=== PATIENT | male | born 1985 | race Caucasian/White ===

== ENCOUNTER 2016-09-25 11:25 | Emergency (ER) | payer OTHER ==
[2016-09-25 11:40] VITALS: BP 161/96
--- NOTE | 2016-09-25 12:11 | XRAY ---
Indication: Cough. Comparison: June 16, 2016. PA/lateral chest remains clear. Heart is not enlarged again with left-sided Groshong. Vascularity normal. Bony thorax intact. Impression: Stable nonacute chest.
[2016-09-25 12:39] LABS: Mean Cell Volume 87.4 fl (78-100); Mean Corpuscular Hemoglobin 30.6 pg (26-32); Mean Platelet Volume 10.7 fl (6-9.5); Platelet Count 172 K/mm3 (150-450); Red Blood Count 4.94 M/mm3 (4.1-5.6); Red Cell Distribution Width 12.8 % (11.5-14.0); White Blood Count 9.8 K/mm3 (4.0-10.5)
[2016-09-25 12:47] LABS: ALBUMIN 3.5 g/dL (3.4-5.0); ALKALINE PHOSPHATASE 60 U/L (46-116); ANION GAP 16.5 MEQ/L (5-15); BILIRUBIN,TOTAL 0.4 mg/dL (0.2-1.0); BLOOD UREA NITROGEN 13 mg/dL (9-20); CHLORIDE 103 mEq/L (98-107); Carbon Dioxide 25.9 mEq/L (21-32); Glucose 167 MG/DL (70-110); SGOT/AST 20 U/L (15-37); SGPT/ALT 31 U/L (12-78); SODIUM 141 mEq/L (136-145); Total Protein 6.9 gm/dL (6.4-8.2)
--- NOTE | 2016-09-25 13:04 | ERPHSYRPT ---
- History of Present Illness Time Seen by Provider: 09/25/16 11:35 Source: patient Exam Limitations: no limitations Patient Subjective Stated Complaint: cough, congestion Triage Nursing Assessment: cough with yellow sputum for 1 week. congestion to nasal. unsure of fever. states been to dr and quick [facility] and on atb. states gets sob and headache with excertion. lungs diminished but clear. moist cough noted. Cough Quality/Degree: moderate, dry cough Possible Cause: occasional episodes Modifying Factors: Improves With: coughing Associated Symptoms: cough, headache, nasal congestion, nasal drainage, sore throat Allergies/Adverse Reactions: No Known Drug Allergies Allergy (Verified 09/25/16 11:40) Home Medications: Losartan Potassium 50 mg PO DAILY 02/12/14 [History] Metoprolol Succinate 50 mg [Toprol Xl 50 MG] 50 mg PO BID 01/28/15 [ History] Duloxetine HCl [Cymbalta] 120 mg PO DAILY 03/28/15 [History] Clonazepam 0.5 mg [Klonopin 0.5 MG] 1 mg PO TID 06/16/16 [History] Divalproex Sodium [Divalproex Sodium ER] 1,500 mg PO DAILY 06/16/16 [History] Pregabalin [Lyrica 150Mg] 150 mg PO BID 06/16/16 [History] Triamterene/Hydrochlorothiazid [Triamterene-Hctz 75-50 mg Tab] 1 tab PO DAILY [History] Hx Tetanus, Diphtheria Vaccination/Date Given: Yes Hx Influenza Vaccination/Date Given: No Hx Pneumococcal Vaccination/Date Given: No Immunizations Up to Date: Yes - Review of Systems Constitutional: No Symptoms Eyes: No Symptoms Ears, Nose, & Throat: Nose Congestion, Nose Discharge, Painful Swallowing Respiratory: Cough Cardiac: No Symptoms Abdominal/Gastrointestinal: No Symptoms Musculoskeletal: No Symptoms Skin: No Symptoms Neurological: No Symptoms Psychological: No Symptoms Endocrine: No Symptoms Hematologic/Lymphatic: No Symptoms - Past Medical History Pertinent Past Medical History: Yes Neurological History: No Pertinent History ENT History: No Pertinent History Cardiac History: Hypertension Respiratory History: No Pertinent History Endocrine Medical History: No Pertinent History Musculoskeletal History: No Pertinent History GI Medical History: No Pertinent History History: No Pertinent History Psycho-Social History: Anxiety, Bipolar, Depression Male Reproductive Disorders: No Pertinent History Other Medical History: hemochromotosis - Past Surgical History Past Surgical History: Yes Neuro Surgical History: No Pertinent History Cardiac: No Pertinent History Respiratory: No Pertinent History Gastrointestinal: Cholecystectomy, Hernia Repair Genitourinary: No Pertinent History Musculoskeletal: No Pertinent History, Other Male Surgical History: No Pertinent History Other Surgical History: central line Groshong CV catheterx3 - Social History Smoking Status: Never smoker Exposure to second hand smoke: No Drug Use: none Patient Lives Alone: No - Nursing Vital Signs Nursing Vital Signs: Initial Vital Signs Temperature 98.0 F Temperature Source Oral Pulse Rate 116 Respiratory Rate 26 Blood Pressure [Right Arm] 161/96 Pain Intensity 7 - Physical Exam General Appearance: mild distress Eye Exam: eyes nml inspection Ears, Nose, Throat Exam: normal ENT inspection, pharynx normal, moist mucous membranes Neck Exam: normal inspection, non-tender, supple, full range of motion Respiratory Exam: normal breath sounds, lungs clear Cardiovascular Exam: regular rate/rhythm, normal heart sounds, normal peripheral pulses Gastrointestinal/Abdomen Exam: soft, normal bowel sounds Back Exam: normal inspection, decreased range of motion Extremity Exam: normal inspection, normal range of motion, pelvis stable Neurologic Exam: alert, oriented x 3, cooperative, normal mood/affect Skin Exam: normal color, warm, dry SpO2 Interpretation: normal SpO2: 96 Oxygen Delivery: Room Air - Course Nursing assessment & vital signs reviewed: Yes Ordered Tests: Active Orders 24 hr Category Date Time Status CHEST 2 VIEWS (PA AND LAT) Stat Exams 09/25/16 11:41 Completed CBC W DIFF Stat Lab 09/25/16 12:41 Completed CMP Stat Lab 09/25/16 12:41 Completed CULTURE, THROAT Stat Lab 09/25/16 12:41 Received Manual Differential NC Stat Lab 09/25/16 12:41 Completed STREP SCREEN-BETA A Stat Lab 09/25/16 12:41 Completed Lab/Rad Data: Laboratory Result Diagrams 09/25/16 12:41 09/25/16 12:41 Laboratory Results 09/25/16 09/25/16 09/25/16 Range/Units 12:41 12:41 12:41 WBC 9.8 (4.0-10.5) K/mm3 RBC 4.94 (4.1-5.6) M/mm3 Hgb 15.1 (12.5-18.0) gm/dl Hct 43.2 (42-50) % MCV 87.4 (78-100) fl MCH 30.6 (26-32) pg MCHC 35.0 (32-36) g/dl RDW 12.8 (11.5-14.0) % Plt Count 172 (150-450) K/mm3 MPV 10.7 H (6-9.5) fl Sodium 141 (136-145) mEq/L Potassium 4.0 (3.5-5.1) mEq/L Chloride 103 (98-107) mEq/L Carbon Dioxide 25.9 (21-32) mEq/L Anion Gap 16.5 H (5-15) MEQ/L BUN 13 (9-20) mg/dL Creatinine 1.03 (0.55-1.30) mg/dl Estimated GFR > 60 ML/MIN Glucose 167 H (70-110) MG/DL Calcium 8.4 L (8.5-10.1) mg/dL Total Bilirubin 0.4 (0.2-1.0) mg/dL AST 20 (15-37) U/L ALT 31 (12-78) U/L Alkaline Phosphatase 60 (46-116) U/L Serum Total Protein 6.9 (6.4-8.2) gm/dL Albumin 3.5 (3.4-5.0) g/dL Streptococcus Screen NEGATIVE (Negative) - Progress Progress: improved Air Movement: good Blood Culture(s) Obtained: No Antibiotics given: No Will see patient in: office (PCP 1 wwek) Counseled pt/family regarding: lab results, diagnosis, need for follow-up, rad results - Departure Time of Disposition: 13:00 Departure Disposition: Home Clinical Impression: URTI (infection of the upper respiratory tract) Qualifiers: URI type: unspecified viral URI Qualified Code(s): J06.9 - Acute upper respiratory infection, unspecified; B97.89 - Other viral agents as the cause of diseases classified elsewhere Condition: Stable Critical Care Time: No Prescriptions: Methylprednisolone Packet [Medrol Dosepack] 0 mg PO UD #1 packet
[2016-09-25 13:23] VITALS: PULSE 108; O2SAT 95
[2016-09-25 13:27] LABS: ATYPICAL LYMPHS 1 %; BAND 6 % (0.0-2.0); Basophil 1 % (0.0-1.0); Eosinophil 3 % (0.00-3.0); Total Cells Counted 100
[2016-09-25 13:29] LABS: Platelet Estimate NORMAL (NORMAL); Polychromasia 1+
== END 2016-09-25 13:26 | disposition home or self-care (01) ==
LOC: ED 11:25
DX: J06.9 Acute upper respiratory infection, unspecified (principal); B97.89 Other viral agents as the cause of diseases classified elsewhere; J02.9 Acute pharyngitis, unspecified; R05 Cough; I10 Essential (primary) hypertension
CPT/HCPCS: 36415; 71020; 80053; 85025; 87070; 87430; 87631; 99283

== ENCOUNTER 2016-10-17 14:04 | Observation (INO) | payer OTHER ==
[2016-10-17] MEDS ORDERED: Sodium Chloride 0.9% 1000 ML 1,000 ML IV SCH (14:30)
[2016-10-17] MEDS ORDERED: Nitrostat 0.4 MG (ED) SL ONE ×2 (14:30→14:40)
[2016-10-17] MEDS ORDERED: DUONEB 0.5-3 MG/3 ml Neb IH ONE ×2 (14:33→14:42)
--- NOTE | 2016-10-17 14:37 | ERPHSYRPT ---
- History of Present Illness Time Seen by Provider: 10/17/16 14:15 Historian: patient Exam Limitations: clinical condition Patient Subjective Stated Complaint: PT REPORTS LEFT SIDED CHEST PAIN BEGINNING JAVIER 1 HR AGO-STATES THAT HE FELT SOB-DIAPHOERICT ALL DAY Triage Nursing Assessment: PT PALE WARM ET [id number] LABORED UPON ARRIVAL- LUNGS CLEAR ET EQUAL BIALTERALLY-SPEAKING IN COMPLETE SENTECES-CAP REFILL 3 SECONDS-RIGHT RADIAL PULSE REGULAR ET STRONG Physician History: PATIENT WITH HISTORY OF HYPERTENSION, MORBID OBESITY, COMPLAINS OF DIAPHOREISIS AND DYSPNEA ALL DAY, WITH ONSET OF SHARP LEFT ANTERIOR CHEST PAINS RADIATES TO LEFT SHOULDER. RECENTLY TREATED FOR BRONCHITIS AND DYSPNEA OVER 6 WEEKS. DENIES FEVER, CHILLS OR NIGHT SWEATS. Timing/Duration: today Activities at Onset: none (DRIVING VEHICLE) Quality: sharpness Location: substernal Chest Pain Radiation: arm Severity of Pain-Max: moderate Severity of Pain-Current: moderate Modifying Factors: Improves With: movement, change in position Associated Symptoms: hurts to breathe, diaphoresis Prior Chest Pain/Cardiac Workup: no prior cardiac workup Nitro Today/Relief: 0.4 mg x 2 Aspirin Treatment Today: 81 mg x 4, provided at home Allergies/Adverse Reactions: No Known Drug Allergies Allergy (Verified 10/17/16 14:10) Home Medications: Losartan Potassium 60 mg PO BID 02/12/14 [History] Metoprolol Succinate 50 mg [Toprol Xl 50 MG] 50 mg PO BID 01/28/15 [ History] Duloxetine HCl [Cymbalta] 120 mg PO DAILY 03/28/15 [History] Clonazepam 0.5 mg [Klonopin 0.5 MG] 1 mg PO TID 06/16/16 [History] Divalproex Sodium [Divalproex Sodium ER] 1,500 mg PO HS 06/16/16 [History] Pregabalin [Lyrica 150Mg] 150 mg PO BID 06/16/16 [History] Triamterene/Hydrochlorothiazid [Triamterene-Hctz 75-50 mg Tab] 1 tab PO DAILY [History] Hx Tetanus, Diphtheria Vaccination/Date Given: Yes Hx Influenza Vaccination/Date Given: No Hx Pneumococcal Vaccination/Date Given: No Immunizations Up to Date: Yes - Review of Systems Constitutional: Weakness Eyes: No Symptoms Ears, Nose, & Throat: No Symptoms Respiratory: Cough, Dyspnea, Dyspnea on Exertion (LUGO) Cardiac: Chest Pain, Other (DIAPHORESIS), No Edema, No Syncope Abdominal/Gastrointestinal: No Abdominal Pain, No Nausea, No Vomiting, No Diarrhea Genitourinary Symptoms: No Symptoms, No Dysuria Musculoskeletal: No Symptoms, No Back Pain, No Neck Pain Skin: No Symptoms, No Rash Neurological: No Symptoms, No Dizziness, No Focal Weakness, No Sensory Changes Psychological: No Symptoms Endocrine: No Symptoms All Other Systems: Reviewed and Negative - Past Medical History Pertinent Past Medical History: Yes Neurological History: No Pertinent History ENT History: No Pertinent History Cardiac History: Hypertension Respiratory History: No Pertinent History Endocrine Medical History: No Pertinent History Musculoskeletal History: No Pertinent History GI Medical History: No Pertinent History History: No Pertinent History Psycho-Social History: Anxiety, Bipolar, Depression Male Reproductive Disorders: No Pertinent History Other Medical History: hemochromotosis - Past Surgical History Past Surgical History: Yes Neuro Surgical History: No Pertinent History Cardiac: No Pertinent History Respiratory: No Pertinent History Gastrointestinal: Cholecystectomy, Hernia Repair Genitourinary: No Pertinent History Musculoskeletal: No Pertinent History, Other Male Surgical History: No Pertinent History Other Surgical History: central line Groshong CV catheterx3 - Social History Smoking Status: Never smoker Exposure to second hand smoke: No Drug Use: none Patient Lives Alone: No - Nursing Vital Signs Temperature: 97.5 F Temperature Source: Oral Pulse Rate: 113 Respiratory Rate: 26 Pain Intensity: 2 - Physical Exam General Appearance: mild distress, alert Eye Exam: PERRL/EOMI, eyes nml inspection Ears, Nose, Throat Exam: normal ENT inspection, moist mucous membranes Neck Exam: normal inspection, non-tender, supple, full range of motion Respiratory Exam: normal breath sounds, lungs clear, No respiratory distress Cardiovascular Exam: regular rate/rhythm, normal heart sounds Gastrointestinal/Abdomen Exam: soft, normal bowel sounds, No tenderness, No mass Back Exam: normal inspection, No CVA tenderness, No vertebral tenderness Extremity Exam: normal inspection, normal range of motion, pedal edema (+1 PITTING EDEMA) Neurologic Exam: alert, oriented x 3, cooperative, normal mood/affect, sensation nml, No motor deficits Skin Exam: normal color, warm, dry SpO2 Interpretation: borderline oxygenation SpO2: 93 Oxygen Delivery: Room Air - Course EKG Interpreted by Me: RATE, Sinus Rhythm, Sinus Tach, NORMAL AXIS - CT Exams Chest CT Interpretation: Discussed w/radiologist (NO FILLING DEFECTS TO SUGGEST THROMBUS, NO ACUTE LUNG DISEASE, DIFFUSE FATTY INFILTRATION OF THE LIVER) Ordered Tests: Active Orders 24 hr Category Date Time Status Admission/Status Order ROUTINE Care 10/17/16 17:26 Active Call Admit Doctor for Orders ROUTINE Care 10/17/16 17:26 Active Client Integration Manager STAT Care 10/17/16 14:28 Active Code Status Order ROUTINE Care 10/17/16 17:26 Active Fall Protocol ROUTINE Care 10/17/16 17:28 Active IV Care Q6H Care 10/17/16 17:26 Active IV Insertion STAT Care 10/17/16 14:28 Active Implement Chest Pain Pathway ROUTINE Care 10/17/16 17:26 Active Oxygen-ED Only NASAL CANNULA 2 lpm Care 10/17/16 14:28 Active Behzad Hose, Apply ROUTINE Care 10/17/16 17:26 Active Telemetry ROUTINE Care 10/17/16 17:26 Active Vital Signs Q4H Care 10/17/16 17:26 Active Weight,Daily 0600 Care 10/17/16 17:26 Active Cardiac Diet Diet 10/17/16 Dinner Active CHEST WITH CONTRAST [CT] Stat Exams 10/17/16 14:29 Completed CBC W DIFF Stat Lab 10/17/16 14:50 Completed CMP Stat Lab 10/17/16 14:50 Completed LIPID PROFILE AM.LAB Lab 10/18/16 04:00 Ordered Manual Differential NC Stat Lab 10/17/16 14:50 Completed NT PRO BNP Stat Lab 10/17/16 14:50 Completed PROTIME WITH INR Stat Lab 10/17/16 14:50 Completed TROPONIN Q3H Lab 10/17/16 14:50 Completed TROPONIN Q3H Lab 10/17/16 17:30 Ordered TROPONIN Q3H Lab 10/17/16 20:30 Ordered TROPONIN Q3H Lab 10/17/16 23:30 Ordered TROPONIN Q3H Lab 10/18/16 02:30 Ordered EKG Q8HX2,QAMX3,PRN RT 10/17/16 17:26 Active Pulse Oximetry Q4H RT 10/17/16 17:26 Active Respiratory Nebulizer STAT RT 10/17/16 14:33 Completed Transfer Order Routine Transfer 10/17/16 17:26 Ordered Medication Summary Generic Name Dose Route Start Last Admin Trade Name Freq PRN Reason Stop Dose Admin Acetaminophen 650 mg 10/17/16 17:26 Tylenol 325 Mg PO 11/16/16 17:25 Q4H PRN PRN PAIN AND/OR FEVER Al Hydrox/Mg Hydrox/Simethicone 30 ml 10/17/16 17:26 Maalox Es 30 Ml Unit Dose PO 11/16/16 17:25 Q4H PRN PRN INDIGESTION Albuterol/Ipratropium 3 ml 10/17/16 17:30 Duoneb 0.5-3 Mg/3 Ml Neb IH 11/16/16 17:29 Q4HPRN PRN SHORTNESS OF BREATH/WHEEZING Aspirin 325 mg 10/18/16 10:00 Ecotrin 325 Mg PO 11/17/16 09:59 DAILY MONET Sodium Chloride 1,000 mls @ 50 mls/hr 10/17/16 14:30 10/17/16 14:42 Sodium Chloride 0.9% 1000 Ml IV 11/16/16 14:29 50 mls/hr .Q20H MONET Administration Losartan Potassium 50 mg 10/17/16 22:00 Cozaar 50 Mg PO 11/16/16 21:59 BID MONET Magnesium Hydroxide 30 - 60 ml 10/17/16 17:26 Milk Of Magnesia 30 Ml PO 11/16/16 17:25 QDP PRN CONSTIPATION Metoprolol Succinate 50 mg 10/17/16 22:00 Toprol-Xl 25mg Tablets PO 11/16/16 21:59 BID MONET Nitroglycerin 0.4 mg 10/17/16 17:29 Nitrostat 0.4 Mg Tablet SL 11/16/16 17:28 Q5MIN PRN MR X 3 PRN CHEST PAIN Nitroglycerin 1 gm 10/17/16 22:00 Nitro-Bid 2% Ud Packets TOP 11/16/16 21:59 Q8HT MONET Ondansetron HCl 4 mg 10/17/16 17:26 Zofran 4 Mg/2 Ml Vial IV 11/16/16 17:25 Q4H PRN PRN NAUSEA/VOMITING Senna/Docusate Sodium 2 udtab 10/17/16 17:26 Senokot-S Tablet PO 11/16/16 17:25 BID PRN PRN CONSTIPATION Discontinued Medications Generic Name Dose Route Start Last Admin Trade Name Jose Antonio PRN Reason Stop Dose Admin Albuterol/Ipratropium 3 ml 10/17/16 14:33 10/17/16 14:44 Duoneb 0.5-3 Mg/3 Ml Neb IH 10/17/16 14:34 3 ml STAT ONE Administration Albuterol/Ipratropium Confirm 10/17/16 14:42 Duoneb 0.5-3 Mg/3 Ml Neb Administered 10/17/16 14:43 Dose 3 ml IH .STK-MED ONE Nitroglycerin 0.4 mg 10/17/16 14:30 10/17/16 14:48 Nitrostat 0.4 Mg (Ed) SL 10/17/16 14:31 0.4 mg STAT ONE Administration Nitroglycerin Confirm 10/17/16 14:40 Nitrostat 0.4 Mg (Ed) Administered 10/17/16 14:41 Dose 0.4 mg SL .STK-MED ONE Nitroglycerin 1 gm 10/17/16 15:31 10/17/16 15:35 Nitro-Bid 2% Ud Packets TOP 10/17/16 15:32 1 gm STAT ONE Administration Nitroglycerin Confirm 10/17/16 15:34 Nitro-Bid 2% Ud Packets Administered 10/17/16 15:35 Dose 1 gm .ROUTE .STK-MED ONE Lab/Rad Data: Laboratory Result Diagrams 10/17/16 14:50 10/17/16 14:50 Laboratory Results 10/17/16 10/17/16 10/17/16 Range/Units 14:50 14:50 14:50 WBC (4.0-10.5) K/mm3 RBC (4.1-5.6) M/mm3 Hgb (12.5-18.0) gm/dl Hct (42-50) % MCV (78-100) fl MCH (26-32) pg MCHC (32-36) g/dl RDW (11.5-14.0) % Plt Count (150-450) K/mm3 MPV (6-9.5) fl Segmented Neutrophils (36.-66.) % Band Neutrophils (0.0-2.0) % Lymphocytes (Manual) (24-44) % Monocytes (Manual) (0.0-12.0) % Eosinophils (Manual) (0.00-3.0) % Metamyelocytes % Differential Comment Platelet Estimate (NORMAL) Polychromasia Anisocytosis INR 1.01 (0.8-3.0) Sodium 136 (136-145) mEq/L Potassium 4.0 (3.5-5.1) mEq/L Chloride 100 (98-107) mEq/L Carbon Dioxide 28.2 (21-32) mEq/L Anion Gap 11.6 (5-15) MEQ/L BUN 14 (9-20) mg/dL Creatinine 1.06 (0.55-1.30) mg/dl Estimated GFR > 60 ML/MIN Glucose 245 H (70-110) MG/DL Calcium 8.8 (8.5-10.1) mg/dL Total Bilirubin 0.3 (0.2-1.0) mg/dL AST 21 (15-37) U/L ALT 54 (12-78) U/L Alkaline Phosphatase 85 (46-116) U/L Troponin I < 0.017 (0.000-0.056) ng/ml NT-Pro-B Natriuret Pep < 5.0 (0-125) pg/ml Serum Total Protein 6.8 (6.4-8.2) gm/dL Albumin 3.6 (3.4-5.0) g/dL 10/17/16 Range/Units 14:50 WBC 8.3 (4.0-10.5) K/mm3 RBC 5.01 (4.1-5.6) M/mm3 Hgb 15.1 (12.5-18.0) gm/dl Hct 43.7 (42-50) % MCV 87.2 (78-100) fl MCH 30.1 (26-32) pg MCHC 34.6 (32-36) g/dl RDW 13.2 (11.5-14.0) % Plt Count 179 (150-450) K/mm3 MPV 10.5 H (6-9.5) fl Segmented Neutrophils 64 (36.-66.) % Band Neutrophils 4 H (0.0-2.0) % Lymphocytes (Manual) 27 (24-44) % Monocytes (Manual) 1 (0.0-12.0) % Eosinophils (Manual) 3 (0.00-3.0) % Metamyelocytes 1 % Differential Comment ABNORMAL Platelet Estimate NORMAL (NORMAL) Polychromasia RARE Anisocytosis 1+ INR (0.8-3.0) Sodium (136-145) mEq/L Potassium (3.5-5.1) mEq/L Chloride (98-107) mEq/L Carbon Dioxide (21-32) mEq/L Anion Gap (5-15) MEQ/L BUN (9-20) mg/dL Creatinine (0.55-1.30) mg/dl Estimated GFR ML/MIN Glucose (70-110) MG/DL Calcium (8.5-10.1) mg/dL Total Bilirubin (0.2-1.0) mg/dL AST (15-37) U/L ALT (12-78) U/L Alkaline Phosphatase (46-116) U/L Troponin I (0.000-0.056) ng/ml NT-Pro-B Natriuret Pep (0-125) pg/ml Serum Total Protein (6.4-8.2) gm/dL Albumin (3.4-5.0) g/dL - Progress Progress Note: 10/17/16 14:52 PATIENT NOT PLACED ON SPESIS PROTOCOL DUE TO PITTING PERIPHERAL EDEMA Discussed with : Joe (DISCUSSED WITH DR QUINTANA AT 1715 FOR ADMISSION) - Departure Time of Disposition: 17:37 Departure Disposition: Observation Clinical Impression: ACUTE CHEST PAIN Condition: Stable Critical Care Time: No Referrals: TIGRE HARDIN [Primary Care Provider] -
[2016-10-17] MEDS ORDERED: Sodium Chloride 0.9% 1000 ML 1,000 ML ONE (14:40)
[2016-10-17 15:02] LABS: Mean Cell Volume 87.2 fl (78-100); Mean Corpuscular Hemoglobin 30.1 pg (26-32); Mean Platelet Volume 10.5 fl (6-9.5); Platelet Count 179 K/mm3 (150-450); Red Blood Count 5.01 M/mm3 (4.1-5.6); Red Cell Distribution Width 13.2 % (11.5-14.0); White Blood Count 8.3 K/mm3 (4.0-10.5)
[2016-10-17 15:26] LABS: INR 1.01 (0.8-3.0); PROTIME 11.3 SECONDS (8.83-12.87)
[2016-10-17 15:27] LABS: ANISOCYTOSIS 1+; BAND 4 % (0.0-2.0); Eosinophil 3 % (0.00-3.0); Metamyelocyte 1 %; Platelet Estimate NORMAL (NORMAL); Polychromasia RARE; Total Cells Counted 100
[2016-10-17] MEDS ORDERED: NITRO-BID 2% UD PACKETS TOP ONE (15:31)
[2016-10-17 15:34] LABS: ALBUMIN 3.6 g/dL (3.4-5.0); ALKALINE PHOSPHATASE 85 U/L (46-116); ANION GAP 11.6 MEQ/L (5-15); BILIRUBIN,TOTAL 0.3 mg/dL (0.2-1.0); BLOOD UREA NITROGEN 14 mg/dL (9-20); CHLORIDE 100 mEq/L (98-107); Carbon Dioxide 28.2 mEq/L (21-32); Glucose 245 MG/DL (70-110); SGOT/AST 21 U/L (15-37); SGPT/ALT 54 U/L (12-78); SODIUM 136 mEq/L (136-145); Total Protein 6.8 gm/dL (6.4-8.2)
[2016-10-17] MEDS ORDERED: NITRO-BID 2% UD PACKETS ONE (15:34)
--- NOTE | 2016-10-17 16:36 | XRAY ---
Exam: CTA of the chest with IV contrast from 10/17/2016. CTDI: 28.13 Comparison: Two-view chest radiograph series from 09/25/[address] of the chest with IV contrast from 02/11/2014. Indication: Chest pain with dyspnea for 3 weeks, shortness of breath, upper left side chest pain. Technique: Post IV contrast axial images were obtained through the chest during automated injection of 100 cc of [id number]-370 IV contrast material per PE protocol. Reconstructed coronal and sagittal images were created and reviewed. Coronal MIP images were obtained. Findings: Opacification of the main pulmonary artery segment and proximal pulmonary arteries is adequate, although opacification of the distal segmental pulmonary arteries is less than optimal which limits the study. I do not see any definite filling defects within the main pulmonary artery segment, right or left main pulmonary arteries, or the most proximal branches of the main pulmonary arteries. However, distal to this, evaluation is quite limited due to poor opacification. The right hemipelvis thoracic aorta enhances well revealing no aneurysm or dissection. A left-sided Groshong catheter is seen with the tip in the distal SVC. The heart size is normal without pericardial effusion. A couple stable granulomatous calcifications are seen within the distal right paratracheal projection representing no change. A stable calcified granuloma is seen within the peripheral right midlung field. I believe there is a minimal amount of residual thymus tissue in this young adult within the anterior mediastinal fat. This is unchanged. No abnormal perihilar or mediastinal soft tissue lymphadenopathy is seen. The remainder the peripheral lung hong appears clear without air space infiltrates, pneumothorax, or pleural effusion. No suspicious soft tissue lung nodularity is seen. There appears to be some diffuse fatty infiltration the liver. A surgical clip is seen within the subhepatic space consistent with prior cholecystectomy. The adrenal glands appear unremarkable. Impression: 1. The study is mildly limited due to poor opacification of the segmental pulmonary artery branches. I'm told the patient weighs 355 pounds. I see no definite filling defect to suggest thrombus within the main pulmonary artery trunk, right or left main pulmonary arteries, or the most proximal branches of the main pulmonary arteries. Assessment beyond this level is significantly limited and not reliable. 2. Old healed granulomatous disease on the right. 3. No acute lung disease is seen. 4. Diffuse fatty infiltration of the liver.
[2016-10-17] MEDS ORDERED: Senokot-S Tablet PO PRN (17:26)
[2016-10-17] MEDS ORDERED: MILK OF MAGNESIA 30 ML PO PRN (17:26)
[2016-10-17] MEDS ORDERED: Zofran 4 MG/2 ML VIAL IV PRN (17:26)
[2016-10-17] MEDS ORDERED: MAALOX ES 30 ML UNIT DOSE PO PRN (17:26)
[2016-10-17] MEDS ORDERED: Nitrostat 0.4 MG Tablet SL PRN (17:29)
[2016-10-17] MEDS ORDERED: DUONEB 0.5-3 MG/3 ml Neb IH PRN (17:30)
[2016-10-17] MEDS: TYLENOL 325 MG PO PRN (19:30)
[2016-10-17] MEDS: NITRO-BID 2% UD PACKETS TOP SCH (21:25)
[2016-10-17] MEDS ORDERED: Toprol-Xl 25MG Tablets PO SCH (22:00)
[2016-10-17] MEDS ORDERED: Cozaar 50 MG PO SCH (22:00)
[2016-10-18] MEDS ORDERED: Klonopin 0.5 MG PO ONE (00:20)
[2016-10-18] MEDS ORDERED: Depakote EXTENDED RELEASE 250 MG PO SCH (00:30)
[2016-10-18] MEDS: LYRICA 150MG PO SCH ×2 (00:52→09:06)
[2016-10-18] MEDS: TYLENOL 325 MG PO PRN ×2 (01:00→05:24)
[2016-10-18] MEDS: NITRO-BID 2% UD PACKETS TOP SCH (05:24)
--- NOTE | 2016-10-18 08:23 | PCM.DCORD ---
- Discharge Discharge Date: 10/18/16 Prescriptions: New Nitroglycerin 0.4 mg Tablet [Nitrostat 0.4 MG Tablet] 0.4 mg SL Q5MIN PRN MR X 3 PRN #30 bottle PRN Reason: Chest Pain Continue Duloxetine HCl [Cymbalta] 60 mg PO DAILY Divalproex Sodium [Depakote] 1,500 mg PO HS Clonazepam [Klonopin] 1 mg PO TID Pregabalin [Lyrica 150Mg] 150 mg PO BID Losartan Potassium [Cozaar] 50 mg PO DAILY Loratadine 10 mg [Claritin 10 mg] 10 mg PO DAILY Triamterene/Hydrochlorothiazid [Triamterene-Hctz 37.5-25 mg Tb] 1 each PO DAILY Aspirin 81 mg PO DAILY Albuterol Sulfate [Proair Hfa] 2 puff IH Q4HPRN PRN PRN Reason: breathing Follow up with: VELMA BAZZI [ACTIVE STAFF] - 1 Week
[2016-10-18] MEDS ORDERED: Klonopin 0.5 MG PO SCH (10:00)
[2016-10-18] MEDS ORDERED: Toprol Xl 50 MG PO SCH (10:00)
[2016-10-18] MEDS ORDERED: NON-FORMULARY ITEM (Clonazepam [Klonopin] 1 MG) PO SCH (10:00)
[2016-10-18] MEDS ORDERED: NON-FORMULARY ITEM (Aspirin [Aspirin] 81 MG) PO SCH (10:00)
[2016-10-18] MEDS ORDERED: Ecotrin 325 MG PO SCH (10:00)
[2016-10-18] MEDS ORDERED: Cymbalta 30 MG Capsule PO SCH (10:00)
[2016-10-18] MEDS ORDERED: Maxzide-25MG Tablet PO SCH (10:00)
[2016-10-18] MEDS ORDERED: NON-FORMULARY ITEM (Duloxetine Hcl [Cymbalta] 60 MG) PO SCH (10:00)
[2016-10-18] MEDS ORDERED: ECOTRIN 81 MG PO SCH (10:00)
[2016-10-18] MEDS ORDERED: ENOXAPARIN SODIUM SQ SCH (10:00)
[2016-10-18] MEDS ORDERED: Cozaar 50 MG PO SCH (10:00)
[2016-10-18 11:48] VITALS: BP 143/59; PULSE 98; O2SAT 96
--- NOTE | 2016-10-22 08:57 | SSS ---
DISCHARGE DIAGNOSIS: UNSTABLE ANGINA PECTORIS. 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 He reportedly reached for a barf bag. He had his chew in and thought he might throw up. The patient called his mom to ask her about the symptoms of heart attack as he was unfamiliar with the symptoms. He stopped by the home. His mother gave him three aspirin and then he presented to the emergency room. The patient was given sublingual nitroglycerin in the emergency room and he has been chest pain free since that time. The patient reports the episode lasted approximately 15 minutes. FAMILY HISTORY: Positive for his father who of coronary artery disease. PHYSICAL EXAMINATION: Revealed a morbidly obese white male patient. His vital signs recently showed a temperature 98.7F, pulse 94, respiratory rate 24, blood pressure 108/59. O2 saturation 94% on room air. HEENT: Normocephalic, atraumatic. Pupils equal round reactive to light. Extraocular movements intact. Oropharynx is pink and moist. NECK: Supple without lymphadenopathy, thyromegaly or JVD. CHEST: Clear to auscultation with good air movement bilaterally. HEART: Regular rate and rhythm without murmurs, rubs or gallops. ABDOMEN: Soft. No palpable masses were felt. EXTREMITIES: Without clubbing, cyanosis or edema. NEUROLOGIC: The patient is alert and oriented x3. LAB DATA AND TESTS: Lipid panel cholesterol total of 177 with HDL 32, LDL 86. His troponins have all been less than 0.017. He had a normal CBC. He had metabolic panel show a nonfasting glucose 245. Metabolic panel was otherwise entirely normal. International normalized ratio was 1.01. The patient did have CT scan of the chest which was essentially negative for pulmonary embolism. There is noted to be incidental diffuse fatty infiltration of the liver. The patient's EKG shows sinus rhythm, mildly tachycardic at times on rhythm tracing. ASSESSMENT: A patient with stable angina pectoris. He has been instructed to take five baby aspirin at the time he has recurrent episodes. He was given a prescription for sublingual nitroglycerin to take at home and to return to the emergency room if he has any further episodes or not taken care of by these medications. The patient will be set up for an outpatient evaluation by cardiology and follow up in my office in one week.
== END 2016-10-18 12:45 | disposition home or self-care (01) ==
LOC: ED 14:04 → MED SURG 17:50
PROVIDERS: ADMIT Family Medicine; ATTEND Family Medicine
DX: I20.0 Unstable angina (principal); Z82.49 Family history of ischemic heart disease and other diseases of the circulatory system; Z79.899 Other long term (current) drug therapy; I10 Essential (primary) hypertension
CPT/HCPCS: 36415; 71260; 80053; 80061; 83721; 83880; 84484; 85025; 85610; 93005; 93041; 93268; 94640; 94760; 96360; 96361; 99285; G0378; J1642; J1650; A9270-GY

== ENCOUNTER 2016-12-28 15:50 | Inpatient (IN) | payer OTHER ==
[2016-12-28] MEDS ORDERED: FEVERALL 650 MG PR ONE (15:58)
[2016-12-28] MEDS ORDERED: Sodium Chloride 0.9% 1000 ML 1,000 ML IV STA (15:58)
[2016-12-28 16:07] LABS: VBG BASE EXCESS 3.4 (-2.0-2.0); VBG CARBOXYHEMOGLOBIN 2.3 % T HGB (0.0-6.9); VBG HCO3- 26.8 meq/L (22-28); VBG HEMOGLOBIN 14.4; VBG O2 SATURATION 90.3 (95-100); VBG pH 7.48 (7.32-7.42)
[2016-12-28] MEDS ORDERED: Sodium Chloride 0.9% 1000 ML 1,000 ML ONE ×2 (16:07→16:52)
[2016-12-28 16:09] LABS: Lactic Acid 2.8 (0.4-2.0)
[2016-12-28] MEDS ORDERED: FEVERALL 650 MG ONE (16:12)
--- NOTE | 2016-12-28 16:21 | ERPHSYRPT ---
- History of Present Illness Time Seen by Provider: 12/28/16 15:57 Source: patient, family (mother), other (Dr Davis) Patient Subjective Stated Complaint: high fever, shoulder hurt, and hips hurt, dizzy Triage Nursing Assessment: patient diaphoretic, lethargic, but was able to ambulate to the bed, pupils perrl3, lung sounds clear, skin hot to touch, face is flushed, reports pain in shoulder and hips. diarhea, generalized weakness, Physician History: CC: feels bad Hx: 31 y/o patient of Dr Hardin/Nia. He has hx of hemochromatosis, HTN, depression, anxiety, and fibromyaglia. He was not feeling well since this AM. Recently started amlodipine for HTN 2 weeks ago and has been on increased dose of beta anna. He went to office. Was diaphoretic, weak in the chair, Temp 101 , BP 148/84, HR 130, saturation 95% so was sent to ER. Pt has some headache, mylagias, shoulder ache, diarrhea. No chest pain, abd pain, N/T/W. No rash. No sore throat. Took ibuprofen at home sometime today. Timing/Duration: today Severity: severe Allergies/Adverse Reactions: No Known Drug Allergies Allergy (Verified 10/17/16 18:01) Home Medications: Albuterol Sulfate [Proair Hfa] 2 puff IH Q4HPRN PRN 10/17/16 [History] Aspirin 81 mg PO DAILY 10/17/16 [History] Clonazepam [Klonopin] 1 mg PO TID 10/17/16 [History] Divalproex Sodium [Depakote] 1,500 mg PO HS 10/17/16 [History] Duloxetine HCl [Cymbalta] 60 mg PO DAILY 10/17/16 [History] Loratadine 10 mg [Claritin 10 mg] 10 mg PO DAILY 10/17/16 [History] Losartan Potassium [Cozaar] 100 mg PO DAILY 10/17/16 [History] Pregabalin [Lyrica 150Mg] 150 mg PO BID 10/17/16 [History] Amlodipine Besylate 2.5 mg PO AC 12/28/16 [History] Furosemide 40 mg [Lasix 40 MG] 40 mg PO AC 12/28/16 [History] Metoprolol Succinate 100 mg [Toprol Xl 100 MG] 100 mg PO BID 12/28/16 [ History] Potassium Chloride 8 meq PO AC 12/28/16 [History] Trazodone HCl 50 mg PO HS 12/28/16 [History] Hx Tetanus, Diphtheria Vaccination/Date Given: Yes Hx Influenza Vaccination/Date Given: No Hx Pneumococcal Vaccination/Date Given: No Immunizations Up to Date: Yes - Review of Systems Constitutional: Chills, Malaise, Weakness (all over) Eyes: No Symptoms Ears, Nose, & Throat: No Nose Congestion, No Throat Pain Respiratory: No Cough Cardiac: No Chest Pain, No Syncope Abdominal/Gastrointestinal: Diarrhea, No Abdominal Pain, No Nausea, No Vomiting Genitourinary Symptoms: No Dysuria, No Testicle Pain Musculoskeletal: Myalgias, No Back Pain, No Neck Pain Skin: No Rash Neurological: Headache, No Dizziness, No Focal Weakness, No Parasthesia All Other Systems: Reviewed and Negative - Past Medical History Pertinent Past Medical History: Yes Neurological History: No Pertinent History ENT History: No Pertinent History Cardiac History: Hypertension Respiratory History: No Pertinent History Endocrine Medical History: No Pertinent History Musculoskeletal History: No Pertinent History GI Medical History: No Pertinent History History: No Pertinent History Psycho-Social History: Anxiety, Bipolar, Depression Male Reproductive Disorders: No Pertinent History Other Medical History: hemochromotosis - Past Surgical History Past Surgical History: Yes Neuro Surgical History: No Pertinent History Cardiac: No Pertinent History Respiratory: No Pertinent History Gastrointestinal: Cholecystectomy, Hernia Repair Genitourinary: No Pertinent History Musculoskeletal: Other Male Surgical History: No Pertinent History Other Surgical History: central line Groshong CV catheterx8 - Social History Smoking Status: Never smoker Exposure to second hand smoke: No Drug Use: none Patient Lives Alone: No - Nursing Vital Signs Nursing Vital Signs: Initial Vital Signs Temperature 103.2 F Temperature Source Rectal Pulse Rate 110 Respiratory Rate 26 Blood Pressure [] 128/60 Pain Intensity 0 - Physical Exam General Appearance: alert, obese, other (answers all questions appropriately. Oriented.) Eye Exam: PERRL/EOMI Ears, Nose, Throat Exam: dry mucous membranes, pharyngeal erythema, No tonsillar exudate Neck Exam: normal inspection, non-tender, supple, No meningismus Respiratory Exam: normal breath sounds, lungs clear, No respiratory distress Cardiovascular Exam: regular rate/rhythm, tachycardia Gastrointestinal/Abdomen Exam: soft, No tenderness, No distention Male Genitalia Exam: normal genitalia Back Exam: normal inspection, No vertebral tenderness Extremity Exam: normal inspection, normal range of motion Neurologic Exam: alert, oriented x 3, cooperative, property worker II-XII nml as tested, normal mood/affect, agitation, No motor deficits Skin Exam: diaphoresis, other (hot skin without rash) SpO2 Interpretation: normal SpO2: 95 Oxygen Delivery: Room Air - Course Nursing assessment & vital signs reviewed: Yes EKG Interpreted by Me: RATE (120), Sinus Tach, NORMAL AXIS, NORMAL INTERVALS ( QTc 427), Non-specific ST Changes - Radiology Exams cxr X-ray Interpretation: Teleradiologist Report (new right lower to mid lung infiltrate) Ordered Tests: Active Orders 24 hr Category Date Time Status Accucheck STAT Care 12/28/16 15:58 Active CO2 Monitoring STAT Care 12/28/16 17:20 Active Plow Mechanic STAT Care 12/28/16 15:58 Active Clean Catch Urine Specimen STAT Care 12/28/16 15:57 Active EKG-ER Only STAT Care 12/28/16 15:57 Active Schroeder [Catheter-Anderson Schroeder] STAT Care 12/28/16 17:21 Active IV Insertion STAT Care 12/28/16 15:58 Active IV Insertion-2nd Peripheral STAT Care 12/28/16 16:09 Active Oxygen-ED Only NASAL CANNULA 2 lpm Care 12/28/16 15:58 Active Pulse Oximetry (ED) STAT Care 12/28/16 15:58 Active Rectal Temperature STAT Care 12/28/16 15:58 Active Saline Lock STAT Care 12/28/16 15:58 Active CHEST 1 VIEW (PORTABLE) Stat Exams 12/28/16 15:58 Completed BLOOD CULTURE Stat Lab 12/28/16 16:00 Received CBC W DIFF Stat Lab 12/28/16 16:00 Completed CMP Stat Lab 12/28/16 16:00 Completed CULTURE, THROAT Stat Lab 12/28/16 16:10 Received CULTURE,URINE Stat Lab 12/28/16 16:40 Received Lactic Acid Stat Lab 12/28/16 15:58 Results Manual Differential NC Stat Lab 12/28/16 16:00 Completed PROTIME WITH INR Stat Lab 12/28/16 16:00 Completed PTT Stat Lab 12/28/16 16:00 Completed STREP SCREEN-BETA A Stat Lab 12/28/16 16:10 Completed TROPONIN Stat Lab 12/28/16 16:00 Completed UA W/ MICROSCOPIC Stat Lab 12/28/16 16:40 Completed VALPROIC ACID ([place]) Stat Lab 12/28/16 16:00 Completed VENOUS BLOOD GAS Stat Lab 12/28/16 15:58 Completed Medication Summary Generic Name Dose Route Start Last Admin Trade Name Freq PRN Reason Stop Dose Admin Sodium Chloride 1,000 mls @ 500 mls/hr 12/28/16 17:00 12/28/16 17:01 Sodium Chloride 0.9% 1000 Ml IV 01/27/17 16:59 500 mls/hr .Q2H MONET Administration Azithromycin 500 mg in 250 mls @ 250 mls/hr 12/28/16 17:01 Zithromax 500 Mg/ 250 Ml Nacl Premix IV 12/28/16 18:00 STAT STA Vancomycin HCl 2.5 gm/ Sodium 500 mls @ 250 mls/hr 12/28/16 18:00 Chloride IV 01/27/17 17:59 Q12H MONET Discontinued Medications Generic Name Dose Route Start Last Admin Trade Name Jose Antonio PRN Reason Stop Dose Admin Acetaminophen 975 mg 12/28/16 15:58 12/28/16 16:13 Feverall 650 Mg MD 12/28/16 15:59 975 mg STAT ONE Administration Acetaminophen Confirm 12/28/16 16:12 Feverall 650 Mg Administered 12/28/16 16:13 Dose 1,300 mg .ROUTE .STK-MED ONE Sodium Chloride 1,000 mls @ 999 mls/hr 12/28/16 15:58 12/28/16 16:29 Sodium Chloride 0.9% 1000 Ml IV 12/28/16 16:58 999 mls/hr .Q1H1M STA Administration Sodium Chloride Confirm 12/28/16 16:07 Sodium Chloride 0.9% 1000 Ml Administered 12/28/16 16:08 Dose 1,000 mls @ ud .ROUTE .STK-MED ONE Ceftriaxone Sodium/Dextrose 2 g in 50 mls @ 100 mls/hr 12/28/16 16:31 16:41 Rocephin 2 Gm-D5w 50ml Bag IV 12/28/16 17:00 100 mls/hr STAT STA Administration Ceftriaxone Sodium/Dextrose Confirm 12/28/16 16:39 Rocephin 2 Gm-D5w 50ml Bag Administered 12/28/16 16:40 Dose 2 g in 50 mls @ ud IV .STK-MED ONE Non-Formulary Medication 1 each 12/28/16 17:01 Pharmacy Dosing Required: Vancomycin IV 12/28/16 17:02 STAT ONE Lab/Rad Data: Laboratory Result Diagrams 12/28/16 16:00 12/28/16 16:00 Laboratory Results 12/28/16 12/28/16 12/28/16 Range/Units 16:40 16:10 16:10 WBC (4.0-10.5) K/mm3 RBC (4.1-5.6) M/mm3 Hgb (12.5-18.0) gm/dl Hct (42-50) % MCV (78-100) fl MCH (26-32) pg MCHC (32-36) g/dl RDW (11.5-14.0) % Plt Count (150-450) K/mm3 MPV (6-9.5) fl INR (0.8-3.0) APTT (24.1-36.1) SECONDS VBG pH (7.32-7.42) VBG pCO2 at Pat Temp (42-55) mm/Hg VBG pO2 at Pat Temp (25-40) mm/Hg VBG HCO3 (22-28) meq/L VBG O2 Sat (Mitzy) (95-100) VBG Base Excess (-2.0-2.0) VBG Hemoglobin VBG Carboxyhemoglobin (0.0-6.9) % T HGB POC Potassium (3.5-5.1) Sodium (136-145) mEq/L Potassium (3.5-5.1) mEq/L Chloride (98-107) mEq/L Carbon Dioxide (21-32) mEq/L Anion Gap (5-15) MEQ/L BUN (9-20) mg/dL Creatinine (0.55-1.30) mg/dl Estimated GFR ML/MIN Glucose (70-110) MG/DL Lactic Acid (0.4-2.0) Calcium (8.5-10.1) mg/dL Total Bilirubin (0.2-1.0) mg/dL AST (15-37) U/L ALT (12-78) U/L Alkaline Phosphatase (46-116) U/L Troponin I (0.000-0.056) ng/ml Serum Total Protein (6.4-8.2) gm/dL Albumin (3.4-5.0) g/dL Ur Collection Type CATH Urine Color CRISTY (YELLOW) Urine Appearance CLEAR (CLEAR) Urine pH 6.0 (5-6) Ur Specific Harmony 1.015 (1.005-1.025) Urine Protein NEGATIVE (Negative) Urine Ketones SMALL (NEGATIVE) Urine Blood 50 (0-5) Godfrey/ul Urine Nitrite NEGATIVE (NEGATIVE) Urine Bilirubin NEGATIVE (NEGATIVE) Urine Urobilinogen NORMAL (0-1) mg/dL Ur Leukocyte Esterase NEGATIVE (NEGATIVE) Urine Microscopic RBC 5-10 (0-2) /HPF Urine Microscopic WBC 2-5 (0-5) /HPF Urine Bacteria FEW (NEGATIVE) /HPF Urine Mucus MODERATE (NEGATIVE) /HPF Urine Glucose 1000 (NEGATIVE) mg/dL Valproic Acid (50-100) UG/ML Influenza Type A Ag NEGATIVE (NEGATIVE) Influenza Type B Ag NEGATIVE (NEGATIVE) RSV (PCR) NEGATIVE (Negative) Streptococcus Screen NEGATIVE (Negative) Specimen Received 12/28/16 1640 12/28/16 12/28/16 12/28/16 Range/Units 16:00 16:00 16:00 WBC (4.0-10.5) K/mm3 RBC (4.1-5.6) M/mm3 Hgb (12.5-18.0) gm/dl Hct (42-50) % MCV (78-100) fl MCH (26-32) pg MCHC (32-36) g/dl RDW (11.5-14.0) % Plt Count (150-450) K/mm3 MPV (6-9.5) fl INR 1.06 (0.8-3.0) APTT 27.7 (24.1-36.1) SECONDS VBG pH (7.32-7.42) VBG pCO2 at Pat Temp (42-55) mm/Hg VBG pO2 at Pat Temp (25-40) mm/Hg VBG HCO3 (22-28) meq/L VBG O2 Sat (Mitzy) (95-100) VBG Base Excess (-2.0-2.0) VBG Hemoglobin VBG Carboxyhemoglobin (0.0-6.9) % T HGB POC Potassium (3.5-5.1) Sodium (136-145) mEq/L Potassium (3.5-5.1) mEq/L Chloride (98-107) mEq/L Carbon Dioxide (21-32) mEq/L Anion Gap (5-15) MEQ/L BUN (9-20) mg/dL Creatinine (0.55-1.30) mg/dl Estimated GFR ML/MIN Glucose (70-110) MG/DL Lactic Acid (0.4-2.0) Calcium (8.5-10.1) mg/dL Total Bilirubin (0.2-1.0) mg/dL AST (15-37) U/L ALT (12-78) U/L Alkaline Phosphatase (46-116) U/L Troponin I < 0.017 (0.000-0.056) ng/ml Serum Total Protein (6.4-8.2) gm/dL Albumin (3.4-5.0) g/dL Ur Collection Type Urine Color (YELLOW) Urine Appearance (CLEAR) Urine pH (5-6) Ur Specific Harmony (1.005-1.025) Urine Protein (Negative) Urine Ketones (NEGATIVE) Urine Blood (0-5) Godfrey/ul Urine Nitrite (NEGATIVE) Urine Bilirubin (NEGATIVE) Urine Urobilinogen (0-1) mg/dL Ur Leukocyte Esterase (NEGATIVE) Urine Microscopic RBC (0-2) /HPF Urine Microscopic WBC (0-5) /HPF Urine Bacteria (NEGATIVE) /HPF Urine Mucus (NEGATIVE) /HPF Urine Glucose (NEGATIVE) mg/dL Valproic Acid 52.3 (50-100) UG/ML Influenza Type A Ag (NEGATIVE) Influenza Type B Ag (NEGATIVE) RSV (PCR) (Negative) Streptococcus Screen (Negative) Specimen Received 12/28/16 12/28/16 12/28/16 Range/Units 16:00 16:00 15:58 WBC 11.5 H (4.0-10.5) K/mm3 RBC 4.62 (4.1-5.6) M/mm3 Hgb 14.0 (12.5-18.0) gm/dl Hct 40.0 L (42-50) % MCV 86.6 (78-100) fl MCH 30.3 (26-32) pg MCHC 35.0 (32-36) g/dl RDW 14.0 (11.5-14.0) % Plt Count 192 (150-450) K/mm3 MPV 10.0 H (6-9.5) fl INR (0.8-3.0) APTT (24.1-36.1) SECONDS VBG pH 7.48 H (7.32-7.42) VBG pCO2 at Pat Temp 36 L (42-55) mm/Hg VBG pO2 at Pat Temp 50 H (25-40) mm/Hg VBG HCO3 26.8 (22-28) meq/L VBG O2 Sat (Mitzy) 90.3 L (95-100) VBG Base Excess 3.4 H (-2.0-2.0) VBG Hemoglobin 14.4 VBG Carboxyhemoglobin 2.3 (0.0-6.9) % T HGB POC Potassium 4.0 (3.5-5.1) Sodium 136 (136-145) mEq/L Potassium 3.9 (3.5-5.1) mEq/L Chloride 99 (98-107) mEq/L Carbon Dioxide 24.4 (21-32) mEq/L Anion Gap 16.9 H (5-15) MEQ/L BUN 10 (9-20) mg/dL Creatinine 1.06 (0.55-1.30) mg/dl Estimated GFR > 60 ML/MIN Glucose 216 H (70-110) MG/DL Lactic Acid (0.4-2.0) Calcium 9.3 (8.5-10.1) mg/dL Total Bilirubin 0.80 (0.2-1.0) mg/dL AST 28 (15-37) U/L ALT 62 (12-78) U/L Alkaline Phosphatase 83 (46-116) U/L Troponin I (0.000-0.056) ng/ml Serum Total Protein 7.2 (6.4-8.2) gm/dL Albumin 3.9 (3.4-5.0) g/dL Ur Collection Type Urine Color (YELLOW) Urine Appearance (CLEAR) Urine pH (5-6) Ur Specific Harmony (1.005-1.025) Urine Protein (Negative) Urine Ketones (NEGATIVE) Urine Blood (0-5) Godfrey/ul Urine Nitrite (NEGATIVE) Urine Bilirubin (NEGATIVE) Urine Urobilinogen (0-1) mg/dL Ur Leukocyte Esterase (NEGATIVE) Urine Microscopic RBC (0-2) /HPF Urine Microscopic WBC (0-5) /HPF Urine Bacteria (NEGATIVE) /HPF Urine Mucus (NEGATIVE) /HPF Urine Glucose (NEGATIVE) mg/dL Valproic Acid (50-100) UG/ML Influenza Type A Ag (NEGATIVE) Influenza Type B Ag (NEGATIVE) RSV (PCR) (Negative) Streptococcus Screen (Negative) Specimen Received 12/28/16 Range/Units 15:58 WBC (4.0-10.5) K/mm3 RBC (4.1-5.6) M/mm3 Hgb (12.5-18.0) gm/dl Hct (42-50) % MCV (78-100) fl MCH (26-32) pg MCHC (32-36) g/dl RDW (11.5-14.0) % Plt Count (150-450) K/mm3 MPV (6-9.5) fl INR (0.8-3.0) APTT (24.1-36.1) SECONDS VBG pH (7.32-7.42) VBG pCO2 at Pat Temp (42-55) mm/Hg VBG pO2 at Pat Temp (25-40) mm/Hg VBG HCO3 (22-28) meq/L VBG O2 Sat (Mitzy) (95-100) VBG Base Excess (-2.0-2.0) VBG Hemoglobin VBG Carboxyhemoglobin (0.0-6.9) % T HGB POC Potassium (3.5-5.1) Sodium (136-145) mEq/L Potassium (3.5-5.1) mEq/L Chloride (98-107) mEq/L Carbon Dioxide (21-32) mEq/L Anion Gap (5-15) MEQ/L BUN (9-20) mg/dL Creatinine (0.55-1.30) mg/dl Estimated GFR ML/MIN Glucose (70-110) MG/DL Lactic Acid 2.8 H (0.4-2.0) Calcium (8.5-10.1) mg/dL Total Bilirubin (0.2-1.0) mg/dL AST (15-37) U/L ALT (12-78) U/L Alkaline Phosphatase (46-116) U/L Troponin I (0.000-0.056) ng/ml Serum Total Protein (6.4-8.2) gm/dL Albumin (3.4-5.0) g/dL Ur Collection Type Urine Color (YELLOW) Urine Appearance (CLEAR) Urine pH (5-6) Ur Specific Harmony (1.005-1.025) Urine Protein (Negative) Urine Ketones (NEGATIVE) Urine Blood (0-5) Godfrey/ul Urine Nitrite (NEGATIVE) Urine Bilirubin (NEGATIVE) Urine Urobilinogen (0-1) mg/dL Ur Leukocyte Esterase (NEGATIVE) Urine Microscopic RBC (0-2) /HPF Urine Microscopic WBC (0-5) /HPF Urine Bacteria (NEGATIVE) /HPF Urine Mucus (NEGATIVE) /HPF Urine Glucose (NEGATIVE) mg/dL Valproic Acid (50-100) UG/ML Influenza Type A Ag (NEGATIVE) Influenza Type B Ag (NEGATIVE) RSV (PCR) (Negative) Streptococcus Screen (Negative) Specimen Received - Progress Progress Note: 12/28/16 16:20 He is febrile and tachycardic. LAbs ordered. IVF bolus in progress. APAP given. Etiology uncertain. 12/28/16 17:00 Pt alert, not hypotensive, saturations good. Neck supple. Will initiate Rx for Community acquired pneumonia. 12/28/16 17:24 Stable. HR improving. BP ok. Called Dr Loaiza. IV rocephin/zithromax/vanco given for abtx coverage as he has indwelling CVL. Discussed with : Fadia Counseled pt/family regarding: lab results, diagnosis, need for follow-up, rad results - Departure Time of Disposition: 17:24 Departure Disposition: In-patient Admission (ICU Dr Hardin) Clinical Impression: Fever, Morbid obesity Sepsis Qualifiers: Sepsis type: sepsis due to unspecified organism Qualified Code(s): A41.9 - Sepsis, unspecified organism RLL pneumonia Qualifiers: Aspiration pneumonia type: unspecified Condition: Fair Critical Care Time: Yes Critical Care Time(excluding separately billable procedures): 30-74 minutes Referrals: TIGRE HARDIN [Primary Care Provider] -
[2016-12-28] MEDS ORDERED: ROCEPHIN 2 Gm-D5w 50ML BAG** 2 G/50 ML IVPB IV STA (16:31)
[2016-12-28 16:32] LABS: INR 1.06 (0.8-3.0); Mean Cell Volume 86.6 fl (78-100); Mean Corpuscular Hemoglobin 30.3 pg (26-32); Platelet Count 192 K/mm3 (150-450); Red Blood Count 4.62 M/mm3 (4.1-5.6); White Blood Count 11.5 K/mm3 (4.0-10.5)
[2016-12-28 16:35] LABS: PTT 27.7 SECONDS (24.1-36.1)
[2016-12-28] MEDS ORDERED: ROCEPHIN 2 Gm-D5w 50ML BAG** 2 G/50 ML IVPB IV ONE (16:39)
[2016-12-28 16:42] LABS: ALBUMIN 3.9 g/dL (3.4-5.0); ALKALINE PHOSPHATASE 83 U/L (46-116); ANION GAP 16.9 MEQ/L (5-15); BLOOD UREA NITROGEN 10 mg/dL (9-20); CHLORIDE 99 mEq/L (98-107); Carbon Dioxide 24.4 mEq/L (21-32); Glucose 216 MG/DL (70-110); Potassium 3.9 mEq/L (3.5-5.1); SGOT/AST 28 U/L (15-37); SGPT/ALT 62 U/L (12-78); SODIUM 136 mEq/L (136-145); Total Protein 7.2 gm/dL (6.4-8.2)
[2016-12-28] MEDS: Sodium Chloride 0.9% 1000 ML 1,000 ML IV SCH ×2 (17:01→19:06)
[2016-12-28] MEDS ORDERED: PHARMACY DOSING REQUIRED: VANCOMYCIN IV ONE ×2 (17:01→19:03)
[2016-12-28] MEDS ORDERED: Zithromax 500 MG/ 250 ML NaCl Premix 500 MG/250 ML IVPB IV STA (17:01)
--- NOTE | 2016-12-28 17:05 | XRAY ---
Indication: Possible sepsis. Comparison: September 25, 2016. Portable chest demonstrates new small patchy right mid to lower lung infiltrate/atelectasis. Remaining heart, lungs, and bony thorax normal again with incidental right midlung calcified granuloma.
[2016-12-28 17:10] LABS: Bilirubin NEGATIVE (NEGATIVE); Blood 50 Ery/ul (0-5); COMPLETE URINE MICROSCOPIC? YES; Collection Type CATH; Glucose 1000 mg/dL (NEGATIVE); Leukocyte Esterase NEGATIVE (NEGATIVE); Mucus MODERATE /HPF (NEGATIVE)
[2016-12-28 17:11] LABS: Bacteria FEW /HPF (NEGATIVE)
[2016-12-28] MEDS: VANCOCIN 1 GM VIAL*** 2.5 GM in Sodium Chloride 0.9% 500 ML 500 ML IV SCH (17:31)
[2016-12-28 17:33] LABS: BAND 13 % (0.0-2.0); Eosinophil 1 % (0.00-3.0); Platelet Estimate NORMAL (NORMAL); Total Cells Counted 100
[2016-12-28] MEDS ORDERED: TYLENOL 325 MG PO PRN (19:03)
[2016-12-28] MEDS: NovoLOG Insulin SQ PRN (20:23)
[2016-12-28] MEDS: Zithromax 500 MG/ 250 ML NaCl Premix 500 MG/250 ML IVPB IV SCH (21:53)
[2016-12-29] MEDS: NovoLOG Insulin SQ PRN ×3 (00:25→21:12)
[2016-12-29] MEDS: Sodium Chloride 0.9% 10 ML FLUSH Syringe IV SCH ×3 (05:32→21:18)
[2016-12-29 06:04] LABS: Mean Cell Volume 89.8 fl (78-100); Mean Corpuscular Hemoglobin 30.5 pg (26-32); Mean Platelet Volume 10.1 fl (6-9.5); Platelet Count 155 K/mm3 (150-450); Red Cell Distribution Width 14.7 % (11.5-14.0); White Blood Count 8.2 K/mm3 (4.0-10.5)
[2016-12-29 06:17] LABS: ALKALINE PHOSPHATASE 63 U/L (46-116); ANION GAP 11.4 MEQ/L (5-15); BLOOD UREA NITROGEN 8 mg/dL (9-20); CHLORIDE 106 mEq/L (98-107); Carbon Dioxide 28.7 mEq/L (21-32); Glucose 161 MG/DL (70-110); Potassium 3.7 mEq/L (3.5-5.1); SGOT/AST 28 U/L (15-37); SGPT/ALT 50 U/L (12-78); SODIUM 142 mEq/L (136-145); Total Protein 6.1 gm/dL (6.4-8.2)
[2016-12-29] MEDS: Sodium Chloride 0.9% 1000 ML 1,000 ML IV SCH ×3 (07:23→21:10)
[2016-12-29 07:33] LABS: Eosinophil 2 % (0.00-3.0); Platelet Estimate NORMAL (NORMAL); Total Cells Counted 100; Toxic Granulation 1+
[2016-12-29] MEDS: VANCOCIN 1 GM VIAL*** 2.5 GM in Sodium Chloride 0.9% 500 ML 500 ML IV SCH ×2 (08:31→17:07)
[2016-12-29] MEDS ORDERED: PNEUMOVAX 23 IM ONE (10:00)
--- NOTE | 2016-12-29 10:44 | PCM.HP ---
History of Present Illness - Chief Complaint Chief Complaint: RLL pneumonia, severe sepsis, fever History of Present Illness: is a 31 year old male pt of Dr. Rocha with hemachromatosis who came to ER yesterday c/o 1 d of feeling very ill. For about a week he c/o diarrhea, then yesterday his shoulders and hips started hurting. He had cold chills and just didn't feel well; his mother made him an appointment at [facility]. Dr. Davis found his temp to be 102 and he was sent to the ER, where his temperature was 104. He was admitted for sepsis, possible RLL PNA on zithromax, rocephin, and vancomycin, IV. His pH was 7.45, depakote level in therapeutic range, WBC 11.5, BP to 107/69 for a low. This morning his WBC count is 8.2. He is afebrile and feeling much better. No diarrhea since admission. He c/o feeling intermittent chest pain for the past 1 month. Pain is to L parasternal, sometimes radiating to the R chest and the back, "grabbing" pain, worse with exertion, resolves with rest. Pt sees Dr. Kramer; had an echo this year but has never had a stress test. Last chest pain was 2-3 days ago. - Review of Systems Constitutional: Fever, Chills Respiratory: Short Of Breath, No Cough Cardiac: Chest Pain Abdominal/Gastrointestinal: Diarrhea Psychological: Anxiety, No Depression, No Suicidal Ideations All Other Systems: Reviewed and Negative Medications & Allergies Home Medications: Home Medication List Albuterol Sulfate [Proair Hfa] 2 puff IH Q4HPRN PRN 10/17/16 [History Confirmed 12/28/16] Aspirin 81 mg PO DAILY 10/17/16 [History Confirmed 12/28/16] Clonazepam [Klonopin] 1 mg PO TID 10/17/16 [History Confirmed 12/28/16] Divalproex Sodium [Depakote] 1,500 mg PO HS 10/17/16 [History Confirmed 12/28/16 ] Duloxetine HCl [Cymbalta] 60 mg PO DAILY 10/17/16 [History Confirmed 12/28/16] Loratadine 10 mg [Claritin 10 mg] 10 mg PO DAILY 10/17/16 [History Confirmed 12/28/16] Losartan Potassium [Cozaar] 100 mg PO DAILY 10/17/16 [History Confirmed 12/28/16 ] Pregabalin [Lyrica 150Mg] 150 mg PO QAM 10/17/16 [History Confirmed 12/28/16] Nitroglycerin 0.4 mg Tablet [Nitrostat 0.4 MG Tablet] 0.4 mg SL Q5MIN PRN MR X 3 PRN #30 bottle 10/18/16 [Rx Confirmed 12/28/16] Amlodipine Besylate 2.5 mg PO AC 12/28/16 [History Confirmed 12/28/16] Furosemide 40 mg [Lasix 40 MG] 40 mg PO AC 12/28/16 [History Confirmed ] Metoprolol Succinate 100 mg [Toprol Xl 100 MG] 100 mg PO BID 12/28/16 [ History Confirmed 12/28/16] Naproxen 375 mg [Naprosyn 375 mg] 375 mg PO QHS 12/28/16 [History Confirmed 12/28/16] Potassium Chloride 8 meq PO AC 12/28/16 [History Confirmed 12/28/16] Allergies/Adverse Reactions: Allergies Allergy/AdvReac Type Severity Reaction Status Date / Time No Known Drug Allergies Allergy Verified 10/17/16 18:01 - Past Medical History Past Medical History: Yes Neurological History: No Pertinent History ENT History: No Pertinent History Cardiac History: Hypertension Respiratory History: No Pertinent History Endocrine Medical History: No Pertinent History Musculoskelatal History: No Pertinent History GI Medical History: No Pertinent History History: No Pertinent History Pyscho-Social History: Anxiety, Bipolar, Depression Male Reproductive Disorders: No Pertinent History Comment: hemochromotosis - Past Surgical History Past Surgical History: Yes Neuro Surgical History: No Pertinent History Cardiac History: No Pertinent History Respiratory Surgery: No Pertinent History GI Surgical History: Cholecystectomy, Hernia Repair Genitourinary Surgical Hx: No Pertinent History Musculskeletal Surgical Hx: Other Male Surgical History: No Pertinent History Other Surgical History: central line Groshong CV catheterx8 - Social History Smoking Status: Never smoker Exposure to second hand smoke: No Alcohol: None Drug Use: none - Physical Exam Vital Signs: Vital Signs - 24 hr Temp Pulse Resp BP Pulse Ox 12/29/16 10:00 97.5 F 82 25 H 136/86 97 12/29/16 08:00 97.3 F 83 23 131/78 98 12/29/16 06:00 97.3 F 81 24 126/75 99 12/29/16 04:00 97.3 F 75 25 H 121/82 12/29/16 02:00 97.5 F 83 25 H 116/87 99 12/29/16 00:01 83 12/29/16 00:00 97.9 F 83 28 H 133/79 98 12/28/16 22:00 98.1 F 80 24 142/70 100 12/28/16 20:59 96 H 31 H 97 12/28/16 20:00 99.5 F 90 22 123/60 98 12/28/16 19:29 100.3 F 100 H 22 103/59 98 12/28/16 19:17 97 12/28/16 18:12 100.5 F 105 H 18 107/69 12/28/16 17:25 95 12/28/16 16:50 110 H 26 H 128/60 12/28/16 16:42 103.2 F 118 H 20 128/60 98 12/28/16 16:28 103.2 F 12/28/16 15:58 95 12/28/16 15:52 102.9 F 126 H 16 121/59 95 Oxygen-Last 24 hours O2 Percentage 2 Liters = 28% O2 Percentage 2 Liters = 28% O2 Percentage 2 Liters = 28% O2 Percentage 2 Liters = 28% O2 Percentage 2 Liters = 28% O2 Percentage 2 Liters = 28% O2 Percentage 2 Liters = 28% O2 Percentage 2 Liters = 28% O2 Percentage 2 Liters = 28% O2 Percentage 2 Liters = 28% O2 Percentage 2 Liters = 28% O2 Percentage 2 Liters = 28% General Appearance: no apparent distress, obese Neurologic Exam: alert, oriented x 3, cooperative Eye Exam: eyes nml inspection Neck Exam: normal inspection, non-tender, supple, No lymphadenopathy Respiratory Exam: normal breath sounds, lungs clear, other (Groshong catheter present L upper chest), No crackles/rales, No rhonchi, No wheezing Cardiovascular Exam: regular rate/rhythm, normal heart sounds, No murmur Gastrointestinal/Abdomen Exam: soft, normal bowel sounds, No tenderness, No distention Back Exam: normal inspection Extremity Exam: swelling (trace pretibial edema bilat) Skin Exam: normal color, warm, dry Results - Labs Lab/Micro Results: Accuchecks Date 12/29/16 Date 12/29/16 Date 12/28/16 Time 04:11 Time 00:20 Time 20:18 Accucheck Value: 157 Accucheck Value: 166 Accucheck Value: 239 Accucheck Value: 228 Lab Results-Last 24 Hours 12/29/16 12/29/16 12/29/16 Range/Units 05:45 05:54 05:54 WBC 8.2 (4.0-10.5) K/mm3 RBC 4.10 (4.1-5.6) M/mm3 Hgb 12.5 (12.5-18.0) gm/dl Hct 36.8 L (42-50) % MCV 89.8 (78-100) fl MCH 30.5 (26-32) pg MCHC 34.0 (32-36) g/dl RDW 14.7 H (11.5-14.0) % Plt Count 155 (150-450) K/mm3 MPV 10.1 H (6-9.5) fl Segmented Neutrophils 58 (36.-66.) % Lymphocytes (Manual) 31 (24-44) % Monocytes (Manual) 9 (0.0-12.0) % Eosinophils (Manual) 2 (0.00-3.0) % Differential Comment NORMAL Toxic Granulation 1+ Platelet Estimate NORMAL (NORMAL) Sodium 142 (136-145) mEq/L Potassium 3.7 (3.5-5.1) mEq/L Chloride 106 (98-107) mEq/L Carbon Dioxide 28.7 (21-32) mEq/L Anion Gap 11.4 (5-15) MEQ/L BUN 8 L (9-20) mg/dL Creatinine 0.81 (0.55-1.30) mg/dl Estimated GFR > 60 ML/MIN Glucose 161 H (70-110) MG/DL Hemoglobin A1c (4.5-6.2) Lactic Acid 1.2 (0.4-2.0) Calcium 8.2 L (8.5-10.1) mg/dL Total Bilirubin 0.50 (0.2-1.0) mg/dL AST 28 (15-37) U/L ALT 50 (12-78) U/L Alkaline Phosphatase 63 (46-116) U/L Serum Total Protein 6.1 L (6.4-8.2) gm/dL Albumin 3.0 L (3.4-5.0) g/dL 12/29/16 Range/Units 05:54 WBC (4.0-10.5) K/mm3 RBC (4.1-5.6) M/mm3 Hgb (12.5-18.0) gm/dl Hct (42-50) % MCV (78-100) fl MCH (26-32) pg MCHC (32-36) g/dl RDW (11.5-14.0) % Plt Count (150-450) K/mm3 MPV (6-9.5) fl Segmented Neutrophils (36.-66.) % Lymphocytes (Manual) (24-44) % Monocytes (Manual) (0.0-12.0) % Eosinophils (Manual) (0.00-3.0) % Differential Comment Toxic Granulation Platelet Estimate (NORMAL) Sodium (136-145) mEq/L Potassium (3.5-5.1) mEq/L Chloride (98-107) mEq/L Carbon Dioxide (21-32) mEq/L Anion Gap (5-15) MEQ/L BUN (9-20) mg/dL Creatinine (0.55-1.30) mg/dl Estimated GFR ML/MIN Glucose (70-110) MG/DL Hemoglobin A1c 6.4 H (4.5-6.2) Lactic Acid (0.4-2.0) Calcium (8.5-10.1) mg/dL Total Bilirubin (0.2-1.0) mg/dL AST (15-37) U/L ALT (12-78) U/L Alkaline Phosphatase (46-116) U/L Serum Total Protein (6.4-8.2) gm/dL Albumin (3.4-5.0) g/dL Accuchecks Date 12/29/16 Date 12/29/16 Date 12/28/16 Time 04:11 Time 00:20 Time 20:18 Accucheck Value: 157 Accucheck Value: 166 Accucheck Value: 239 Accucheck Value: 228 Assessment/Plan (1) Sepsis Current Visit: Yes Status: Acute Qualifiers: Sepsis type: sepsis due to unspecified organism Qualified Code(s): A41.9 - Sepsis, unspecified organism Assessment & Plan: The pneumonia is the only possible nidus of infection found in ER; however since he has no cough, I am going to continue treating broadly with IV rocephin , zithromax, and vancomycin. Great improvement since yesterday. Cultures are pending. (2) RLL pneumonia Current Visit: Yes Status: Acute Qualifiers: Aspiration pneumonia type: unspecified Assessment & Plan: On IV antibiotics. Code(s): J18.1 - LOBAR PNEUMONIA, UNSPECIFIED ORGANISM (3) Diabetes mellitus Current Visit: Yes Status: Acute Qualifiers: Diabetes mellitus type: type 2 Diabetes mellitus complication status: without complication Diabetes mellitus residential insulin use: without termite helper use Qualified Code(s): E11.9 - Type 2 diabetes mellitus without complications Assessment & Plan: Pt has been borderline with blood sugars, but with sugars on admission into the 200s, would go ahead with diagnosis of diabetes. Code(s): E11.9 - TYPE 2 DIABETES MELLITUS WITHOUT COMPLICATIONS (4) Chest pain Current Visit: No Status: Acute Assessment & Plan: Will check a troponin. He sees Dr. Kramer regularly, and already has an appointmen on . If no acute changes, will just have him f/u then regarding outpatient stress test, etc. Code(s): R07.9 - CHEST PAIN, UNSPECIFIED (5) Mood disorder Current Visit: Yes Status: Acute Assessment & Plan: On depakote; level therapeutic. (6) Autosomal dominant hereditary hemochromatosis Current Visit: Yes Status: Acute Assessment & Plan: Sees Dr. Colin. Pt has a Groshong catheter. Code(s): E83.110 - HEREDITARY HEMOCHROMATOSIS (7) HTN (hypertension) Current Visit: Yes Status: Acute Qualifiers: Hypertension type: essential hypertension Qualified Code(s): I10 - Essential (primary) hypertension Assessment & Plan: Resume home meds. Code(s): I10 - ESSENTIAL (PRIMARY) HYPERTENSION
[2016-12-29] MEDS: ROCEPHIN 1 Gm-D5w 50 ml Bag** 1 G/50 ML IVPB IV SCH (10:59)
[2016-12-29] MEDS ORDERED: Ventolin Hfa MDI IH PRN (12:02)
[2016-12-29] MEDS ORDERED: Nitrostat 0.4 MG Tablet SL PRN (12:02)
[2016-12-29] MEDS ORDERED: PROVENTIL COMMON CANISTER IH PRN (12:35)
[2016-12-29] MEDS: Cymbalta 30 MG Capsule PO SCH (13:24)
[2016-12-29] MEDS: Klonopin 0.5 MG PO SCH ×3 (13:24→21:12)
[2016-12-29] MEDS: Cozaar 50 MG PO SCH (13:24)
[2016-12-29] MEDS: ECOTRIN 81 MG PO SCH (13:24)
[2016-12-29] MEDS: NORVASC 5 MG PO SCH (13:25)
[2016-12-29] MEDS: Toprol Xl 100 MG PO SCH ×2 (13:25→21:13)
[2016-12-29] MEDS: LYRICA 150MG PO SCH (13:25)
[2016-12-29] MEDS: Lasix 40 MG PO SCH (13:25)
[2016-12-29] MEDS: CLARITIN 10 MG PO SCH (13:25)
[2016-12-29] MEDS: Klor Con 10 MEQ PO SCH (13:25)
[2016-12-29] MEDS: ENOXAPARIN SODIUM SQ SCH (13:35)
[2016-12-29] MEDS ORDERED: NON-FORMULARY ITEM (Clonazepam [Klonopin] 1 MG) PO SCH (15:00)
[2016-12-29] MEDS: Zithromax 500 MG/ 250 ML NaCl Premix 500 MG/250 ML IVPB IV SCH (21:11)
[2016-12-29] MEDS: NAPROSYN 375 MG PO SCH (21:13)
[2016-12-29] MEDS: NORCO 5/325 MG PO PRN (23:30)
[2016-12-30] MEDS: Sodium Chloride 0.9% 10 ML FLUSH Syringe IV SCH ×3 (05:43→21:23)
[2016-12-30] MEDS: VANCOCIN 1 GM VIAL*** 2.5 GM in Sodium Chloride 0.9% 500 ML 500 ML IV SCH ×2 (05:43→17:28)
[2016-12-30] MEDS ORDERED: NON-FORMULARY ITEM (Aspirin [Aspirin] 81 MG) PO SCH (10:00)
[2016-12-30] MEDS ORDERED: NON-FORMULARY ITEM (Potassium Chloride [Potassium Chloride] 8 MEQ) PO SCH (10:00)
[2016-12-30] MEDS ORDERED: NON-FORMULARY ITEM (Duloxetine Hcl [Cymbalta] 60 MG) PO SCH (10:00)
[2016-12-30] MEDS ORDERED: NON-FORMULARY ITEM (Amlodipine Besylate [Amlodipine Besylate] 2.5 MG) PO SCH (10:00)
[2016-12-30] MEDS: Cozaar 50 MG PO SCH (10:23)
[2016-12-30] MEDS: Klor Con 10 MEQ PO SCH (10:23)
[2016-12-30] MEDS: Cymbalta 30 MG Capsule PO SCH (10:23)
[2016-12-30] MEDS: NORVASC 5 MG PO SCH (10:23)
[2016-12-30] MEDS: Lasix 40 MG PO SCH (10:24)
[2016-12-30] MEDS: Klonopin 0.5 MG PO SCH ×3 (10:24→21:21)
[2016-12-30] MEDS: ECOTRIN 81 MG PO SCH (10:24)
[2016-12-30] MEDS: LYRICA 150MG PO SCH (10:24)
[2016-12-30] MEDS: Toprol Xl 100 MG PO SCH ×2 (10:24→21:21)
[2016-12-30] MEDS: CLARITIN 10 MG PO SCH (10:24)
[2016-12-30] MEDS: ROCEPHIN 1 Gm-D5w 50 ml Bag** 1 G/50 ML IVPB IV SCH (10:27)
[2016-12-30] MEDS: ENOXAPARIN SODIUM SQ SCH (10:27)
[2016-12-30] MEDS: Sodium Chloride 0.9% 1000 ML 1,000 ML IV SCH (11:31)
[2016-12-30] MEDS: NovoLOG Insulin SQ PRN ×3 (12:03→21:23)
[2016-12-30 12:18] LABS: Mean Cell Volume 89.8 fl (78-100); Mean Platelet Volume 9.7 fl (6-9.5); Platelet Count 166 K/mm3 (150-450); Red Cell Distribution Width 14.6 % (11.5-14.0); White Blood Count 6.1 K/mm3 (4.0-10.5)
[2016-12-30 12:28] LABS: ANION GAP 12.6 MEQ/L (5-15); BLOOD UREA NITROGEN 9 mg/dL (9-20); CHLORIDE 102 mEq/L (98-107); Carbon Dioxide 29.7 mEq/L (21-32); Glucose 236 MG/DL (70-110); Potassium 3.9 mEq/L (3.5-5.1); SODIUM 140 mEq/L (136-145)
[2016-12-30 13:08] LABS: BAND 1 % (0.0-2.0); Eosinophil 2 % (0.00-3.0); Platelet Estimate NORMAL (NORMAL); Total Cells Counted 100; Toxic Granulation 1+
--- NOTE | 2016-12-30 13:13 | PCM.NOTE ---
Date and Time: 12/30/16 1305 Subjective Assessment: Feeling much better. Deacon po well. On 2L O2 per NC. Denies CP. Objective Exam General Appearance: no apparent distress, obese Neurologic Exam: alert, oriented x 3, cooperative Skin Exam: normal color, warm, dry Respiratory Exam: normal breath sounds, lungs clear, No crackles/rales, No rhonchi, No wheezing Cardiovascular Exam: regular rate/rhythm, normal heart sounds, No murmur Extremity Exam: No pedal edema, No swelling OBJECTIVE DATA Vital Signs: Vital Signs - 24 hr Temp Pulse Resp BP Pulse Ox 12/30/16 11:38 98.2 F 80 18 132/66 93 L 12/30/16 08:00 18 12/30/16 07:27 98.4 F 63 18 124/68 98 12/30/16 07:05 96 12/30/16 04:00 98.0 F 72 20 134/82 96 12/30/16 00:00 98.3 F 99 H 22 138/79 97 12/29/16 20:00 98.2 F 100 H 24 131/76 95 12/29/16 18:30 97 12/29/16 16:00 98.6 F 81 18 146/91 95 Oxygen-Last 24 hours O2 Percentage 2 Liters = 28% O2 Percentage 2 Liters = 28% O2 Percentage 2 Liters = 28% O2 Percentage 2 Liters = 28% Pain Assessment - Last Documented Pain Intensity 2 Pain Scale Used 0-10 Pain Scale Intake and Output: Intake & Output 12/28/16 12/29/16 12/30/16 12/31/16 11:59 11:59 11:59 11:59 Intake Total 3357 3144 Output Total 4700 4600 Balance -1343 -1456 Weight 171.14 kg Lab Results: Accuchecks Date 12/29/16 Date 12/29/16 Time 22:00 Time 16:30 Accucheck Value: 237 Accucheck Value: 144 Accucheck Value: 240 Accucheck Value: 213 Lab Results-Last 24 Hours 12/30/16 12/30/16 Range/Units 12:12 12:12 WBC 6.1 (4.0-10.5) K/mm3 RBC 4.30 (4.1-5.6) M/mm3 Hgb 12.9 (12.5-18.0) gm/dl Hct 38.6 L (42-50) % MCV 89.8 (78-100) fl MCH 30.0 (26-32) pg MCHC 33.4 (32-36) g/dl RDW 14.6 H (11.5-14.0) % Plt Count 166 (150-450) K/mm3 MPV 9.7 H (6-9.5) fl Sodium 140 (136-145) mEq/L Potassium 3.9 (3.5-5.1) mEq/L Chloride 102 (98-107) mEq/L Carbon Dioxide 29.7 (21-32) mEq/L Anion Gap 12.6 (5-15) MEQ/L BUN 9 (9-20) mg/dL Creatinine 0.84 (0.55-1.30) mg/dl Estimated GFR > 60 ML/MIN Glucose 236 H (70-110) MG/DL Calcium 8.5 (8.5-10.1) mg/dL Multi-Disciplinary Progress Notes: Multi-Disciplinary Progress Notes 12/29/16 17:06 Case Management Note by Vonda Madera DISCHARGE PLAN REVIEWED. PT NORMALLY LIVES AT HOME WITH MOTHER, SISTER, AND SEVERAL CHILDREN. NORMALLY INDEPENDENT OF ALL ADL'S. 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 PLAN TO RETURN HOME TO PRE EPISODIC LEVEL OF FUNCTION. WILL CONTINUE TO MONITOR FOR ALL D/C PLANS. Initialized on 12/29/16 17:06 - END OF NOTE Assessment/Plan (1) Sepsis Current Visit: Yes Status: Resolved Qualifiers: Sepsis type: sepsis due to unspecified organism Qualified Code(s): A41.9 - Sepsis, unspecified organism Assessment & Plan: He is doing great. Afebrile x 24 hours. However, in light of the severity of his illness at admission, will keep him at least until tomorrow. On IV zithromax and rocephin. (2) RLL pneumonia Current Visit: Yes Status: Acute Qualifiers: Aspiration pneumonia type: unspecified Assessment & Plan: On Zithromax and rocephin day #3. Still has O2 requirement, on 2L NC. Code(s): J18.1 - LOBAR PNEUMONIA, UNSPECIFIED ORGANISM (3) Diabetes mellitus Current Visit: Yes Status: Acute Qualifiers: Diabetes mellitus type: type 2 Diabetes mellitus complication status: without complication Diabetes mellitus director long term care insulin use: without director long term care use Qualified Code(s): E11.9 - Type 2 diabetes mellitus without complications Assessment & Plan: This is a new dx. A1c is 6.4 but had a blood sugar on admission of >200. Discuss meds vs diet with PCP at discharge. Code(s): E11.9 - TYPE 2 DIABETES MELLITUS WITHOUT COMPLICATIONS (4) Chest pain Current Visit: No Status: Chronic Assessment & Plan: None currently. He is seeing Dr. Kramer on January 03. Code(s): R07.9 - CHEST PAIN, UNSPECIFIED (5) Mood disorder Current Visit: Yes Status: Chronic Assessment & Plan: stable. on depakote (6) Autosomal dominant hereditary hemochromatosis Current Visit: Yes Status: Chronic Code(s): E83.110 - HEREDITARY HEMOCHROMATOSIS (7) HTN (hypertension) Current Visit: Yes Status: Chronic Qualifiers: Hypertension type: essential hypertension Qualified Code(s): I10 - Essential (primary) hypertension Assessment & Plan: doing well. home meds have been resumed. Code(s): I10 - ESSENTIAL (PRIMARY) HYPERTENSION
[2016-12-30] MEDS: NORCO 5/325 MG PO PRN ×2 (15:32→21:34)
[2016-12-30] MEDS: Zithromax 500 MG/ 250 ML NaCl Premix 500 MG/250 ML IVPB IV SCH (21:20)
[2016-12-30] MEDS: NAPROSYN 375 MG PO SCH (21:23)
[2016-12-31] MEDS: Sodium Chloride 0.9% 1000 ML 1,000 ML IV SCH (01:51)
[2016-12-31] MEDS: VANCOCIN 1 GM VIAL*** 2.5 GM in Sodium Chloride 0.9% 500 ML 500 ML IV SCH (05:09)
[2016-12-31] MEDS: Sodium Chloride 0.9% 10 ML FLUSH Syringe IV SCH (05:22)
--- NOTE | 2016-12-31 08:59 | PCM.DS ---
Discharge Summary Date of Admission: 12/28/16 18:57 Admitting Physician: TIGRE ROCHA Primary Care Provider: TIGRE ROCHA Allergies Allergies No Known Drug Allergies Allergy (Verified 10/17/16 18:01) Hospital Summary - Hospital Course Hospital Course: Pt admitted through the ER feeling very ill x 1 day, found to be septic with pneumonia. Treated with rocephin and zithromax IV (zithromax x 3d, rocephin x 4d). He felt much better after the first day, but remained on oxygen per NC for 3 days. Currently off oxygen and afebrile. Will check labs this morning, d/ c fluids, if continues to do well off O2 will d/c home this afternoon. He has a new dx of DM II, had blood sugar over 200 on admission and a1c of 6.4. Will start on metformin at home. - Vitals & Intake/Output Vital Signs: Vital Signs Temperature 97.5 F 12/31/16 07:41 Pulse Rate 84 12/31/16 07:41 Respiratory Rate 20 12/31/16 08:00 Blood Pressure 114/61 12/31/16 07:41 O2 Sat by Pulse Oximetry 91 L 12/31/16 07:41 Oxygen-Last Documented O2 Percentage 2 Liters = 28% Intake & Output: Intake & Output 12/28/16 12/29/16 12/30/16 12/31/16 11:59 11:59 11:59 11:59 Intake Total 3357 3144 5437 Output Total 4700 5590 7686 Balance -2865 -7349 -3641 Weight 171.14 kg - Lab Result Diagrams: 12/30/16 12:12 12/30/16 12:12 Lab Results-Last 24 Hrs: Accuchecks Date 12/31/16 Date 12/30/16 Time 07:30 Time 21:00 Accucheck Value: 126 Accucheck Value: 286 Accucheck Value: 216 Accucheck Value: 237 Lab Results-Last 24 Hours 12/30/16 12/30/16 12/30/16 Range/Units 12:12 12:12 17:03 WBC 6.1 (4.0-10.5) K/mm3 RBC 4.30 (4.1-5.6) M/mm3 Hgb 12.9 (12.5-18.0) gm/dl Hct 38.6 L (42-50) % MCV 89.8 (78-100) fl MCH 30.0 (26-32) pg MCHC 33.4 (32-36) g/dl RDW 14.6 H (11.5-14.0) % Plt Count 166 (150-450) K/mm3 MPV 9.7 H (6-9.5) fl Segmented Neutrophils 59 (36.-66.) % Band Neutrophils 1 (0.0-2.0) % Lymphocytes (Manual) 36 (24-44) % Monocytes (Manual) 2 (0.0-12.0) % Eosinophils (Manual) 2 (0.00-3.0) % Differential Comment NORMAL Toxic Granulation 1+ Platelet Estimate NORMAL (NORMAL) Sodium 140 (136-145) mEq/L Potassium 3.9 (3.5-5.1) mEq/L Chloride 102 (98-107) mEq/L Carbon Dioxide 29.7 (21-32) mEq/L Anion Gap 12.6 (5-15) MEQ/L BUN 9 (9-20) mg/dL Creatinine 0.84 (0.55-1.30) mg/dl Estimated GFR > 60 ML/MIN Glucose 236 H (70-110) MG/DL Calcium 8.5 (8.5-10.1) mg/dL Vancomycin Trough 7.4 L (10-20) UG/ML Micro Results-Entire Visit: Accuchecks Date 12/31/16 Date 12/30/16 Time 07:30 Time 21:00 Accucheck Value: 126 Accucheck Value: 286 Accucheck Value: 216 Accucheck Value: 237 - Procedures and Test Procedures and Tests throughout Hospitalization: Therapy Orders & Screens 12/28/16 19:03 Oxygen NASAL CANNULA 2 lpm Comment: Discharge Exam General Appearance: no apparent distress, obese Neurologic Exam: alert, oriented x 3, cooperative Skin Exam: normal color, warm, dry Respiratory Exam: normal breath sounds, lungs clear, No crackles/rales, No rhonchi, No wheezing Cardiovascular Exam: regular rate/rhythm, normal heart sounds, No murmur Gastrointestinal/Abdomen Exam: soft, normal bowel sounds, No tenderness Extremity Exam: No pedal edema, No swelling Final Diagnosis/Problem List - Final Discharge Diagnosis/Problem (1) RLL pneumonia Current Visit: Yes Status: Acute Assessment & Plan: Home on po augmentin. F/u wtih Dr. Rocha in 1 wk. (2) Diabetes mellitus Current Visit: Yes Status: Acute Assessment & Plan: New diagnosis. Home on metformin. Discussed dietary changes (he also has info from dietary). (3) Chest pain Current Visit: No Status: Chronic Assessment & Plan: Seeing DR. Kramer in 3d. (4) Mood disorder Current Visit: Yes Status: Chronic Assessment & Plan: stable. (5) Autosomal dominant hereditary hemochromatosis Current Visit: Yes Status: Chronic (6) HTN (hypertension) Current Visit: Yes Status: Chronic Assessment & Plan: Stable on home meds. - Discharge Disposition: Home, Self-Care Condition: Stable Prescriptions: New Amoxicillin/Potassium Clav [Augmentin 875-125 Tablet] 875 mg PO BID #20 tablet Metformin HCl 500 mg [Glucophage 500 MG] 500 mg PO BID #30 tablet Continue Duloxetine HCl [Cymbalta] 60 mg PO DAILY Divalproex Sodium [Depakote] 1,500 mg PO HS Clonazepam [Klonopin] 1 mg PO TID Pregabalin [Lyrica 150Mg] 150 mg PO QAM Losartan Potassium [Cozaar] 100 mg PO DAILY Loratadine 10 mg [Claritin 10 mg] 10 mg PO DAILY Aspirin 81 mg PO DAILY Albuterol Sulfate [Proair Hfa] 2 puff IH Q4HPRN PRN PRN Reason: breathing Nitroglycerin 0.4 mg Tablet [Nitrostat 0.4 MG Tablet] 0.4 mg SL Q5MIN PRN MR X 3 PRN #30 bottle PRN Reason: Chest Pain Amlodipine Besylate 2.5 mg PO DAILY Furosemide 40 mg [Lasix 40 MG] 40 mg PO DAILY Metoprolol Succinate 100 mg [Toprol Xl 100 MG] 100 mg PO BID Potassium Chloride 8 meq PO DAILY Naproxen 375 mg [Naprosyn 375 mg] 375 mg PO QHS Follow up with: TIGRE ROCHA [Primary Care Provider] - Forms: Patient Portal Information
[2016-12-31] MEDS: LYRICA 150MG PO SCH (09:44)
[2016-12-31] MEDS: Klonopin 0.5 MG PO SCH (09:44)
[2016-12-31] MEDS: ECOTRIN 81 MG PO SCH (09:45)
[2016-12-31] MEDS: CLARITIN 10 MG PO SCH (09:45)
[2016-12-31] MEDS: Cozaar 50 MG PO SCH (09:45)
[2016-12-31] MEDS: Klor Con 10 MEQ PO SCH (09:45)
[2016-12-31] MEDS: Cymbalta 30 MG Capsule PO SCH (09:45)
[2016-12-31] MEDS: ENOXAPARIN SODIUM SQ SCH (09:45)
[2016-12-31] MEDS: ROCEPHIN 1 Gm-D5w 50 ml Bag** 1 G/50 ML IVPB IV SCH (09:45)
[2016-12-31] MEDS: Toprol Xl 100 MG PO SCH (09:45)
[2016-12-31] MEDS: NORVASC 5 MG PO SCH (09:45)
[2016-12-31] MEDS: Lasix 40 MG PO SCH (09:45)
[2016-12-31 09:51] LABS: Mean Cell Volume 89.3 fl (78-100); Mean Platelet Volume 10.5 fl (6-9.5); Platelet Count 166 K/mm3 (150-450); Red Blood Count 4.03 M/mm3 (4.1-5.6); Red Cell Distribution Width 14.3 % (11.5-14.0)
[2016-12-31 09:55] LABS: ANION GAP 14.7 MEQ/L (5-15); BLOOD UREA NITROGEN 9 mg/dL (9-20); CHLORIDE 102 mEq/L (98-107); Glucose 236 MG/DL (70-110); Potassium 4.3 mEq/L (3.5-5.1); SODIUM 140 mEq/L (136-145)
[2016-12-31] MEDS: NORCO 5/325 MG PO PRN (11:17)
[2016-12-31] MEDS: NovoLOG Insulin SQ PRN (12:04)
[2016-12-31 13:35] VITALS: BP 128/68; PULSE 82; O2SAT 90
== END 2016-12-31 12:00 | disposition home or self-care (01) | DRG 193 ==
LOC: ED 15:50 → ICU 18:57 → MED SURG 12-29 12:45
PROVIDERS: ADMIT Family Medicine; ATTEND Family Medicine
DX: J18.1 Lobar pneumonia, unspecified organism (principal); A41.9 Sepsis, unspecified organism; E11.9 Type 2 diabetes mellitus without complications; Z79.4 Long term (current) use of insulin; R07.9 Chest pain, unspecified; F39 Unspecified mood [affective] disorder; E83.110 Hereditary hemochromatosis; I10 Essential (primary) hypertension; F41.9 Anxiety disorder, unspecified; F31.9 Bipolar disorder, unspecified
CPT/HCPCS: 36000; 36415; 51702; 71010; 80048; 80053; 80164; 80202; 81000; 82805; 82962; 83036; 83605; 84484; 85025; 85027; 85610; 85730; 87040; 87070; 87086; 87430; 87631; 90732; 93005; 93041; 94760; 94770; 96360; 96361; 96365; 96367; 99291; 99292; J0456; J0696; J1650; J3370; A9270-GY

== ENCOUNTER 2017-02-08 20:56 | Emergency (ER) | payer OTHER ==
[2017-02-08] MEDS ORDERED: Sodium Chloride 0.9% 1000 ML 2,000 ML IV STA (21:09)
[2017-02-08] MEDS ORDERED: Zofran 4 MG/2 ML VIAL IV ONE (21:09)
[2017-02-08] MEDS ORDERED: Sodium Chloride 0.9% 1000 ML 1,000 ML ONE ×2 (21:15→21:43)
[2017-02-08] MEDS ORDERED: Zofran 4 MG/2 ML VIAL ONE (21:15)
[2017-02-08 21:23] LABS: Lactic Acid 2.7 (0.4-2.0)
--- NOTE | 2017-02-08 21:24 | ERPHSYRPT ---
- History of Present Illness Time Seen by Provider: 02/08/17 21:22 Historian: patient, family Exam Limitations: no limitations Patient Subjective Stated Complaint: pt states he has been vomiting and having diarrhea since last night and hasnt been able to eat much today or yesterday. and c/o abd pain radiating into chest. states vomiting or burping decreases discomfort and has a very bad odor. Triage Nursing Assessment: pt awake and alert, answers questions approp. pt diaphoretic, skinn warm. pt from wheelchair to stretcher with minimal assist of 2, unsteady. respiations rapid, nonlabored. abd nontender, bowel sounds presrnt. no emesis or diarrhea at this time. Physician History: pt states he has been vomiting and having diarrhea since last night and hasnt been able to eat much today or yesterday. and c/o abd pain radiating into chest. states vomiting or burping decreases discomfort and has a very bad odor. Timing/Duration: yesterday Activities at Onset: none Abdominal Pain Onset Location: generalized abdomen Associated Symptoms: diaphoresis, loss of appetite, nausea, vomiting, weakness Previous symptoms: same symptoms as today Allergies/Adverse Reactions: No Known Drug Allergies Allergy (Verified 02/08/17 21:19) Home Medications: Albuterol Sulfate [Proair Hfa] 2 puff IH Q4HPRN PRN 10/17/16 [History] Aspirin 81 mg PO DAILY 10/17/16 [History] Clonazepam [Klonopin] 1 mg PO TID 10/17/16 [History] Divalproex Sodium [Depakote] 1,500 mg PO HS 10/17/16 [History] Duloxetine HCl [Cymbalta] 120 mg PO DAILY 10/17/16 [History] Loratadine 10 mg [Claritin 10 mg] 10 mg PO DAILY 10/17/16 [History] Losartan Potassium [Cozaar] 100 mg PO BID 10/17/16 [History] Amlodipine Besylate 5 mg PO DAILY 12/28/16 [History] Furosemide 40 mg [Lasix 40 MG] 40 mg PO DAILY 12/28/16 [History] Metoprolol Succinate 100 mg [Toprol Xl 100 MG] 100 mg PO BID 12/28/16 [ History] Naproxen 375 mg [Naprosyn 375 mg] 375 mg PO BID 12/28/16 [History] Potassium Chloride 8 meq PO DAILY 12/28/16 [History] Sitagliptin Phosphate [Januvia] 25 mg PO DAILY 02/08/17 [History] Hx Tetanus, Diphtheria Vaccination/Date Given: Yes Hx Influenza Vaccination/Date Given: No Hx Pneumococcal Vaccination/Date Given: No Immunizations Up to Date: Yes - Review of Systems Constitutional: Lethargy, Malaise, Weakness, No Fever, No Chills Eyes: No Symptoms Ears, Nose, & Throat: No Symptoms Respiratory: No Cough, No Dyspnea Cardiac: No Chest Pain, No Edema, No Syncope Abdominal/Gastrointestinal: Abdominal Pain, Nausea, Vomiting, Diarrhea Genitourinary Symptoms: No Dysuria Musculoskeletal: No Back Pain, No Neck Pain Skin: No Rash Neurological: No Dizziness, No Focal Weakness, No Sensory Changes Psychological: No Symptoms Endocrine: No Symptoms All Other Systems: Reviewed and Negative - Past Medical History Pertinent Past Medical History: Yes Neurological History: No Pertinent History ENT History: No Pertinent History Cardiac History: Hypertension Respiratory History: No Pertinent History Endocrine Medical History: Diabetes Type II Musculoskeletal History: No Pertinent History GI Medical History: Other History: No Pertinent History Psycho-Social History: Anxiety, Bipolar, Depression Male Reproductive Disorders: No Pertinent History Other Medical History: hemochromotosis, - Past Surgical History Past Surgical History: Yes Neuro Surgical History: No Pertinent History Cardiac: No Pertinent History Respiratory: No Pertinent History Gastrointestinal: Cholecystectomy, Hernia Repair Genitourinary: No Pertinent History Musculoskeletal: Other Male Surgical History: No Pertinent History Other Surgical History: central line Groshong CV catheterx8 - Social History Smoking Status: Never smoker Exposure to second hand smoke: No Drug Use: none Patient Lives Alone: No - Nursing Vital Signs Nursing Vital Signs: Initial Vital Signs Temperature 97.2 F 02/08/17 21:02 Pulse Rate 80 02/08/17 21:02 Respiratory Rate 22 02/08/17 21:02 Blood Pressure 84/48 02/08/17 21:02 O2 Sat by Pulse Oximetry 99 02/08/17 21:02 Pain Scale Pain Intensity 10 - Physical Exam General Appearance: no apparent distress, alert Eye Exam: PERRL/EOMI, eyes nml inspection Ears, Nose, Throat Exam: normal ENT inspection, pharynx normal, moist mucous membranes Neck Exam: normal inspection, non-tender, supple, full range of motion Respiratory Exam: normal breath sounds, lungs clear, No respiratory distress Cardiovascular Exam: regular rate/rhythm, normal heart sounds Gastrointestinal/Abdomen Exam: soft, No tenderness, No mass Back Exam: normal inspection, normal range of motion, No CVA tenderness, No vertebral tenderness Extremity Exam: normal inspection, normal range of motion, pelvis stable Neurologic Exam: alert, oriented x 3, cooperative, normal mood/affect, nml cerebellar function, sensation nml, No motor deficits Skin Exam: normal color, warm, dry SpO2: 99 Oxygen Delivery: Room Air - Course Nursing assessment & vital signs reviewed: Yes Ordered Tests: Active Orders 24 hr Category Date Time Status Clean Catch Urine Specimen STAT Care 02/08/17 22:49 Active IV Insertion STAT Care 02/08/17 21:21 Active ABDOMEN AND PELVIS W/0 CONTRAS [CT] Stat Exams 02/08/17 22:13 Taken OBSTR/ACUTE ABDOMEN SERIES Stat Exams 02/08/17 21:10 Taken AMYLASE Stat Lab 02/08/17 21:00 Completed BLOOD CULTURE Stat Lab 02/08/17 21:50 Received CBC W DIFF Stat Lab 02/08/17 21:09 Completed CMP Stat Lab 02/08/17 21:00 Completed CULTURE,URINE Stat Lab 02/08/17 23:00 Received LIPASE Stat Lab 02/08/17 21:00 Completed Lactic Acid Stat Lab 02/08/17 21:15 Results Manual Differential NC Stat Lab 02/08/17 21:09 Completed TROPONIN Stat Lab 02/08/17 21:00 Completed UA Stat Lab 02/08/17 23:00 Completed Urine Triage Profile Stat Lab 02/08/17 23:00 Received Medication Summary Generic Name Dose Route Start Last Admin Trade Name Freq PRN Reason Stop Dose Admin Sodium Chloride 2,000 mls @ 999 mls/hr 02/08/17 21:09 02/08/17 21:18 Sodium Chloride 0.9% 1000 Ml IV 02/08/17 23:09 999 mls/hr .Q2H1M STA Administration Discontinued Medications Generic Name Dose Route Start Last Admin Trade Name Freq PRN Reason Stop Dose Admin Fentanyl Citrate 50 mcg 02/08/17 22:17 02/08/17 22:21 Sublimaze 100 Mcg/2 Ml IV 02/08/17 22:18 50 mcg STAT ONE Administration Fentanyl Citrate Confirm 02/08/17 22:20 Sublimaze 100 Mcg/2 Ml Administered 02/08/17 22:21 Dose 100 mcg .ROUTE .STK-MED ONE Sodium Chloride Confirm 02/08/17 21:15 Sodium Chloride 0.9% 1000 Ml Administered 02/08/17 21:16 Dose 1,000 mls @ ud .ROUTE .STK-MED ONE Sodium Chloride Confirm 02/08/17 21:43 Sodium Chloride 0.9% 1000 Ml Administered 02/08/17 21:44 Dose 1,000 mls @ ud .ROUTE .STK-MED ONE Ondansetron HCl 4 mg 02/08/17 21:09 02/08/17 21:18 Zofran 4 Mg/2 Ml Vial IV 02/08/17 21:10 4 mg STAT ONE Administration Ondansetron HCl Confirm 02/08/17 21:15 Zofran 4 Mg/2 Ml Vial Administered 02/08/17 21:16 Dose 4 mg .ROUTE .STK-MED ONE Pantoprazole Sodium 40 mg 02/08/17 22:12 02/08/17 22:17 Protonix 40 Mg Iv IV 02/08/17 22:13 40 mg STAT ONE Administration Pantoprazole Sodium Confirm 02/08/17 22:15 Protonix 40 Mg Iv Administered 02/08/17 22:16 Dose 40 mg IV .STK-MED ONE Lab/Rad Data: Laboratory Result Diagrams 02/08/17 21:09 02/08/17 21:00 Laboratory Results 02/08/17 02/08/17 02/08/17 Range/Units 23:00 21:15 21:09 WBC 9.5 (4.0-10.5) K/mm3 RBC 5.45 (4.1-5.6) M/mm3 Hgb 16.1 (12.5-18.0) gm/dl Hct 47.0 (42-50) % MCV 86.2 (78-100) fl MCH 29.5 (26-32) pg MCHC 34.3 (32-36) g/dl RDW 14.1 H (11.5-14.0) % Plt Count 293 (150-450) K/mm3 MPV 10.8 H (6-9.5) fl Segmented Neutrophils 69 H (36.-66.) % Band Neutrophils 4 H (0.0-2.0) % Lymphocytes (Manual) 17 L (24-44) % Monocytes (Manual) 9 (0.0-12.0) % Eosinophils (Manual) 1 (0.00-3.0) % Differential Comment NORMAL Platelet Estimate NORMAL (NORMAL) Sodium (136-145) mEq/L Potassium (3.5-5.1) mEq/L Chloride (98-107) mEq/L Carbon Dioxide (21-32) mEq/L Anion Gap (5-15) MEQ/L BUN (9-20) mg/dL Creatinine (0.55-1.30) mg/dl Estimated GFR ML/MIN Glucose (70-110) MG/DL Lactic Acid 2.7 H (0.4-2.0) Calcium (8.5-10.1) mg/dL Total Bilirubin (0.2-1.0) mg/dL AST (15-37) U/L ALT (12-78) U/L Alkaline Phosphatase (46-116) U/L Troponin I (0.000-0.056) ng/ml Serum Total Protein (6.4-8.2) gm/dL Albumin (3.4-5.0) g/dL Amylase (25-115) U/L Lipase (73-393) U/L Ur Collection Type VOID Urine Color YELLOW (YELLOW) Urine Appearance CLEAR (CLEAR) Urine pH 5.0 (5-6) Ur Specific [place] 1.020 (1.005-1.025) Urine Protein NEGATIVE (Negative) Urine Ketones MODERATE (NEGATIVE) Urine Blood NEGATIVE (0-5) Godfrey/ul Urine Nitrite NEGATIVE (NEGATIVE) Urine Bilirubin NEGATIVE (NEGATIVE) Urine Urobilinogen NORMAL (0-1) mg/dL Ur Leukocyte Esterase NEGATIVE (NEGATIVE) Urine Glucose NEGATIVE (NEGATIVE) mg/dL Specimen Received 02/08/17 2300 02/08/17 02/08/17 Range/Units 21:00 21:00 WBC (4.0-10.5) K/mm3 RBC (4.1-5.6) M/mm3 Hgb (12.5-18.0) gm/dl Hct (42-50) % MCV (78-100) fl MCH (26-32) pg MCHC (32-36) g/dl RDW (11.5-14.0) % Plt Count (150-450) K/mm3 MPV (6-9.5) fl Segmented Neutrophils (36.-66.) % Band Neutrophils (0.0-2.0) % Lymphocytes (Manual) (24-44) % Monocytes (Manual) (0.0-12.0) % Eosinophils (Manual) (0.00-3.0) % Differential Comment Platelet Estimate (NORMAL) Sodium 137 (136-145) mEq/L Potassium 3.7 (3.5-5.1) mEq/L Chloride 102 (98-107) mEq/L Carbon Dioxide 23.3 (21-32) mEq/L Anion Gap 15.8 H (5-15) MEQ/L BUN 19 (9-20) mg/dL Creatinine 1.02 (0.55-1.30) mg/dl Estimated GFR > 60 ML/MIN Glucose 174 H (70-110) MG/DL Lactic Acid (0.4-2.0) Calcium 8.4 L (8.5-10.1) mg/dL Total Bilirubin 0.40 (0.2-1.0) mg/dL AST 45 H (15-37) U/L ALT 63 (12-78) U/L Alkaline Phosphatase 90 (46-116) U/L Troponin I < 0.017 (0.000-0.056) ng/ml Serum Total Protein 6.4 (6.4-8.2) gm/dL Albumin 3.5 (3.4-5.0) g/dL Amylase 20 L (25-115) U/L Lipase 153 (73-393) U/L Ur Collection Type Urine Color (YELLOW) Urine Appearance (CLEAR) Urine pH (5-6) Ur Specific [place] (1.005-1.025) Urine Protein (Negative) Urine Ketones (NEGATIVE) Urine Blood (0-5) Godfrey/ul Urine Nitrite (NEGATIVE) Urine Bilirubin (NEGATIVE) Urine Urobilinogen (0-1) mg/dL Ur Leukocyte Esterase (NEGATIVE) Urine Glucose (NEGATIVE) mg/dL Specimen Received - Progress Progress: improved Progress Note: 02/08/17 23:07 Patient all labs were unremarkable except for lactic acid, which was 2.7. Patient was given [address] abdomen and pelvis was done without contrast which was negative. Patient was given IV Protonix and IV fentanyl, which did relieve patient's abdominal pain and patient was much more comfortable and totally abdominal pain. Counseled pt/family regarding: lab results, diagnosis, need for follow-up, rad results - Departure Time of Disposition: 23:09 Departure Disposition: Home Clinical Impression: Abdominal pain Qualifiers: Abdominal location: generalized Qualified Code(s): R10.84 - Generalized abdominal pain Condition: Stable Critical Care Time: Yes Critical Care Time(excluding separately billable procedures): 30-74 minutes Referrals: TIGRE HARDIN [Primary Care Provider] - Instructions: Abdominal Pain-Adult Additional Instructions: ABDOMINAL PAIN 1. There are several different causes for abdominal pain, some of which may not be able to be identified on initial examination. 2. The important thing to remember is that bodily functions can change in a short period of time. If you notice any of the following symptoms, return to the emergency department or consult your doctor immediately: A. Worsening pain or no improvement in the next 12 hours. B. Increasing, severe abdominal pain C. Blood in stool D. Black stools E. Persistent vomiting F. Fever or chills or other symptoms
[2017-02-08 21:26] LABS: Mean Cell Volume 86.2 fl (78-100); Mean Corpuscular Hemoglobin 29.5 pg (26-32); Mean Platelet Volume 10.8 fl (6-9.5); Platelet Count 293 K/mm3 (150-450); Red Blood Count 5.45 M/mm3 (4.1-5.6); Red Cell Distribution Width 14.1 % (11.5-14.0); White Blood Count 9.5 K/mm3 (4.0-10.5)
[2017-02-08 21:53] LABS: ALBUMIN 3.5 g/dL (3.4-5.0); ALKALINE PHOSPHATASE 90 U/L (46-116); ANION GAP 15.8 MEQ/L (5-15); BLOOD UREA NITROGEN 19 mg/dL (9-20); CHLORIDE 102 mEq/L (98-107); Carbon Dioxide 23.3 mEq/L (21-32); Glucose 174 MG/DL (70-110); LIPASE 153 U/L (73-393); Potassium 3.7 mEq/L (3.5-5.1); SGOT/AST 45 U/L (15-37); SGPT/ALT 63 U/L (12-78); SODIUM 137 mEq/L (136-145); Total Protein 6.4 gm/dL (6.4-8.2)
[2017-02-08 22:03] LABS: BAND 4 % (0.0-2.0); Eosinophil 1 % (0.00-3.0); Platelet Estimate NORMAL (NORMAL); Total Cells Counted 100
[2017-02-08] MEDS ORDERED: PROTONIX 40 MG IV IV ONE ×2 (22:12→22:15)
[2017-02-08] MEDS ORDERED: SUBLIMAZE 100 MCG/2 ML IV ONE (22:17)
[2017-02-08] MEDS ORDERED: SUBLIMAZE 100 MCG/2 ML ONE (22:20)
[2017-02-08 23:05] LABS: Bilirubin NEGATIVE (NEGATIVE); Blood NEGATIVE Ery/ul (0-5); COMPLETE URINE MICROSCOPIC? NO; Collection Type VOID; Glucose NEGATIVE (NEGATIVE); Leukocyte Esterase NEGATIVE (NEGATIVE)
[2017-02-08 23:39] VITALS: BP 133/77; PULSE 88; O2SAT 96
--- NOTE | 2017-02-09 08:09 | XRAY ---
Indication: Abdomen pain, nausea, vomiting, diarrhea for one week. Multiple contiguous axial images obtained through the abdomen and pelvis without contrast as ordered. Comparison: January 28, 2015. Lung bases are clear. Heart is not enlarged. Stomach is distended with food. Noncontrasted stomach and bowel loops appear nonobstructed. Normal appendix. No free fluid/air. There are now scattered subcentimeter mesenteric nodes, possible adenitis. Again incidental fatty liver, 14 cm splenomegaly, ventral hernia repair, and cholecystectomy. No free fluid/air. Remaining liver, pancreas, spleen, adrenal glands, kidneys, ureters, bladder, and aorta appear unremarkable for noncontrasted exam. Osseous structures intact. There is now small fatty umbilical hernia not previously included in the [id number]. Impression: 1. Scattered small mesenteric nodes, possible adenitis. 2. Incidental fatty liver, splenomegaly, and fatty umbilical hernia. 3. No acute intra-abdominal/pelvic abnormalities on this noncontrast exam. Comment: Preliminary interpretation was made by [facility] [place]. Mesenteric nodes not reported and not felt to be critical finding. CTDI 28.13
--- NOTE | 2017-02-09 08:14 | XRAY ---
Indication: Abdominal pain, nausea, vomiting, diarrhea. Comparison: Chest exam December 28, 2016. 2 views of the abdomen demonstrates nonspecific nonobstructed bowel gas pattern with mild food distended stomach and mid hernia mesh graft. Solid organs and osseous structures unremarkable. [place] PA chest demonstrates normal heart, lungs, bony thorax with incidental left-sided Groshong catheter. Impression: Negative abdomen. Nonacute one view chest.
== END 2017-02-08 23:42 | disposition home or self-care (01) ==
LOC: ED 20:56
DX: R10.84 Generalized abdominal pain (principal); R11.2 Nausea with vomiting, unspecified; R19.7 Diarrhea, unspecified; R61 Generalized hyperhidrosis; R53.1 Weakness; R63.0 Anorexia; I10 Essential (primary) hypertension; E11.9 Type 2 diabetes mellitus without complications
CPT/HCPCS: 36415; 74022; 74176; 80053; 80307; 81002; 82150; 83605; 83690; 84484; 85025; 87040; 87086; 96360; 96361; 96374; 96375; 99284; J1642; J2405; J3010

== ENCOUNTER 2017-02-09 14:08 | Emergency (ER) | payer OTHER ==
[2017-02-09] MEDS ORDERED: Sodium Chloride 0.9% 1000 ML 1,000 ML IV STA (14:22)
[2017-02-09] MEDS ORDERED: Sodium Chloride 0.9% 1000 ML 1,000 ML ONE (14:27)
--- NOTE | 2017-02-09 14:27 | ERPHSYRPT ---
- History of Present Illness Time Seen by Provider: 02/09/17 14:22 Source: patient, family Exam Limitations: no limitations Patient Subjective Stated Complaint: pt in ER last pm and blood culture from port revealed gram positive cocci. Pt called to come back to ERfor furthur workup. pt states he is feeling better. denies any fever today. Triage Nursing Assessment: pt pink, warm, dry. pt afebrile. Physician History: The patient is a 31-year-old male with family who comes in because of an abnormal lab result at his visit yesterday to the emergency room. He came in yesterday because of abdominal pain and not feeling well. He has a port and the port was accessed twice for doing blood cultures. The preliminary report of the Gram stain is a 2 port draws showed gram-positive cocci in clusters. He states today that he is feeling much better. He has no pain. And is able to get up and move around. The 2 new blood cultures will be drawn from 2 different venous sites today and not the port. His past medical history is significant for morbid obesity, hypertension, diabetes, and hemachromatosis. Timing/Duration: today Modifying Factors: Improves With: nothing Associated Symptoms: denies symptoms Allergies/Adverse Reactions: No Known Drug Allergies Allergy (Verified 02/09/17 14:19) Home Medications: Albuterol Sulfate [Proair Hfa] 2 puff IH Q4HPRN PRN 10/17/16 [History] Aspirin 81 mg PO DAILY 10/17/16 [History] Clonazepam [Klonopin] 1 mg PO TID 10/17/16 [History] Divalproex Sodium [Depakote] 1,500 mg PO HS 10/17/16 [History] Duloxetine HCl [Cymbalta] 120 mg PO DAILY 10/17/16 [History] Loratadine 10 mg [Claritin 10 mg] 10 mg PO DAILY 10/17/16 [History] Losartan Potassium [Cozaar] 100 mg PO BID 10/17/16 [History] Amlodipine Besylate 5 mg PO DAILY 12/28/16 [History] Furosemide 40 mg [Lasix 40 MG] 40 mg PO DAILY 12/28/16 [History] Metoprolol Succinate 100 mg [Toprol Xl 100 MG] 100 mg PO BID 12/28/16 [ History] Naproxen 375 mg [Naprosyn 375 mg] 375 mg PO BID 12/28/16 [History] Potassium Chloride 8 meq PO DAILY 12/28/16 [History] Sitagliptin Phosphate [Januvia] 25 mg PO DAILY 02/08/17 [History] Hx Tetanus, Diphtheria Vaccination/Date Given: Yes (unknown) Hx Influenza Vaccination/Date Given: Yes Hx Pneumococcal Vaccination/Date Given: Yes Immunizations Up to Date: Yes - Review of Systems Constitutional: No Fever, No Chills Eyes: No Symptoms Ears, Nose, & Throat: No Symptoms Respiratory: No Cough, No Dyspnea Cardiac: No Chest Pain, No Edema, No Syncope Abdominal/Gastrointestinal: No Abdominal Pain, No Nausea, No Vomiting, No Diarrhea Genitourinary Symptoms: No Dysuria Musculoskeletal: No Back Pain, No Neck Pain Skin: No Rash Neurological: No Dizziness, No Focal Weakness, No Sensory Changes Psychological: No Symptoms Endocrine: No Symptoms Hematologic/Lymphatic: No Symptoms Immunological/Allergic: No Symptoms All Other Systems: Reviewed and Negative - Past Medical History Pertinent Past Medical History: Yes Neurological History: No Pertinent History ENT History: No Pertinent History Cardiac History: Hypertension Respiratory History: No Pertinent History Endocrine Medical History: Diabetes Type II Musculoskeletal History: No Pertinent History GI Medical History: Other History: No Pertinent History Psycho-Social History: Anxiety, Bipolar, Depression Male Reproductive Disorders: No Pertinent History Other Medical History: hemochromotosis, - Past Surgical History Past Surgical History: Yes Neuro Surgical History: No Pertinent History Cardiac: No Pertinent History Respiratory: No Pertinent History Gastrointestinal: Cholecystectomy, Hernia Repair Genitourinary: No Pertinent History Musculoskeletal: Other Male Surgical History: No Pertinent History Other Surgical History: central line Groshong CV catheterx8 - Social History Smoking Status: Never smoker Exposure to second hand smoke: No Drug Use: none Patient Lives Alone: No - Nursing Vital Signs Nursing Vital Signs: Initial Vital Signs Temperature 97.5 F 02/09/17 14:14 Pulse Rate 97 H 02/09/17 14:14 Respiratory Rate 22 02/09/17 14:14 Blood Pressure 158/92 02/09/17 14:14 O2 Sat by Pulse Oximetry 95 02/09/17 14:14 Pain Scale Pain Intensity 0 - Physical Exam General Appearance: no apparent distress, alert Eye Exam: PERRL/EOMI, eyes nml inspection Ears, Nose, Throat Exam: normal ENT inspection, TMs normal, pharynx normal, moist mucous membranes Neck Exam: normal inspection, non-tender, supple, full range of motion Respiratory Exam: normal breath sounds, lungs clear, No respiratory distress Cardiovascular Exam: regular rate/rhythm, normal heart sounds, normal peripheral pulses Gastrointestinal/Abdomen Exam: soft, normal bowel sounds, No tenderness, No mass Rectal Exam: not done Back Exam: normal inspection, normal range of motion, No CVA tenderness, No vertebral tenderness Extremity Exam: normal inspection, normal range of motion, pelvis stable Neurologic Exam: alert, oriented x 3, cooperative, normal mood/affect, nml cerebellar function, nml station & gait, sensation nml, No motor deficits Skin Exam: normal color, warm, dry, No rash Lymphatic Exam: No adenopathy SpO2 Interpretation: normal SpO2: 95 Oxygen Delivery: Room Air Ordered Tests: Active Orders 24 hr Category Date Time Status IV Insertion STAT Care 02/09/17 14:22 Active BLOOD CULTURE Stat Lab 02/09/17 14:25 Received BMP Stat Lab 02/09/17 14:22 Completed CBC W DIFF Stat Lab 02/09/17 14:22 Completed Lactic Acid Stat Lab 02/09/17 14:22 Completed Manual Differential NC Stat Lab 02/09/17 14:22 Completed Medication Summary Generic Name Dose Route Start Last Admin Trade Name Freq PRN Reason Stop Dose Admin Sodium Chloride 1,000 mls @ 999 mls/hr 02/09/17 14:22 02/09/17 14:28 Sodium Chloride 0.9% 1000 Ml IV 02/09/17 15:22 999 mls/hr .Q1H1M STA Administration Discontinued Medications Generic Name Dose Route Start Last Admin Trade Name Freq PRN Reason Stop Dose Admin Sodium Chloride Confirm 02/09/17 14:27 Sodium Chloride 0.9% 1000 Ml Administered 02/09/17 14:28 Dose 1,000 mls @ ud .ROUTE .K-MED ONE Lab/Rad Data: Laboratory Result Diagrams 02/09/17 14:22 02/09/17 14:22 Laboratory Results 02/09/17 02/09/17 02/09/17 Range/Units 14:22 14:22 14:22 WBC 7.7 (4.0-10.5) K/mm3 RBC 5.41 (4.1-5.6) M/mm3 Hgb 15.9 (12.5-18.0) gm/dl Hct 47.2 (42-50) % MCV 87.2 (78-100) fl MCH 29.4 (26-32) pg MCHC 33.7 (32-36) g/dl RDW 14.3 H (11.5-14.0) % Plt Count 262 (150-450) K/mm3 MPV 10.6 H (6-9.5) fl Sodium 141 (136-145) mEq/L Potassium 3.6 (3.5-5.1) mEq/L Chloride 104 (98-107) mEq/L Carbon Dioxide 25.2 (21-32) mEq/L Anion Gap 14.9 (5-15) MEQ/L BUN 15 (9-20) mg/dL Creatinine 1.01 (0.55-1.30) mg/dl Estimated GFR > 60 ML/MIN Glucose 151 H (70-110) MG/DL Lactic Acid 1.7 (0.4-2.0) Calcium 8.4 L (8.5-10.1) mg/dL - Progress Progress: improved Counseled pt/family regarding: lab results, diagnosis - Departure Time of Disposition: 15:10 Departure Disposition: Home Clinical Impression: Normal exam Condition: Stable Critical Care Time: No Referrals: TIGRE HARDIN [Primary Care Provider] - Additional Instructions: Yesterday you had a lab draw from your central port that was abnormal on microscopy exam. Today we did a another set of blood cultures from 2 different sites. The results of those blood cultures will be done in a couple of days. Today all of your lab results are normal. You are feeling better than yesterday. You were given IV fluids today. Because you are feeling better and your laboratory results are good, you're being released to home. If you begin feeling ill, please return to the ER or contact your local physician.
[2017-02-09 14:44] LABS: Mean Cell Volume 87.2 fl (78-100); Mean Corpuscular Hemoglobin 29.4 pg (26-32); Mean Platelet Volume 10.6 fl (6-9.5); Platelet Count 262 K/mm3 (150-450); Red Blood Count 5.41 M/mm3 (4.1-5.6); Red Cell Distribution Width 14.3 % (11.5-14.0); White Blood Count 7.7 K/mm3 (4.0-10.5)
[2017-02-09 15:05] LABS: ANION GAP 14.9 MEQ/L (5-15); BLOOD UREA NITROGEN 15 mg/dL (9-20); CHLORIDE 104 mEq/L (98-107); Carbon Dioxide 25.2 mEq/L (21-32); Glucose 151 MG/DL (70-110); Potassium 3.6 mEq/L (3.5-5.1); SODIUM 141 mEq/L (136-145)
[2017-02-09 15:15] LABS: BAND 1 % (0.0-2.0); Basophil 1 % (0.0-1.0); Eosinophil 5 % (0.00-3.0); Platelet Estimate NORMAL (NORMAL); Total Cells Counted 100
[2017-02-09 15:47] VITALS: BP 148/73; PULSE 84; O2SAT 100
== END 2017-02-09 15:47 | disposition home or self-care (01) ==
LOC: ED 14:08
DX: R79.89 Other specified abnormal findings of blood chemistry (principal); I10 Essential (primary) hypertension; E11.9 Type 2 diabetes mellitus without complications; E83.119 Hemochromatosis, unspecified
CPT/HCPCS: 36000; 36415; 80048; 83605; 85025; 87040; 96360; 99284

== ENCOUNTER 2017-03-29 05:51 | Day surgery (SDC) | payer OTHER ==
[2017-03-29] MEDS ORDERED: Ketamine HCl 50 MG/ML IV ONE (05:52)
[2017-03-29] MEDS ORDERED: DIPRIVAN 200 MG/20 ML IV ONE (05:52)
[2017-03-29] MEDS ORDERED: Lactated Ringers 1,000 ML IV SCH (06:30)
[2017-03-29 08:00] VITALS: O2SAT 94
[2017-03-29 09:09] VITALS: BP 136/7; PULSE 71
--- NOTE | 2017-03-29 09:34 | OP ---
SURGERY DATE/TIME: 03/28/2017 0755 PREOPERATIVE DIAGNOSIS: Rectal bleeding. POSTOPERATIVE DIAGNOSIS: Normal colon. PROCEDURE: Colonoscopy. SURGEON: Dr. Rocha. ANESTHESIA: MAC. Medications given by anesthesia department. HISTORY: The patient is a 31 year-old white male patient who reports that he has been having problems with rectal bleeding over the past several months. He reports it is painless. He has not had any change in bowel habits but the patient was felt the need to have endoscopic evaluation. He was appraised of the risks of the procedure including the risk of perforation, phlebitis, untoward reaction to medication, bleeding and missed lesions. The patient verbalized his understanding and desired to have the procedure performed. DESCRIPTION OF PROCEDURE: The patient was given the medications by the anesthesia department. He had continuous pulse oximetry, ECG monitoring, intermittent blood pressure monitoring and tidal CO2 monitoring during the examination. He was placed in the left lateral decubitus position. A digital rectal examination was performed and revealed normal anal sphincter tone and no masses. The flexible Olympus pediatric colonoscope was used to intubate the rectum. A view of the colon was developed sequentially to the cecum including a short distance into the terminal ileum. Upon insertion and withdrawal, including a retroflex view in the rectum, no mucosal lesions were encountered. The scope was removed from the patient who tolerated the procedure well and was sent back to OP recovery in good condition. The prep was noted to be fair to good.
== END 2017-03-29 09:25 | disposition home or self-care (01) ==
LOC: SDC 05:51
PROVIDERS: ATTEND Family Medicine
PROC: 0DJD8ZZ Inspection of Lower Intestinal Tract, Via Natural or Artificial Opening Endoscopic (ICD-10-PCS; principal; 2017-03-29)
DX: K62.5 Hemorrhage of anus and rectum (principal); E11.9 Type 2 diabetes mellitus without complications; F41.8 Other specified anxiety disorders
CPT/HCPCS: 00810; J1642; J2704

== ENCOUNTER 2017-12-23 10:56 | Day surgery (SDC) | payer OTHER ==
--- NOTE | 2017-12-23 08:25 | HP ---
DATE OF SURGERY: 12/23/2017 HISTORY OF PRESENT ILLNESS: The patient is a 32 year-old who picked up some weight over the past few years. He is eating okay, bowels moving okay. No obstruction. He has a bulge over a prior upper midline hernia repair. PAST MEDICAL HISTORY: Hypertension, diabetes, hemochromatosis, chronic obstructive pulmonary disease. PAST SURGICAL HISTORY: Cholecystectomy. Hernia repair in the past. Groshong catheter port in the past. MEDICATIONS: Advair Diskus, Albuterol, amlodipine, Kardium capsule, Claritin, clonazepam, aspirin, divalproex sodium, duloxetine, Flonase, furosemide, Januvia, cetirizine, losartan, Lyrica, meloxicam, metformin, Toprol, potassium chloride, trazodone, Ventolin HFA. ALLERGIES: NKDA. FAMILY HISTORY: Heart disease, hypertension and hypercholesterolemia. SOCIAL HISTORY: One can of chew a day. Denies smoking, denies alcohol abuse. REVIEW OF SYSTEMS: Twelve systems reviewed per admission assessment. No chest pain or palpitations other systems negative or noncontributory as above and per preadmission questionnaire. PHYSICAL EXAMINATION: GENERAL: No acute distress. HEENT: Sclerae nonicteric. NECK: No JVD. CHEST: Equal excursion, nonlabored breathing. CVS: Regular rate and rhythm. ABDOMEN: Soft, a little bit overweight. Lower epigastrium midline incision had a bulge a little bit. He had prior cholecystectomy and prior ventral hernia repair. EXTREMITIES: No significant edema. NEURO: Alert, oriented, moving extremities symmetrically. No gross motor deficits noted. IMPRESSION: Recurrent incarcerated ventral hernia with past history of hernia repair and cholecystectomy in the past. I feel he will benefit from repair as he has been having increasing symptoms, picked up weight. Otherwise, risks and benefits explained in detail including but not limited to bleeding or infection, risk of trocar injury or hernia, small risk of bowel, bladder or blood vessel injury possibility that he may have too many adhesions given his prior hernia repair to stay laparoscopic. We may need to convert to open repair. General risk of aches, pains, burning or numbness possible skilled nursing or chronic in nature, general risk of hernia recurrence, risk of scar formation, adhesions or obstruction, remote risk of mesh fracture or failure possibly creating issues with the viscera or other structures possibly requiring other procedures, ongoing morbidity, general risk of anesthesia, deep venous thrombosis, pulmonary embolism, pneumonia. He also understands the risk of hematoma or seroma formation, ingrown hair or suture reaction, risk if the mesh became infected likely would need removed. He understands all of the above but not limited to. Will proceed with laparoscopic possible open repair of ventral hernia with mesh as a 24 hour observation after procedure depending on the size of the mesh and postoperative aches and pains. He understands and agrees to the planned procedure as noted above but not limited to, will proceed with 24 hour observation procedure.
[~2017-12-23 10:56] MED LIST: KEFZOL 1 GM ONE; KEFZOL 1 GM** 3 G in Sodium Chloride 0.9% 50 ML 50 ML IV SCH; Lactated Ringers 1,000 ML IV ONE; Sensorcaine 0.25% 10 ML ONE
[2017-12-23] MEDS ORDERED: SUBLIMAZE 100 MCG/2 ML IV ONE (10:57)
[2017-12-23] MEDS ORDERED: BRIDION 200MG/2ML IV ONE (10:57)
[2017-12-23] MEDS ORDERED: Versed 2 MG/2 ML Injection IV ONE (10:57)
[2017-12-23] MEDS ORDERED: Zemuron 100 MG/10 ML IV ONE (10:57)
[2017-12-23] MEDS ORDERED: Quelicin Fliptop 200 MG/10 ML IV ONE (10:57)
[2017-12-23] MEDS ORDERED: SUBLIMAZE 250 MCG/5 ML IV ONE (10:57)
[2017-12-23] MEDS ORDERED: DIPRIVAN 200 MG/20 ML IV ONE (10:57)
[2017-12-23] MEDS ORDERED: Lactated Ringers 0 ML IV ONE (11:07)
[2017-12-23] MEDS: Lactated Ringers 1,000 ML IV SCH ×2 (11:09→18:11)
[2017-12-23 11:22] LABS: Hematocrit 45.6 % (42-50); Hemoglobin 16.2 gm/dl (12.5-18.0); Mean Cell Volume 81.6 fl (78-100); Mean Corpuscular Hgb Concent. 35.5 g/dl (32-36); Mean Platelet Volume 10.8 fl (6-9.5); Platelet Count 222 K/mm3 (150-450); Red Blood Count 5.59 M/mm3 (4.1-5.6); White Blood Count 6.8 K/mm3 (4.0-10.5)
[2017-12-23 11:49] LABS: ALBUMIN 4.5 g/dL (3.5-5.0); ALKALINE PHOSPHATASE 107 U/L (38-126); ANION GAP 16.2 MEQ/L (5-15); BLOOD UREA NITROGEN 16 mg/dL (9-20); CHLORIDE 100 mmol/L (98-107); Calcium 9.4 mg/dL (8.4-10.2); Carbon Dioxide 27 mmol/L (22-30); Creatinine 1 0.71 mg/dL (0.66-1.25); Glucose 250 mg/dL (74-106); Potassium 4.4 mmol/L (3.5-5.1); SGOT/AST 57 U/L (17-59); SGPT/ALT 63 U/L (0-50); SODIUM 138 mmol/L (137-145); Total Protein 7.6 g/dL (6.3-8.2)
[2017-12-23] MEDS ORDERED: Sodium Chloride 0.9% 1000 ML 1,000 ML ONE ×2 (14:56→16:51)
[2017-12-23] MEDS ORDERED: DILAUDID 2 MG INJECTION ONE (17:36)
[2017-12-23] MEDS ORDERED: SUBLIMAZE 100 MCG/2 ML ONE (17:36)
[2017-12-23] MEDS ORDERED: TORAdol 30 mg Injection IV PRN (18:08)
[2017-12-23] MEDS ORDERED: Zofran 4 MG/2 ML VIAL IV PRN (18:08)
[2017-12-23] MEDS ORDERED: MORPHINE SULFATE 4 MG INJ IV PRN (18:08)
[2017-12-23 18:32] LABS: Appearance CLEAR (CLEAR); Bilirubin NEGATIVE (NEGATIVE); Blood TRACE NON-HEM Ery/ul (0-5); Epithelial Cells FEW /HPF (FEW); Glucose 250 mg/dL (NEGATIVE); Ketones SMALL (NEGATIVE); Leukocyte Esterase TRACE (NEGATIVE); Mucus SLIGHT /HPF (NEGATIVE); Nitrite NEGATIVE (NEGATIVE); Protein,Urine Dip 30 (Negative); RBC 0-2 /HPF (0-2); Urobilinogen NORMAL mg/dL (0-1)
[2017-12-23] MEDS ORDERED: Toprol Xl 50 MG PO SCH (22:00)
[2017-12-23] MEDS ORDERED: Depakote EXTENDED RELEASE 250 MG PO SCH (22:00)
[2017-12-23] MEDS ORDERED: Glucophage 500 MG PO ONE (22:00)
[2017-12-23] MEDS: NORCO 5/325 MG PO PRN (23:08)
[2017-12-24] MEDS: NORCO 5/325 MG PO PRN ×2 (02:41→07:28)
[2017-12-24 06:05] VITALS: O2SAT 95
[2017-12-24] MEDS ORDERED: Nitrostat 0.4 MG Tablet SL PRN (07:23)
[2017-12-24] MEDS ORDERED: Ventolin Hfa MDI IH PRN (07:23)
[2017-12-24] MEDS ORDERED: LYRICA 150MG PO SCH (07:30)
[2017-12-24 07:44] VITALS: PULSE 75
[2017-12-24] MEDS ORDERED: ADVAIR HFA 45/21 COMMON CANISTER IH SCH (08:00)
[2017-12-24] MEDS ORDERED: PROVENTIL COMMON CANISTER IH SCH (08:00)
[2017-12-24] MEDS ORDERED: Glucophage 500 MG PO SCH (08:00)
[2017-12-24] MEDS ORDERED: MEDICATION INTERVENTION MC SCH (08:00)
--- NOTE | 2017-12-24 08:12 | OP ---
SURGERY DATE/TIME: 12/23/2017 1454 PREOPERATIVE DIAGNOSIS: Symptomatic recurrent incarcerated ventral hernia. POSTOPERATIVE DIAGNOSIS: Symptomatic recurrent incarcerated ventral hernia. PROCEDURE: Laparoscopic assisted repair of recurrent incarcerated ventral hernia x2 repaired en bloc with single piece of mesh. SURGEON: Dr. John Belle. SURVEYOR INSTRUMENT ASSISTANT: Marky Ashton, Medical Student III. ANESTHESIA: General. ESTIMATED BLOOD LOSS: Minimal. INDICATIONS: As noted above. Risks and benefits explained in detail and not limited to and consent obtained. The site was confirmed in the preoperative holding area. DESCRIPTION OF PROCEDURE AND FINDINGS: He is taken to the operating room. General anesthesia induced. Abdomen prepped and draped in usual sterile fashion. After official time out and no disagreement with planned procedure, a stab wound was made in the infraumbilical area. Fascia grasped and pulled upward. Veress needle inserted and tested with saline. Pneumoperitoneum accomplished. Opening pressure 0 to 15. A 5 mm bladeless port and camera were inserted without difficulty in the left mid abdomen. There is no evidence of any intra-abdominal injury secondary to trocar insertion or Veress needle placement. Additional 5 mm left upper quadrant and left lower quadrant ports were placed under visualization of the camera as well as the right abdomen port was placed under visualization of the camera. Following this the patient had extensive omental adhesions up to the old mesh this was carefully taken down at the inferior edge. There is incarcerated ventral hernia. The bottom edge of the mesh sutured and pulled free. There is an additional much smaller hernia little further caudally after taking some time to reduce all of the incarcerated fat in these two hernias particularly the one closest to the mesh. It took quite some time but slowly and carefully reduced incarcerated fat and omentum with aide of LigaSure device and some gentle dissection. It was finally able to be freed visualizing the main hernia defect. Again there is a small hernia defect more caudally. It was felt these should both be repaired en bloc with single piece of mesh as the old mesh had the one suture pulled free was well incorporated and it was felt it should not be removed. It was felt that this new hernia should be repaired with a little bit of mesh overlapping on the old mesh site. By turning the pressure down to 8 to 10 the size of the defect is marked with spinal needle and felt the most appropriate size 11 cm Echo light mesh. The areas are carefully marked. Once this is done stay sutures placed on the mesh at four quadrants with 0 Ethibond. At this point small incision is made over the larger hernia defect using a suture passer. The true facial defects closed with interrupted 0 PDS with the sutures left loose with 12 port placed through the defect rolling the mesh that had the Ethibond on it carefully inserted without difficulty. The port was removed. The transfascial 0 PDS sutures around the hernia defect is closed closing the fascial part with the mesh then pulled up and the centering of this defect with the balloon carefully inflated. The 0 Ethibond four quadrant sutures were then pulled up through four separate stab wounds securing the transfascial sutures in the mesh. Once this was accomplished the mesh is nice and flat in fashion using a capture tacker carefully tacking around the edge at about 1 cm apart around the mesh circumferentially. Once this was done the balloon was deflated and removed. The 5 port was removed intact. The staff confirmed that it was all there and passed off. The port is replaced. At this point SorbaFix tacker was then used to transfixate closer to the area where the hernia fascial defect was reducing the risk of seroma formation. Pictures taken. Mesh is nice and flat fashion. The incarcerated omentum and preperitoneal fat that had been reduced off the abdominal wall to allow for mesh placement. The hernia itself is inspected. It had good hemostasis. There is no evidence of any bowel or visceral issues. At this point the mesh is nice and flat in tension-free manner. It should be noted that the mesh is transfixed sutured intact with pressure around 8 to reduce distortion of the abdominal wall. Again, the mesh is lying nice and flat fashion in tension-free manner. It was felt that no further tacks were necessary at this point. Pneumoperitoneum decompressed. Skin incision closed with 4-0 Vicryl. Steri-Strips and sterile dressing applied. Anesthesia applied tap blocks at the end for additional pain control. Findings discussed with the family out in the waiting area. He was taken to the recovery room. Pain control-chiang if he was comfortable he will be discharged home. If he needs to stay for IV pain medication overnight it would be 23 hours. He is to avoid any heavy lifting or straining for six to eight weeks. He is to wear abdominal binder and ice pack as needed.
[2017-12-24 08:37] VITALS: BP 138/85
[2017-12-24] MEDS ORDERED: Singulair 10 MG PO SCH (10:00)
[2017-12-24] MEDS ORDERED: NORVASC 5 MG PO SCH (10:00)
[2017-12-24] MEDS ORDERED: B LONGUM PO SCH (10:00)
[2017-12-24] MEDS ORDERED: NON-FORMULARY ITEM (Aspirin [Aspirin] 81 MG) PO SCH (10:00)
[2017-12-24] MEDS ORDERED: Lasix 40 MG PO SCH (10:00)
[2017-12-24] MEDS ORDERED: NON-FORMULARY ITEM (Sitagliptin Phosphate [Januvia] 25 MG) PO SCH (10:00)
[2017-12-24] MEDS ORDERED: ECOTRIN 81 MG PO SCH (10:00)
[2017-12-24] MEDS ORDERED: Toprol Xl 50 MG PO SCH (10:00)
[2017-12-24] MEDS ORDERED: GASSERI PO SCH (10:00)
[2017-12-24] MEDS ORDERED: NON-FORMULARY ITEM (Cetirizine Hcl [Zyrtec] 10 MG) PO SCH (10:00)
[2017-12-24] MEDS ORDERED: Cymbalta 30 MG Capsule PO SCH (10:00)
[2017-12-24] MEDS ORDERED: NON-FORMULARY ITEM (Fluticasone/Salmeterol [Advair 100-50 Diskus] 1 EACH) IH SCH (10:00)
[2017-12-24] MEDS ORDERED: B BIFIDUM PO SCH (10:00)
[2017-12-24] MEDS ORDERED: Acidophilus TABLET PO SCH (10:00)
[2017-12-24] MEDS ORDERED: NON-FORMULARY ITEM (Clonazepam [Klonopin] 1 MG) PO SCH (10:00)
[2017-12-24] MEDS ORDERED: Januvia 50 MG PO SCH (10:00)
[2017-12-24] MEDS ORDERED: Cozaar 50 MG PO SCH (10:00)
[2017-12-24] MEDS ORDERED: CLARITIN 10 MG PO SCH (10:00)
[2017-12-24] MEDS ORDERED: NON-FORMULARY ITEM (Potassium Chloride [Potassium Chloride] 8 MEQ) PO SCH (10:00)
[2017-12-24] MEDS ORDERED: NON-FORMULARY ITEM (Duloxetine Hcl [Cymbalta] 120 MG) PO SCH (10:00)
[2017-12-24] MEDS ORDERED: Klor Con 10 MEQ PO SCH (10:00)
[2017-12-24] MEDS ORDERED: Klonopin 0.5 MG PO SCH (10:00)
[2017-12-24] MEDS ORDERED: NAPROSYN 375 MG PO SCH (10:00)
[2017-12-24] MEDS ORDERED: [UNRECOGNIZED DRUG - OTHER] PO SCH (10:00)
== END 2017-12-24 11:14 | disposition home or self-care (01) ==
LOC: SDC 10:56 → MED SURG 18:01 → SDC 12-24 11:14
PROVIDERS: ATTEND Surgery
DX: K43.0 Incisional hernia with obstruction, without gangrene (principal); I10 Essential (primary) hypertension; E11.9 Type 2 diabetes mellitus without complications; E83.119 Hemochromatosis, unspecified; J44.9 Chronic obstructive pulmonary disease, unspecified; Z79.4 Long term (current) use of insulin; Z79.899 Other long term (current) drug therapy
CPT/HCPCS: 36415; 64488; 76937; 76942; 80053; 81000; 85027; 87086; 94250; 94760; J0330; J0690; J1170; J1642; J2250; J2270; J2704; J3010; L0625; A9270-GY

== ENCOUNTER 2018-02-15 13:57 | Observation (INO) | payer OTHER ==
[2018-02-15] MEDS ORDERED: BABY ASPIRIN 81 MG CHEW PO ONE (14:16)
[2018-02-15] MEDS ORDERED: Sodium Chloride 0.9% 1000 ML 1,000 ML IV STA ×3 (14:16→15:13)
[2018-02-15 14:24] LABS: VBG BASE EXCESS -6.3 (-2.0-2.0); VBG HCO3- 16.7 meq/L (22-28); VBG HEMOGLOBIN 16.1; VBG O2 SATURATION 97.7 (95-100); VBG POTASSIUM 3.7 (3.5-5.1); VBG pH 7.4 (7.32-7.42)
--- NOTE | 2018-02-15 14:25 | ERPHSYRPT ---
- History of Present Illness Time Seen by Provider: 02/15/18 14:13 Historian: patient Exam Limitations: no limitations Patient Subjective Stated Complaint: here for sudden onset of chest pain and pain to legs, arms and neck about 30 mins ago. with nausea Triage Nursing Assessment: pt alert, but wont open eyes, he is hyperventilating , and encouraged to slow breathing down,, chest clear, no edema, moves all ext, skin w/d/p Physician History: 32-year-old white male with history of angina, arrhythmia, high blood pressure, bronchitis, pneumonia, diabetes type 2, arthritis, anxiety, depression, hemachromatosis, tachycardia Patient arrives with complaint of anterior chest pain pain to his arms and legs and neck symptoms for 30 minutes no shortness of breath positive nausea. Past medical history includes angina, arrhythmia, asthma, bronchitis, high blood pressure, hernia, fractures, anxiety, depression, liver disease, hemachromatosis, asthmatic bronchitis Past surgical history includes colon is sick cystectomy, hernia repair, central line Timing/Duration: today (30 minutes prior to arriv) Activities at Onset: none Quality: aching Chest Pain Radiation: arm (arms and legs) Severity of Pain-Max: moderate Severity of Pain-Current: moderate Modifying Factors: Improves With: nothing Associated Symptoms: nausea Aspirin Treatment Today: 81 mg x 1 (at home), 81 mg x 3 (in er) Allergies/Adverse Reactions: turmeric Allergy (Verified 02/15/18 18:38) Anaphylactic Reaction Home Medications: Divalproex Sodium [Depakote] 1,500 mg PO HS 10/17/16 [History] Duloxetine HCl [Cymbalta] 120 mg PO DAILY 10/17/16 [History] Losartan Potassium [Cozaar] 100 mg PO DAILY 10/17/16 [History] clonazePAM [Klonopin] 1 mg PO TID 10/17/16 [History] Furosemide 40 mg [Lasix 40 MG] 40 mg PO DAILY 12/28/16 [History] Potassium Chloride 8 meq PO DAILY 12/28/16 [History] Metoprolol Succinate 50 mg [Toprol Xl 50 MG] 100 mg PO BID 03/28/17 [ History] l Gasseri/B Bifidum/B Longum [[employer] Capsule] 1 each PO TID [History] Albuterol Sulfate [Ventolin Hfa] 3 puffs IH Q6HPRN PRN 12/12/17 [History] Amlodipine Besylate 5 mg PO DAILY 12/12/17 [History] Aspirin 81 mg PO DAILY 12/12/17 [History] Cetirizine HCl [Zyrtec] 10 mg PO DAILY 12/12/17 [History] Montelukast Sodium 10 mg [Singulair 10 MG] 10 mg PO DAILY 12/12/17 [History] Naproxen 375 mg [Naprosyn 375 mg] 375 mg PO BID 12/12/17 [History] Sitagliptin Phosphate [Januvia] 25 mg PO DAILY 12/12/17 [History] Fluticasone Propionate [Flonase Allergy Relief] 1 spray NS BID 02/15/18 [History ] Fluticasone/Salmeterol 500/50* [Advair 500-50 Diskus] 2 each IH BID 02/15/18 [History] Hx Tetanus, Diphtheria Vaccination/Date Given: Yes Hx Influenza Vaccination/Date Given: No Hx Pneumococcal Vaccination/Date Given: Yes - Review of Systems Constitutional: No Fever, No Chills Eyes: No Symptoms Ears, Nose, & Throat: No Symptoms Respiratory: No Cough, No Dyspnea Cardiac: Chest Pain Abdominal/Gastrointestinal: Nausea, No Abdominal Pain, No Vomiting, No Diarrhea Musculoskeletal: Other (arm and leg pain) Skin: No Rash Neurological: No Dizziness, No Focal Weakness, No Sensory Changes Psychological: No Symptoms Endocrine: No Symptoms All Other Systems: Reviewed and Negative - Past Medical History Pertinent Past Medical History: Yes Neurological History: No Pertinent History ENT History: No Pertinent History Cardiac History: Hypertension Respiratory History: Asthma, Bronchitis Endocrine Medical History: Diabetes Type II, Other Musculoskeletal History: Fractures, Osteoarthritis GI Medical History: Hernia, Other History: No Pertinent History Psycho-Social History: Anxiety, Depression, Other Male Reproductive Disorders: No Pertinent History Other Medical History: liver disease, Hemachromatosis. Pt denies COPD but does have hx of asthmatic bronchitis - Past Surgical History Past Surgical History: Yes Neuro Surgical History: No Pertinent History Cardiac: No Pertinent History Respiratory: No Pertinent History Gastrointestinal: Cholecystectomy, Hernia Repair Genitourinary: No Pertinent History Musculoskeletal: Other Male Surgical History: No Pertinent History Other Surgical History: central line Groshong CV catheterx8 - Social History Smoking Status: Never smoker Exposure to second hand smoke: No Drug Use: none Patient Lives Alone: No - Nursing Vital Signs Nursing Vital Signs: Initial Vital Signs Temperature 97.2 F 02/15/18 13:58 Pulse Rate 116 H 02/15/18 13:58 Respiratory Rate 24 02/15/18 13:58 Blood Pressure 140/89 02/15/18 13:58 O2 Sat by Pulse Oximetry 98 02/15/18 13:58 Pain Scale Pain Intensity 0 - Physical Exam General Appearance: moderate distress Eye Exam: PERRL/EOMI, eyes nml inspection Ears, Nose, Throat Exam: normal ENT inspection, moist mucous membranes Neck Exam: normal inspection, non-tender, supple, full range of motion Respiratory Exam: normal breath sounds, lungs clear, No respiratory distress Cardiovascular Exam: regular rate/rhythm, normal heart sounds Gastrointestinal/Abdomen Exam: soft, No tenderness, No mass Back Exam: normal inspection, No CVA tenderness, No vertebral tenderness Extremity Exam: normal inspection, normal range of motion Neurologic Exam: alert, oriented x 3, cooperative, 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 Small nodules are noted within the right upper and right lower lobes told month follow-up with CT is recommended. Extensive diffuse hepatic steatosis.) Ordered Tests: Medication Summary Discontinued Medications Generic Name Dose Route Start Last Admin Trade Name Freq PRN Reason Stop Dose Admin Hydrocodone Bitart/Acetaminophen 1 tab 02/15/18 23:07 02/15/18 23:10 Roscoe 5/325 Mg PO 02/20/18 23:06 1 tab Q6H PRN PRN Administration PAIN Albuterol Sulfate 2.5 mg 02/15/18 22:34 Proventil 2.5 Mg/3 Ml Neb IH 03/17/18 22:33 Q4H PRN PRN SHORTNESS OF BREATH/WHEEZING Aspirin 243 mg 02/15/18 14:16 02/15/18 14:30 Baby Aspirin 81 Mg Chew PO 02/15/18 14:17 243 mg STAT ONE Administration Aspirin Confirm 02/15/18 14:28 Baby Aspirin 81 Mg Chew Administered 02/15/18 14:29 Dose 324 mg .ROUTE .STK-MED ONE Clonazepam 1 mg 02/15/18 22:00 02/15/18 22:04 Klonopin 0.5 Mg PO 03/17/18 21:59 1 mg TID MONET Administration Divalproex Sodium 1,500 mg 02/15/18 22:00 02/15/18 22:[address] 250 Mg Tab PO 03/17/18 21:59 1,500 mg HS MONET Administration Fluticasone Propionate Confirm 02/15/18 21:52 Flonase Nasal Administered 02/15/18 21:53 Dose 16 gm NS .STK-MED ONE Fluticasone Propionate 1 gm 02/15/18 22:00 02/15/18 22:16 Flonase Nasal NS 03/17/18 21:59 1 gm BID MONET Administration Fluticasone Propionate 0 gm 02/16/18 10:00 Flonase Nasal NS 03/17/18 21:59 BID MONET Heparin Sodium (Beef Lung) 500 units 02/16/18 08:14 Heparin Lock Flush 100 Units/Ml 5ml Syringe PORT FLUSH 03/18/18 08:13 PRN PRN IV PORT FLUSH Sodium Chloride 1,000 mls @ 999 mls/hr 02/15/18 14:16 02/15/18 15:16 Sodium Chloride 0.9% 1000 Ml IV 02/15/18 15:16 Infused .Q1H1M STA Infusion Sodium Chloride 1,000 mls @ 999 mls/hr 02/15/18 14:19 02/15/18 16:00 Sodium Chloride 0.9% 1000 Ml IV 02/15/18 15:19 Infused .Q1H1M STA Infusion Sodium Chloride Confirm 02/15/18 14:28 Sodium Chloride 0.9% 1000 Ml Administered 02/15/18 14:29 Dose 1,000 mls @ ud .ROUTE .STK-MED ONE Sodium Chloride Confirm 02/15/18 14:53 Sodium Chloride 0.9% 1000 Ml Administered 02/15/18 14:54 Dose 1,000 mls @ ud .ROUTE .STK-MED ONE Sodium Chloride 1,000 mls @ 999 mls/hr 02/15/18 15:13 02/15/18 15:55 Sodium Chloride 0.9% 1000 Ml IV 02/15/18 16:13 999 mls/hr .Q1H1M STA Administration Ceftriaxone Sodium/Dextrose 1 g in 50 mls @ 100 mls/hr 02/15/18 15:16 15:56 Rocephin 1 Gm-D5w 50 Ml Bag IV 02/15/18 15:45 100 mls/hr STAT STA Administration Sodium Chloride Confirm 02/15/18 15:50 Sodium Chloride 0.9% 1000 Ml Administered 02/15/18 15:51 Dose 1,000 mls @ ud .ROUTE .STK-MED ONE Ceftriaxone Sodium/Dextrose Confirm 02/15/18 15:51 Rocephin 1 Gm-D5w 50 Ml Bag Administered 02/15/18 15:52 Dose 1 g in 50 mls @ ud IV .STK-MED ONE Insulin Human Regular 100 101 mls @ 10.1 mls/hr 02/15/18 16:00 02/15/18 19:17 units/ Sodium Chloride IV 03/17/18 15:59 8 units/hr .Q10H MONET 8.08 mls/hr Infusion 10 UNITS/HR Sodium Chloride Confirm 02/15/18 16:43 Sodium Chloride 0.9% 100 Ml Ivpb Administered 02/15/18 16:44 Dose 100 mls @ ud IV .STK-MED ONE Sodium Chloride 1,000 mls @ 200 mls/hr 02/15/18 19:15 02/15/18 18:20 Sodium Chloride 0.9% 1000 Ml IV 03/17/18 19:14 200 mls/hr .Q5H MONET Administration Potassium Chloride/Sodium Chloride 1,000 mls @ 125 mls/hr 02/15/18 21:30 06:01 Sodium Chloride 0.9% W/ 20 Meq Kcl/Liter IV 03/17/18 21:29 125 mls/hr .Q8H MONET Administration Insulin Aspart 0 unit 02/15/18 21:29 02/16/18 08:08 Novolog Insulin SQ 03/17/18 21:28 5 unit UD PRN Administration HYPERGLYCEMIA Insulin Glargine 10 unit 02/15/18 21:30 02/15/18 21:42 Lantus Insulin SQ 02/15/18 21:31 10 unit ONCE ONE Administration Insulin Human Regular Confirm 02/15/18 16:43 Novolin R Administered 02/15/18 16:44 Dose 100 unit .ROUTE .STK-MED ONE Metoprolol Succinate 100 mg 02/15/18 22:00 02/15/18 22:05 Toprol Xl 100 Mg PO 03/17/18 21:59 100 mg BID MONET Administration Morphine Sulfate 4 mg 02/15/18 16:07 02/15/18 16:14 Morphine Sulfate 4 Mg Inj IV 02/15/18 16:08 4 mg STAT ONE Administration Morphine Sulfate Confirm 02/15/18 16:11 Morphine Sulfate 4 Mg Inj Administered 02/15/18 16:12 Dose 4 mg .ROUTE .STK-MED ONE Naproxen 375 mg 02/15/18 22:00 02/15/18 22:08 Naprosyn 375 Mg PO 03/17/18 21:59 375 mg BID MONET Administration Nitroglycerin 0.4 mg 02/15/18 21:40 Nitrostat 0.4 Mg Tablet SL 03/17/18 21:39 Q5MIN PRN MR X 3 PRN CHEST PAIN Ondansetron HCl 4 mg 02/15/18 16:07 02/15/18 16:14 Zofran 4 Mg/2 Ml Vial IV 02/15/18 16:08 4 mg STAT ONE Administration Ondansetron HCl Confirm 02/15/18 16:11 Zofran 4 Mg/2 Ml Vial Administered 02/15/18 16:12 Dose 4 mg .ROUTE .STK-MED ONE Potassium Bicarbonate 50 meq 02/15/18 15:58 02/15/18 16:14 K-Lyte 25 Meq PO 02/15/18 15:59 50 meq STAT ONE Administration Potassium Bicarbonate Confirm 02/15/18 16:11 K-Lyte 25 Meq Administered 02/15/18 16:12 Dose 50 meq .ROUTE .STK-MED ONE Fluticasone/Salmeterol 2 puff 02/15/18 22:00 02/16/18 06:29 Advair Hfa 230/21 Mcg Common Canister* IH 03/17/18 21:59 2 puff BIDRT MONET Administration Lab/Rad Data: Laboratory Result Diagrams 02/15/18 14:10 02/15/18 14:10 Laboratory Results 02/15/18 02/15/18 02/15/18 Range/Units 17:45 15:10 14:20 WBC (4.0-10.5) K/mm3 RBC (4.1-5.6) M/mm3 Hgb (12.5-18.0) gm/dl Hct (42-50) % MCV (78-100) fl MCH (26-32) pg MCHC (32-36) g/dl RDW (11.5-14.0) % Plt Count (150-450) K/mm3 MPV (6-9.5) fl Absolute Granulocytes (1.4-6.9) Segmented Neutrophils (36.-66.) % Band Neutrophils (0.0-2.0) % Lymphocytes (Manual) (24-44) % Monocytes (Manual) (0.0-12.0) % Platelet Estimate (NORMAL) RBC Morphology PT (8.83-12.87) SECONDS INR (0.8-3.0) APTT (24.1-36.1) SECONDS D-Dimer (215-500) ng/mL pO2/FiO2 Ratio 21.0 % VBG pH 7.40 (7.32-7.42) VBG pCO2 at Pat Temp 27 L (42-55) mm/Hg VBG pO2 at Pat Temp 73 H (25-40) mm/Hg VBG HCO3 16.7 L* (22-28) meq/L VBG O2 Sat (Mitzy) 97.7 (95-100) VBG Base Excess -6.3 L (-2.0-2.0) VBG Hemoglobin 16.1 VBG Carboxyhemoglobin 3.0 (0.0-6.9) % T HGB POC Potassium 3.7 (3.5-5.1) Sodium (137-145) mmol/L Potassium (3.5-5.1) mmol/L Chloride (98-107) mmol/L Carbon Dioxide (22-30) mmol/L Anion Gap (5-15) MEQ/L BUN (9-20) mg/dL Creatinine (0.66-1.25) mg/dL Estimated GFR ML/MIN Glucose (74-106) mg/dL Calcium (8.4-10.2) mg/dL Total Bilirubin (0.2-1.3) mg/dL AST (17-59) U/L ALT (0-50) U/L Alkaline Phosphatase (38-126) U/L Troponin I < 0.012 (0.000-0.034) ng/mL Serum Total Protein (6.3-8.2) g/dL Albumin (3.5-5.0) g/dL Ur Collection Type CLEAN CATCH Urine Color YELLOW (YELLOW) Urine Appearance CLEAR (CLEAR) Urine pH 5.0 (5-6) Ur Specific [place] 1.020 (1.005-1.025) Urine Protein NEGATIVE (Negative) Urine Ketones NEGATIVE (NEGATIVE) Urine Blood NEGATIVE (0-5) Godfrey/ul Urine Nitrite NEGATIVE (NEGATIVE) Urine Bilirubin NEGATIVE (NEGATIVE) Urine Urobilinogen NORMAL (0-1) mg/dL Ur Leukocyte Esterase NEGATIVE (NEGATIVE) Urine Culture Reflexed NO (NO) Urine Glucose 1000 (NEGATIVE) mg/dL Specimen Received 02-15-18 1500 02/15/18 02/15/18 02/15/18 Range/Units 14:10 14:10 14:10 WBC (4.0-10.5) K/mm3 RBC (4.1-5.6) M/mm3 Hgb (12.5-18.0) gm/dl Hct (42-50) % MCV (78-100) fl MCH (26-32) pg MCHC (32-36) g/dl RDW (11.5-14.0) % Plt Count (150-450) K/mm3 MPV (6-9.5) fl Absolute Granulocytes (1.4-6.9) Segmented Neutrophils (36.-66.) % Band Neutrophils (0.0-2.0) % Lymphocytes (Manual) (24-44) % Monocytes (Manual) (0.0-12.0) % Platelet Estimate (NORMAL) RBC Morphology PT 11.0 (8.83-12.87) SECONDS INR 0.95 (0.8-3.0) APTT 30.7 (24.1-36.1) SECONDS D-Dimer 841 H* (215-500) ng/mL pO2/FiO2 Ratio % VBG pH (7.32-7.42) VBG pCO2 at Pat Temp (42-55) mm/Hg VBG pO2 at Pat Temp (25-40) mm/Hg VBG HCO3 (22-28) meq/L VBG O2 Sat (Mitzy) (95-100) VBG Base Excess (-2.0-2.0) VBG Hemoglobin VBG Carboxyhemoglobin (0.0-6.9) % T HGB POC Potassium (3.5-5.1) Sodium 134 L (137-145) mmol/L Potassium 3.8 (3.5-5.1) mmol/L Chloride 96 L (98-107) mmol/L Carbon Dioxide 15 L* (22-30) mmol/L Anion Gap 26.1 H (5-15) MEQ/L BUN 11 (9-20) mg/dL Creatinine 0.64 L (0.66-1.25) mg/dL Estimated GFR > 60.0 ML/MIN Glucose 507 H* (74-106) mg/dL Calcium 9.7 (8.4-10.2) mg/dL Total Bilirubin 0.70 (0.2-1.3) mg/dL AST 82 H (17-59) U/L ALT 75 H (0-50) U/L Alkaline Phosphatase 103 (38-126) U/L Troponin I < 0.012 (0.000-0.034) ng/mL Serum Total Protein 7.7 (6.3-8.2) g/dL Albumin 4.7 (3.5-5.0) g/dL Ur Collection Type Urine Color (YELLOW) Urine Appearance (CLEAR) Urine pH (5-6) Ur Specific [place] (1.005-1.025) Urine Protein (Negative) Urine Ketones (NEGATIVE) Urine Blood (0-5) Godfrey/ul Urine Nitrite (NEGATIVE) Urine Bilirubin (NEGATIVE) Urine Urobilinogen (0-1) mg/dL Ur Leukocyte Esterase (NEGATIVE) Urine Culture Reflexed (NO) Urine Glucose (NEGATIVE) mg/dL Specimen Received 02/15/18 Range/Units 14:10 WBC 10.1 (4.0-10.5) K/mm3 RBC 5.55 (4.1-5.6) M/mm3 Hgb 15.7 (12.5-18.0) gm/dl Hct 44.2 (42-50) % MCV 79.6 (78-100) fl MCH 28.3 (26-32) pg MCHC 35.5 (32-36) g/dl RDW 14.2 H (11.5-14.0) % Plt Count 288 (150-450) K/mm3 MPV 10.3 H (6-9.5) fl Absolute Granulocytes 8.87 H (1.4-6.9) Segmented Neutrophils 70 H (36.-66.) % Band Neutrophils 6 H (0.0-2.0) % Lymphocytes (Manual) 20 L (24-44) % Monocytes (Manual) 4 (0.0-12.0) % Platelet Estimate NORMAL (NORMAL) RBC Morphology NORMAL PT (8.83-12.87) SECONDS INR (0.8-3.0) APTT (24.1-36.1) SECONDS D-Dimer (215-500) ng/mL pO2/FiO2 Ratio % VBG pH (7.32-7.42) VBG pCO2 at Pat Temp (42-55) mm/Hg VBG pO2 at Pat Temp (25-40) mm/Hg VBG HCO3 (22-28) meq/L VBG O2 Sat (Mitzy) (95-100) VBG Base Excess (-2.0-2.0) VBG Hemoglobin VBG Carboxyhemoglobin (0.0-6.9) % T HGB POC Potassium (3.5-5.1) Sodium (137-145) mmol/L Potassium (3.5-5.1) mmol/L Chloride (98-107) mmol/L Carbon Dioxide (22-30) mmol/L Anion Gap (5-15) MEQ/L BUN (9-20) mg/dL Creatinine (0.66-1.25) mg/dL Estimated GFR ML/MIN Glucose (74-106) mg/dL Calcium (8.4-10.2) mg/dL Total Bilirubin (0.2-1.3) mg/dL AST (17-59) U/L ALT (0-50) U/L Alkaline Phosphatase (38-126) U/L Troponin I (0.000-0.034) ng/mL Serum Total Protein (6.3-8.2) g/dL Albumin (3.5-5.0) g/dL Ur Collection Type Urine Color (YELLOW) Urine Appearance (CLEAR) Urine pH (5-6) Ur Specific [place] (1.005-1.025) Urine Protein (Negative) Urine Ketones (NEGATIVE) Urine Blood (0-5) Godfrey/ul Urine Nitrite (NEGATIVE) Urine Bilirubin (NEGATIVE) Urine Urobilinogen (0-1) mg/dL Ur Leukocyte Esterase (NEGATIVE) Urine Culture Reflexed (NO) Urine Glucose (NEGATIVE) mg/dL Specimen Received - Progress Progress: improved Air Movement: fair Progress Note: 02/15/18 16:02 32-year-old white male with history of angina, diabetes type 2, asthma, bronchitis, high blood pressure, hernia, fractures, osteoarthritis, anxiety, depression He arrives with complaint of 30 minutes of pain in his chest bilateral arms bilateral legs he was hyperventilating on arrival. Patient is noted to have a blood sugar of 507 on his chemistry ABGs do not show acidosis however the patient is hyperventilating and he has a PCO2 of 27 a bicarbonate of 16 pH is 7.4. Patient did have an elevated d-dimer chest x-ray was unremarkable EKG sinus tachycardia 1 13 bpm axis S1/Q3 pattern, no acute ST or T wave changes troponin within normal limits Patient is improving with IV fluids patient's the glucose is still over 400 after 2 L. He is receiving another liter at 200 mL/h. I've discussed the patient's case with Dr. Diaz who is superintendent stations for Dr. Rocha. Will go ahead and place patient on an insulin drip at 10 units per hour will go ahead and obtain CT a chest. Patient is also going to be given 50 mEq orally and potassium bicarbonate. And Dr. Diaz would like the patient to receive potassium 20 mEq in his IV fluids per liter. 02/15/18 17:42 Insulin drip has been started. CT chest negative for PE. Patient appears to have compensated diabetic ketoacidosis case is discussed with Dr. Diaz will admit on ketoacidosis protocol. - Departure Time of Disposition: 17:46 Departure Disposition: Observation Clinical Impression: Hyperglycemia Chest pain Qualifiers: Chest pain type: unspecified Qualified Code(s): R07.9 - Chest pain, unspecified Diabetic ketoacidosis Qualifiers: Diabetes mellitus type: type 2 Diabetes mellitus complication detail: without coma Qualified Code(s): E11.10 - Type 2 diabetes mellitus with ketoacidosis without coma Condition: Fair Critical Care Time: No
[2018-02-15] MEDS ORDERED: Sodium Chloride 0.9% 1000 ML 1,000 ML ONE ×3 (14:28→15:50)
[2018-02-15] MEDS ORDERED: BABY ASPIRIN 81 MG CHEW ONE (14:28)
[2018-02-15 14:37] LABS: Granulocyte Absolute (ANC) 8.87 (1.4-6.9); Hematocrit 44.2 % (42-50); Hemoglobin 15.7 gm/dl (12.5-18.0); Mean Cell Volume 79.6 fl (78-100); Mean Corpuscular Hemoglobin 28.3 pg (26-32); Mean Corpuscular Hgb Concent. 35.5 g/dl (32-36); Mean Platelet Volume 10.3 fl (6-9.5); Platelet Count 288 K/mm3 (150-450); Red Blood Count 5.55 M/mm3 (4.1-5.6); Red Cell Distribution Width 14.2 % (11.5-14.0); White Blood Count 10.1 K/mm3 (4.0-10.5)
[2018-02-15 14:39] LABS: INR 0.95 (0.8-3.0)
[2018-02-15 14:42] LABS: PTT 30.7 SECONDS (24.1-36.1)
[2018-02-15 14:44] LABS: ALBUMIN 4.7 g/dL (3.5-5.0); ALKALINE PHOSPHATASE 103 U/L (38-126); ANION GAP 26.1 MEQ/L (5-15); BLOOD UREA NITROGEN 11 mg/dL (9-20); CHLORIDE 96 mmol/L (98-107); Calcium 9.7 mg/dL (8.4-10.2); Creatinine 1 0.64 mg/dL (0.66-1.25); Potassium 3.8 mmol/L (3.5-5.1); SGOT/AST 82 U/L (17-59); SODIUM 134 mmol/L (137-145); Total Protein 7.7 g/dL (6.3-8.2)
[2018-02-15 14:51] LABS: Carbon Dioxide 15 mmol/L (22-30); Glucose 507 mg/dL (74-106)
[2018-02-15] MEDS ORDERED: ROCEPHIN 1 Gm-D5w 50 ml Bag** 1 G/50 ML IVPB IV STA (15:16)
[2018-02-15 15:30] LABS: Appearance CLEAR (CLEAR); Bilirubin NEGATIVE (NEGATIVE); Blood NEGATIVE Ery/ul (0-5); Glucose 1000 mg/dL (NEGATIVE); Ketones NEGATIVE (NEGATIVE); Leukocyte Esterase NEGATIVE (NEGATIVE); Nitrite NEGATIVE (NEGATIVE); Protein,Urine Dip NEGATIVE (Negative); Urobilinogen NORMAL mg/dL (0-1)
[2018-02-15 15:43] LABS: BAND 6 % (0.0-2.0); Lymphocytes 20 % (24-44); Monocyte 4 % (0.0-12.0); Neutrophils 70 % (36.-66.); Platelet Estimate NORMAL (NORMAL); Total Cells Counted 100
[2018-02-15 15:44] LABS: SGPT/ALT 75 U/L (0-50)
[2018-02-15] MEDS ORDERED: ROCEPHIN 1 Gm-D5w 50 ml Bag** 1 G/50 ML IVPB IV ONE (15:51)
[2018-02-15] MEDS ORDERED: K-LYTE 25 MEQ PO ONE (15:58)
[2018-02-15] MEDS ORDERED: NOVOLIN R INSULIN (FOR DRIPS)** 100 UNITS in Sodium Chloride 0.9% 100 ML IVPB 100 ML IV SCH (16:00)
[2018-02-15] MEDS ORDERED: Zofran 4 MG/2 ML VIAL IV ONE (16:07)
[2018-02-15] MEDS ORDERED: MORPHINE SULFATE 4 MG INJ IV ONE (16:07)
[2018-02-15] MEDS ORDERED: Zofran 4 MG/2 ML VIAL ONE (16:11)
[2018-02-15] MEDS ORDERED: MORPHINE SULFATE 4 MG INJ ONE (16:11)
[2018-02-15] MEDS ORDERED: K-LYTE 25 MEQ ONE (16:11)
[2018-02-15] MEDS ORDERED: Sodium Chloride 0.9% 100 ML IVPB 100 ML IV ONE (16:43)
[2018-02-15] MEDS ORDERED: NovoLIN R ONE (16:43)
[2018-02-15] MEDS ORDERED: Sodium Chloride 0.9% 1000 ML 1,000 ML IV SCH (19:15)
[2018-02-15 19:54] LABS: BLOOD UREA NITROGEN 8 mg/dL (9-20); CHLORIDE 102 mmol/L (98-107); Carbon Dioxide 20 mmol/L (22-30); Creatinine 1 0.53 mg/dL (0.66-1.25); Glucose 238 mg/dL (74-106); Potassium 4.5 mmol/L (3.5-5.1); SODIUM 135 mmol/L (137-145)
[2018-02-15] MEDS ORDERED: Lantus Insulin SQ ONE (21:30)
--- NOTE | 2018-02-15 21:36 | XRAY ---
Indication: Chest pain. Elevated d-dimer. Multiple contiguous axial images obtained through the chest using 100 cc Isovue 370 contrast and PE protocol. Comparison: October 17, 2016. There is satisfactory opacification of the pulmonary arteries to include the lobar and segmental branches. Again no filling defect or pulmonary embolus. Heart is not enlarged. Aorta is normal in course and caliber. Stable right paratracheal calcified nodes. No pathologic mediastinal/hilar lymphadenopathy. New right-sided Groshong catheter. Examination of the lung parenchyma demonstrates stable inferior right upper lobe calcified granuloma. 2 new sub-5 mm noncalcified peripheral nodule seen in the posterior lateral right lower lobe. No infiltrate or effusion. Bony thorax intact. Limited upper abdomen again demonstrates fatty liver and increasing 17.6 cm splenomegaly. Impression: 1. Again negative pulmonary embolus. No acute cardiopulmonary abnormalities. 2. Stable mediastinal and right upper lobe calcified granulomas. New right lower lobe peripheral noncalcified micronodules probably granulomatous. 3. Stable fatty liver and increasing splenomegaly. Comment: Preliminary interpretation was made by [facility]. No discrepancy. CTDI 23.69
--- NOTE | 2018-02-15 21:38 | XRAY ---
Indication: Chest pain. Comparison: June 25, 2017. Portable chest less inflated today and remains clear. Heart and mediastinal structures within normal limits with stable right-sided Groshong catheter. Bony thorax intact. No new/acute findings.
[2018-02-15] MEDS ORDERED: Nitrostat 0.4 MG Tablet SL PRN (21:40)
[2018-02-15] MEDS: Sodium Chloride 0.9% W/ 20 mEq KCl/LITER 1,000 ML IV SCH (21:42)
[2018-02-15] MEDS ORDERED: Flonase NASAL NS ONE (21:52)
[2018-02-15] MEDS ORDERED: NAPROSYN 375 MG PO SCH (22:00)
[2018-02-15] MEDS ORDERED: Toprol Xl 100 MG PO SCH (22:00)
[2018-02-15] MEDS ORDERED: Flonase NASAL NS SCH (22:00)
[2018-02-15] MEDS ORDERED: Klonopin 0.5 MG PO SCH (22:00)
[2018-02-15] MEDS: Advair Hfa 230/21 Mcg COMMON CANISTER IH SCH (22:26)
[2018-02-15] MEDS ORDERED: PROVENTIL 2.5 MG/3 ML NEB IH PRN (22:34)
[2018-02-15] MEDS ORDERED: NORCO 5/325 MG PO PRN (23:07)
[2018-02-15] MEDS: NovoLOG Insulin SQ PRN (23:41)
[2018-02-16] MEDS: NovoLOG Insulin SQ PRN ×2 (04:11→08:08)
[2018-02-16 04:23] LABS: ANION GAP 14.9 MEQ/L (5-15); BLOOD UREA NITROGEN 6 mg/dL (9-20); CHLORIDE 100 mmol/L (98-107); Calcium 8.6 mg/dL (8.4-10.2); Carbon Dioxide 26 mmol/L (22-30); Creatinine 1 0.55 mg/dL (0.66-1.25); Glucose 195 mg/dL (74-106); SODIUM 138 mmol/L (137-145)
[2018-02-16] MEDS: Sodium Chloride 0.9% W/ 20 mEq KCl/LITER 1,000 ML IV SCH (06:01)
[2018-02-16] MEDS: Advair Hfa 230/21 Mcg COMMON CANISTER IH SCH (06:29)
[2018-02-16 07:18] LABS: Hematocrit 39.2 % (42-50); Hemoglobin 13.3 gm/dl (12.5-18.0); Mean Cell Volume 82.7 fl (78-100); Mean Corpuscular Hemoglobin 28.1 pg (26-32); Mean Corpuscular Hgb Concent. 33.9 g/dl (32-36); Mean Platelet Volume 9.5 fl (6-9.5); Platelet Count 173 K/mm3 (150-450); Red Blood Count 4.74 M/mm3 (4.1-5.6); Red Cell Distribution Width 14.3 % (11.5-14.0); White Blood Count 6.1 K/mm3 (4.0-10.5)
[2018-02-16 07:55] LABS: ANION GAP 13.3 MEQ/L (5-15); BLOOD UREA NITROGEN 6 mg/dL (9-20); CHLORIDE 99 mmol/L (98-107); Calcium 8.6 mg/dL (8.4-10.2); Carbon Dioxide 30 mmol/L (22-30); Creatinine 1 0.64 mg/dL (0.66-1.25); Glucose 221 mg/dL (74-106); Potassium 4.2 mmol/L (3.5-5.1); SODIUM 138 mmol/L (137-145)
[2018-02-16 08:09] VITALS: BP 114/78; PULSE 85
--- NOTE | 2018-02-16 09:44 | PCM.SSS ---
History of Present Illness - Chief Complaint Chief Complaint: chest pain,hyperglycemia,DKA History of Present Illness: is a 32 year old male with type 2 diabetes who came to ER complaining of chest pain and feeling poorly, blood glucose was over 500. last a1c >9% he states sugars are even higher than usual this week because he has been eating a lot of muffins. CO has been ruled out, no PE on CTA. He has no pain today, sugars are well controlled with sliding scale insulin. - Review of Systems Constitutional: No Fever, No Chills Respiratory: No Cough, No Short Of Breath Cardiac: Chest Pain (resolved) Abdominal/Gastrointestinal: No Abdominal Pain, No Nausea, No Vomiting, No Diarrhea Genitourinary Symptoms: No Dysuria Skin: No Rash All Other Systems: Reviewed and Negative Medications & Allergies Home Medications: Home Medication List Divalproex Sodium [Depakote] 1,500 mg PO HS 10/17/16 [History Confirmed 02/15/18 ] Duloxetine HCl [Cymbalta] 120 mg PO DAILY 10/17/16 [History Confirmed 02/15/18] Losartan Potassium [Cozaar] 100 mg PO DAILY 10/17/16 [History Confirmed 02/15/18 ] clonazePAM [Klonopin] 1 mg PO TID 10/17/16 [History Confirmed 02/15/18] Nitroglycerin 0.4 mg Tablet [Nitrostat 0.4 MG Tablet] 0.4 mg SL Q5MIN PRN MR X 3 PRN #30 bottle 10/18/16 [Rx Confirmed 02/15/18] Furosemide 40 mg [Lasix 40 MG] 40 mg PO DAILY 12/28/16 [History Confirmed 02/15/18] Potassium Chloride 8 meq PO DAILY 12/28/16 [History Confirmed 02/15/18] Metformin HCl 500 mg [Glucophage 500 MG] 500 mg PO BID #30 tablet [Rx Confirmed 02/15/18] Metoprolol Succinate 50 mg [Toprol Xl 50 MG] 100 mg PO BID 03/28/17 [ History Confirmed 02/15/18] l Gasseri/B Bifidum/B Longum [[employer] Capsule] 1 each PO TID [History Confirmed 02/15/18] Albuterol Sulfate [Ventolin Hfa] 3 puffs IH Q6HPRN PRN 12/12/17 [History Confirmed 02/15/18] Amlodipine Besylate 5 mg PO DAILY 12/12/17 [History Confirmed 02/15/18] Aspirin 81 mg PO DAILY 12/12/17 [History Confirmed 02/15/18] Cetirizine HCl [Zyrtec] 10 mg PO DAILY 12/12/17 [History Confirmed 02/15/18] Montelukast Sodium 10 mg [Singulair 10 MG] 10 mg PO DAILY 12/12/17 [History Confirmed 02/15/18] Naproxen 375 mg [Naprosyn 375 mg] 375 mg PO BID 12/12/17 [History Confirmed 02/15/18] Sitagliptin Phosphate [Januvia] 25 mg PO DAILY 12/12/17 [History Confirmed 02/15] Fluticasone Propionate [Flonase Allergy Relief] 1 spray NS BID 02/15/18 [ History Confirmed 02/15/18] Fluticasone/Salmeterol 500/50* [Advair 500-50 Diskus] 2 each IH BID 02/15/18 [History Confirmed 02/15/18] Canagliflozin [Invokana] 100 mg PO DAILY #30 tablet 02/16/18 [Rx] Allergies/Adverse Reactions: Allergies Allergy/AdvReac Type Severity Reaction Status Date / Time turmeric Allergy Anaphylactic Verified 02/15/18 18:38 Reaction - Past Medical History Past Medical History: Yes Neurological History: No Pertinent History ENT History: No Pertinent History Cardiac History: Arrhythmia, High Cholesterol, Hypertension Respiratory History: Asthma, Bronchitis Endocrine Medical History: Diabetes Type II, Other Musculoskelatal History: Fractures, Osteoarthritis GI Medical History: Gallbladder Disease, Hernia, Other History: No Pertinent History Pyscho-Social History: Anxiety, Depression, Other Male Reproductive Disorders: No Pertinent History Comment: liver disease, Hemachromatosis. Pt denies COPD but does have hx of asthmatic bronchitis. Tachycardia - Past Surgical History Past Surgical History: Yes Neuro Surgical History: No Pertinent History Cardiac History: No Pertinent History Respiratory Surgery: No Pertinent History GI Surgical History: Cholecystectomy, Hernia Repair Genitourinary Surgical Hx: No Pertinent History Musculskeletal Surgical Hx: Other Male Surgical History: No Pertinent History Other Surgical History: central line Gro[place]ong CV catheterx8 - Social History Smoking Status: Never smoker Exposure to second hand smoke: Yes Alcohol: None Drug Use: none - Physical Exam Vital Signs: Vital Signs - 24 hr Temp Pulse Pulse Resp BP BP Pulse Ox 02/16/18 08:00 98.2 F 85 19 114/78 94 L 02/16/18 06:30 87 18 93 L 02/16/18 04:00 98.4 F 78 23 114/76 93 L 02/16/18 00:01 87 02/16/18 00:00 98.2 F 89 24 143/81 92 L 02/15/18 22:13 95 H 18 97 02/15/18 22:00 98.6 F 91 H 18 117/83 96 02/15/18 20:30 98.8 F 97 H 18 135/91 95 02/15/18 20:00 98.6 F 95 H 20 137/88 94 L 02/15/18 19:54 98.2 F 105 H 18 130/84 90 L 02/15/18 19:30 98.5 F 94 H 18 120/90 94 L 02/15/18 19:11 98.7 F 96 H 18 132/76 93 L 02/15/18 18:56 98.7 F 99 H 20 119/81 93 L 02/15/18 18:41 98.8 F 95 H 31 H 118/81 02/15/18 18:31 98.8 F 102 H 39 H 118/75 95 02/15/18 18:13 98.8 F 130 H 31 H 130/84 90 L 02/15/18 17:46 98 02/15/18 17:23 104 H 18 137/74 95 02/15/18 15:59 112 H 22 133/79 95 02/15/18 14:50 116 H 02/15/18 14:48 114 H 18 152/86 96 02/15/18 14:01 110 H 02/15/18 13:58 97.2 F 116 H 24 140/89 98 Oxygen-Last 24 hours O2 Percentage 2 Liters = 28% General Appearance: no apparent distress, obese Neurologic Exam: alert, oriented x 3 Neck Exam: normal inspection, non-tender, supple, full range of motion Respiratory Exam: normal breath sounds, lungs clear, No respiratory distress Cardiovascular Exam: regular rate/rhythm, normal heart sounds, normal peripheral pulses Gastrointestinal/Abdomen Exam: soft, normal bowel sounds, No tenderness, No mass Skin Exam: normal color, warm, dry, No rash Results - Labs Lab/Micro Results: Accuchecks Date 02/16/18 Date 02/16/18 Date 02/15/18 Date 02/15/18 Date 02/15/18 Date 02/15/18 Time 08:00 Time 04:16 Time 23:39 Time 21:17 Time 20:29 Time 18:13 Accucheck Value: 220 Accucheck Value: 195 Accucheck Value: 181 Accucheck Value: 162 Accucheck Value: 230 Accucheck Value: 263 Accucheck Value: 329 Accucheck Value: 330 Accucheck Value: 407 Accucheck Value: 485 Lab Results-Last 24 Hours 02/15/18 02/15/18 02/15/18 Range/Units 14:10 14:10 14:10 WBC 10.1 (4.0-10.5) K/mm3 RBC 5.55 (4.1-5.6) M/mm3 Hgb 15.7 (12.5-18.0) gm/dl Hct 44.2 (42-50) % MCV 79.6 (78-100) fl MCH 28.3 (26-32) pg MCHC 35.5 (32-36) g/dl RDW 14.2 H (11.5-14.0) % Plt Count 288 (150-450) K/mm3 MPV 10.3 H (6-9.5) fl Absolute Granulocytes 8.87 H (1.4-6.9) Segmented Neutrophils 70 H (36.-66.) % Band Neutrophils 6 H (0.0-2.0) % Lymphocytes (Manual) 20 L (24-44) % Monocytes (Manual) 4 (0.0-12.0) % Platelet Estimate NORMAL (NORMAL) RBC Morphology NORMAL PT 11.0 (8.83-12.87) SECONDS INR 0.95 (0.8-3.0) APTT 30.7 (24.1-36.1) SECONDS D-Dimer 841 H* (215-500) ng/mL pO2/FiO2 Ratio % VBG pH (7.32-7.42) VBG pCO2 at Pat Temp (42-55) mm/Hg VBG pO2 at Pat Temp (25-40) mm/Hg VBG HCO3 (22-28) meq/L VBG O2 Sat (Mitzy) (95-100) VBG Base Excess (-2.0-2.0) VBG Hemoglobin VBG Carboxyhemoglobin (0.0-6.9) % T HGB POC Potassium (3.5-5.1) Sodium 134 L (137-145) mmol/L Potassium 3.8 (3.5-5.1) mmol/L Chloride 96 L (98-107) mmol/L Carbon Dioxide 15 L* (22-30) mmol/L Anion Gap 26.1 H (5-15) MEQ/L BUN 11 (9-20) mg/dL Creatinine 0.64 L (0.66-1.25) mg/dL Estimated GFR > 60.0 ML/MIN Glucose 507 H* (74-106) mg/dL Calcium 9.7 (8.4-10.2) mg/dL Total Bilirubin 0.70 (0.2-1.3) mg/dL AST 82 H (17-59) U/L ALT 75 H (0-50) U/L Alkaline Phosphatase 103 (38-126) U/L Troponin I (0.000-0.034) ng/mL Serum Total Protein 7.7 (6.3-8.2) g/dL Albumin 4.7 (3.5-5.0) g/dL Ur Collection Type Urine Color (YELLOW) Urine Appearance (CLEAR) Urine pH (5-6) Ur Specific Marlin (1.005-1.025) Urine Protein (Negative) Urine Ketones (NEGATIVE) Urine Blood (0-5) Godfrey/ul Urine Nitrite (NEGATIVE) Urine Bilirubin (NEGATIVE) Urine Urobilinogen (0-1) mg/dL Ur Leukocyte Esterase (NEGATIVE) Urine Culture Reflexed (NO) Urine Glucose (NEGATIVE) mg/dL Specimen Received 02/15/18 02/15/18 02/15/18 Range/Units 14:10 14:20 15:10 WBC (4.0-10.5) K/mm3 RBC (4.1-5.6) M/mm3 Hgb (12.5-18.0) gm/dl Hct (42-50) % MCV (78-100) fl MCH (26-32) pg MCHC (32-36) g/dl RDW (11.5-14.0) % Plt Count (150-450) K/mm3 MPV (6-9.5) fl Absolute Granulocytes (1.4-6.9) Segmented Neutrophils (36.-66.) % Band Neutrophils (0.0-2.0) % Lymphocytes (Manual) (24-44) % Monocytes (Manual) (0.0-12.0) % Platelet Estimate (NORMAL) RBC Morphology PT (8.83-12.87) SECONDS INR (0.8-3.0) APTT (24.1-36.1) SECONDS D-Dimer (215-500) ng/mL pO2/FiO2 Ratio 21.0 % VBG pH 7.40 (7.32-7.42) VBG pCO2 at Pat Temp 27 L (42-55) mm/Hg VBG pO2 at Pat Temp 73 H (25-40) mm/Hg VBG HCO3 16.7 L* (22-28) meq/L VBG O2 Sat (Mitzy) 97.7 (95-100) VBG Base Excess -6.3 L (-2.0-2.0) VBG Hemoglobin 16.1 VBG Carboxyhemoglobin 3.0 (0.0-6.9) % T HGB POC Potassium 3.7 (3.5-5.1) Sodium (137-145) mmol/L Potassium (3.5-5.1) mmol/L Chloride (98-107) mmol/L Carbon Dioxide (22-30) mmol/L Anion Gap (5-15) MEQ/L BUN (9-20) mg/dL Creatinine (0.66-1.25) mg/dL Estimated GFR ML/MIN Glucose (74-106) mg/dL Calcium (8.4-10.2) mg/dL Total Bilirubin (0.2-1.3) mg/dL AST (17-59) U/L ALT (0-50) U/L Alkaline Phosphatase (38-126) U/L Troponin I < 0.012 (0.000-0.034) ng/mL Serum Total Protein (6.3-8.2) g/dL Albumin (3.5-5.0) g/dL Ur Collection Type CLEAN CATCH Urine Color YELLOW (YELLOW) Urine Appearance CLEAR (CLEAR) Urine pH 5.0 (5-6) Ur Specific Marlin 1.020 (1.005-1.025) Urine Protein NEGATIVE (Negative) Urine Ketones NEGATIVE (NEGATIVE) Urine Blood NEGATIVE (0-5) Godfrey/ul Urine Nitrite NEGATIVE (NEGATIVE) Urine Bilirubin NEGATIVE (NEGATIVE) Urine Urobilinogen NORMAL (0-1) mg/dL Ur Leukocyte Esterase NEGATIVE (NEGATIVE) Urine Culture Reflexed NO (NO) Urine Glucose 1000 (NEGATIVE) mg/dL Specimen Received 02-15-18 1500 02/15/18 02/15/18 02/15/18 Range/Units 17:45 19:30 19:30 WBC (4.0-10.5) K/mm3 RBC (4.1-5.6) M/mm3 Hgb (12.5-18.0) gm/dl Hct (42-50) % MCV (78-100) fl MCH (26-32) pg MCHC (32-36) g/dl RDW (11.5-14.0) % Plt Count (150-450) K/mm3 MPV (6-9.5) fl Absolute Granulocytes (1.4-6.9) Segmented Neutrophils (36.-66.) % Band Neutrophils (0.0-2.0) % Lymphocytes (Manual) (24-44) % Monocytes (Manual) (0.0-12.0) % Platelet Estimate (NORMAL) RBC Morphology PT (8.83-12.87) SECONDS INR (0.8-3.0) APTT (24.1-36.1) SECONDS D-Dimer (215-500) ng/mL pO2/FiO2 Ratio % VBG pH (7.32-7.42) VBG pCO2 at Pat Temp (42-55) mm/Hg VBG pO2 at Pat Temp (25-40) mm/Hg VBG HCO3 (22-28) meq/L VBG O2 Sat (Mitzy) (95-100) VBG Base Excess (-2.0-2.0) VBG Hemoglobin VBG Carboxyhemoglobin (0.0-6.9) % T HGB POC Potassium (3.5-5.1) Sodium 135 L 135 L (137-145) mmol/L Potassium 4.5 4.5 (3.5-5.1) mmol/L Chloride 102 102 (98-107) mmol/L Carbon Dioxide 20 L 20 L (22-30) mmol/L Anion Gap 17.0 H 17.0 H (5-15) MEQ/L BUN 8 L 8 L (9-20) mg/dL Creatinine 0.53 L 0.53 L (0.66-1.25) mg/dL Estimated GFR > 60.0 > 60.0 ML/MIN Glucose 238 H 238 H (74-106) mg/dL Calcium 9.0 9.0 (8.4-10.2) mg/dL Total Bilirubin (0.2-1.3) mg/dL AST (17-59) U/L ALT (0-50) U/L Alkaline Phosphatase (38-126) U/L Troponin I < 0.012 (0.000-0.034) ng/mL Serum Total Protein (6.3-8.2) g/dL Albumin (3.5-5.0) g/dL Ur Collection Type Urine Color (YELLOW) Urine Appearance (CLEAR) Urine pH (5-6) Ur Specific Marlin (1.005-1.025) Urine Protein (Negative) Urine Ketones (NEGATIVE) Urine Blood (0-5) Godfrey/ul Urine Nitrite (NEGATIVE) Urine Bilirubin (NEGATIVE) Urine Urobilinogen (0-1) mg/dL Ur Leukocyte Esterase (NEGATIVE) Urine Culture Reflexed (NO) Urine Glucose (NEGATIVE) mg/dL Specimen Received 02/15/18 02/15/18 02/16/18 Range/Units 20:00 23:30 02:45 WBC (4.0-10.5) K/mm3 RBC (4.1-5.6) M/mm3 Hgb (12.5-18.0) gm/dl Hct (42-50) % MCV (78-100) fl MCH (26-32) pg MCHC (32-36) g/dl RDW (11.5-14.0) % Plt Count (150-450) K/mm3 MPV (6-9.5) fl Absolute Granulocytes (1.4-6.9) Segmented Neutrophils (36.-66.) % Band Neutrophils (0.0-2.0) % Lymphocytes (Manual) (24-44) % Monocytes (Manual) (0.0-12.0) % Platelet Estimate (NORMAL) RBC Morphology PT (8.83-12.87) SECONDS INR (0.8-3.0) APTT (24.1-36.1) SECONDS D-Dimer (215-500) ng/mL pO2/FiO2 Ratio % VBG pH (7.32-7.42) VBG pCO2 at Pat Temp (42-55) mm/Hg VBG pO2 at Pat Temp (25-40) mm/Hg VBG HCO3 (22-28) meq/L VBG O2 Sat (Mitzy) (95-100) VBG Base Excess (-2.0-2.0) VBG Hemoglobin VBG Carboxyhemoglobin (0.0-6.9) % T HGB POC Potassium (3.5-5.1) Sodium (137-145) mmol/L Potassium (3.5-5.1) mmol/L Chloride (98-107) mmol/L Carbon Dioxide (22-30) mmol/L Anion Gap (5-15) MEQ/L BUN (9-20) mg/dL Creatinine (0.66-1.25) mg/dL Estimated GFR ML/MIN Glucose (74-106) mg/dL Calcium (8.4-10.2) mg/dL Total Bilirubin (0.2-1.3) mg/dL AST (17-59) U/L ALT (0-50) U/L Alkaline Phosphatase (38-126) U/L Troponin I < 0.012 < 0.012 < 0.012 (0.000-0.034) ng/mL Serum Total Protein (6.3-8.2) g/dL Albumin (3.5-5.0) g/dL Ur Collection Type Urine Color (YELLOW) Urine Appearance (CLEAR) Urine pH (5-6) Ur Specific Marlin (1.005-1.025) Urine Protein (Negative) Urine Ketones (NEGATIVE) Urine Blood (0-5) Godfrey/ul Urine Nitrite (NEGATIVE) Urine Bilirubin (NEGATIVE) Urine Urobilinogen (0-1) mg/dL Ur Leukocyte Esterase (NEGATIVE) Urine Culture Reflexed (NO) Urine Glucose (NEGATIVE) mg/dL Specimen Received 02/16/18 02/16/18 02/16/18 Range/Units 03:30 07:00 07:00 WBC 6.1 (4.0-10.5) K/mm3 RBC 4.74 (4.1-5.6) M/mm3 Hgb 13.3 (12.5-18.0) gm/dl Hct 39.2 L (42-50) % MCV 82.7 (78-100) fl MCH 28.1 (26-32) pg MCHC 33.9 (32-36) g/dl RDW 14.3 H (11.5-14.0) % Plt Count 173 (150-450) K/mm3 MPV 9.5 (6-9.5) fl Absolute Granulocytes (1.4-6.9) Segmented Neutrophils (36.-66.) % Band Neutrophils (0.0-2.0) % Lymphocytes (Manual) (24-44) % Monocytes (Manual) (0.0-12.0) % Platelet Estimate (NORMAL) RBC Morphology PT (8.83-12.87) SECONDS INR (0.8-3.0) APTT (24.1-36.1) SECONDS D-Dimer (215-500) ng/mL pO2/FiO2 Ratio % VBG pH (7.32-7.42) VBG pCO2 at Pat Temp (42-55) mm/Hg VBG pO2 at Pat Temp (25-40) mm/Hg VBG HCO3 (22-28) meq/L VBG O2 Sat (Mitzy) (95-100) VBG Base Excess (-2.0-2.0) VBG Hemoglobin VBG Carboxyhemoglobin (0.0-6.9) % T HGB POC Potassium (3.5-5.1) Sodium 138 138 (137-145) mmol/L Potassium 4.0 4.2 (3.5-5.1) mmol/L Chloride 100 99 (98-107) mmol/L Carbon Dioxide 26 30 (22-30) mmol/L Anion Gap 14.9 13.3 (5-15) MEQ/L BUN 6 L 6 L (9-20) mg/dL Creatinine 0.55 L 0.64 L (0.66-1.25) mg/dL Estimated GFR > 60.0 > 60.0 ML/MIN Glucose 195 H 221 H (74-106) mg/dL Calcium 8.6 8.6 (8.4-10.2) mg/dL Total Bilirubin (0.2-1.3) mg/dL AST (17-59) U/L ALT (0-50) U/L Alkaline Phosphatase (38-126) U/L Troponin I (0.000-0.034) ng/mL Serum Total Protein (6.3-8.2) g/dL Albumin (3.5-5.0) g/dL Ur Collection Type Urine Color (YELLOW) Urine Appearance (CLEAR) Urine pH (5-6) Ur Specific Marlin (1.005-1.025) Urine Protein (Negative) Urine Ketones (NEGATIVE) Urine Blood (0-5) Godfrey/ul Urine Nitrite (NEGATIVE) Urine Bilirubin (NEGATIVE) Urine Urobilinogen (0-1) mg/dL Ur Leukocyte Esterase (NEGATIVE) Urine Culture Reflexed (NO) Urine Glucose (NEGATIVE) mg/dL Specimen Received Accuchecks Date 02/16/18 Date 02/16/18 Date 02/15/18 Date 02/15/18 Date 02/15/18 Date 02/15/18 Time 08:00 Time 04:16 Time 23:39 Time 21:17 Time 20:29 Time 18:13 Accucheck Value: 220 Accucheck Value: 195 Accucheck Value: 181 Accucheck Value: 162 Accucheck Value: 230 Accucheck Value: 263 Accucheck Value: 329 Accucheck Value: 330 Accucheck Value: 407 Accucheck Value: 485 - Radiology Impressions Radiology Exams & Impressions: Radiology Procedures Category Date Time Status CHEST 1 VIEW (PORTABLE) Stat Exams 02/15/18 14:16 Completed CHEST WITH CONTRAST [CT] Stat Exams 02/15/18 15:59 Completed - Other Procedures and Tests Respiratory Therapy 02/15/18 22:13 Respiratory Therapy Assessment DAILY Assessment/Plan (1) Chest pain Current Visit: Yes Status: Acute Qualifiers: Chest pain type: unspecified Qualified Code(s): R07.9 - Chest pain, unspecified Assessment & Plan: CO ruled out Code(s): R07.9 - CHEST PAIN, UNSPECIFIED (2) Nonketotic hyperglycinemia Current Visit: Yes Status: Acute Assessment & Plan: add invokana to current meds, f/u with PCP Dr Rocha Code(s): E72.51 - NON-KETOTIC HYPERGLYCINEMIA Hospital Summary - Vitals & Intake/Output Vital Signs: Vital Signs Temperature 98.2 F 02/16/18 08:00 Pulse Rate 85 02/16/18 08:00 Respiratory Rate 19 02/16/18 08:00 Blood Pressure 114/78 02/16/18 08:00 O2 Sat by Pulse Oximetry 94 L 02/16/18 08:00 Oxygen-Last Documented O2 Percentage 2 Liters = 28% Intake & Output: Intake & Output 02/13/18 02/14/18 02/15/18 02/16/18 11:59 11:59 11:59 11:59 Intake Total 2437 Output Total 1100 Balance 1337 Weight 156 kg - Lab Result Diagrams: 02/16/18 07:00 02/16/18 07:00 Lab Results-Last 24 Hrs: Accuchecks Date 02/16/18 Date 02/16/18 Date 02/15/18 Date 02/15/18 Date 02/15/18 Date 02/15/18 Time 08:00 Time 04:16 Time 23:39 Time 21:17 Time 20:29 Time 18:13 Accucheck Value: 220 Accucheck Value: 195 Accucheck Value: 181 Accucheck Value: 162 Accucheck Value: 230 Accucheck Value: 263 Accucheck Value: 329 Accucheck Value: 330 Accucheck Value: 407 Accucheck Value: 485 Lab Results-Last 24 Hours 02/15/18 02/15/18 02/15/18 Range/Units 14:10 14:10 14:10 WBC 10.1 (4.0-10.5) K/mm3 RBC 5.55 (4.1-5.6) M/mm3 Hgb 15.7 (12.5-18.0) gm/dl Hct 44.2 (42-50) % MCV 79.6 (78-100) fl MCH 28.3 (26-32) pg MCHC 35.5 (32-36) g/dl RDW 14.2 H (11.5-14.0) % Plt Count 288 (150-450) K/mm3 MPV 10.3 H (6-9.5) fl Absolute Granulocytes 8.87 H (1.4-6.9) Segmented Neutrophils 70 H (36.-66.) % Band Neutrophils 6 H (0.0-2.0) % Lymphocytes (Manual) 20 L (24-44) % Monocytes (Manual) 4 (0.0-12.0) % Platelet Estimate NORMAL (NORMAL) RBC Morphology NORMAL PT 11.0 (8.83-12.87) SECONDS INR 0.95 (0.8-3.0) APTT 30.7 (24.1-36.1) SECONDS D-Dimer 841 H* (215-500) ng/mL pO2/FiO2 Ratio % VBG pH (7.32-7.42) VBG pCO2 at Pat Temp (42-55) mm/Hg VBG pO2 at Pat Temp (25-40) mm/Hg VBG HCO3 (22-28) meq/L VBG O2 Sat (Mitzy) (95-100) VBG Base Excess (-2.0-2.0) VBG Hemoglobin VBG Carboxyhemoglobin (0.0-6.9) % T HGB POC Potassium (3.5-5.1) Sodium 134 L (137-145) mmol/L Potassium 3.8 (3.5-5.1) mmol/L Chloride 96 L (98-107) mmol/L Carbon Dioxide 15 L* (22-30) mmol/L Anion Gap 26.1 H (5-15) MEQ/L BUN 11 (9-20) mg/dL Creatinine 0.64 L (0.66-1.25) mg/dL Estimated GFR > 60.0 ML/MIN Glucose 507 H* (74-106) mg/dL Calcium 9.7 (8.4-10.2) mg/dL Total Bilirubin 0.70 (0.2-1.3) mg/dL AST 82 H (17-59) U/L ALT 75 H (0-50) U/L Alkaline Phosphatase 103 (38-126) U/L Troponin I (0.000-0.034) ng/mL Serum Total Protein 7.7 (6.3-8.2) g/dL Albumin 4.7 (3.5-5.0) g/dL Ur Collection Type Urine Color (YELLOW) Urine Appearance (CLEAR) Urine pH (5-6) Ur Specific Marlin (1.005-1.025) Urine Protein (Negative) Urine Ketones (NEGATIVE) Urine Blood (0-5) Godfrey/ul Urine Nitrite (NEGATIVE) Urine Bilirubin (NEGATIVE) Urine Urobilinogen (0-1) mg/dL Ur Leukocyte Esterase (NEGATIVE) Urine Culture Reflexed (NO) Urine Glucose (NEGATIVE) mg/dL Specimen Received 02/15/18 02/15/18 02/15/18 Range/Units 14:10 14:20 15:10 WBC (4.0-10.5) K/mm3 RBC (4.1-5.6) M/mm3 Hgb (12.5-18.0) gm/dl Hct (42-50) % MCV (78-100) fl MCH (26-32) pg MCHC (32-36) g/dl RDW (11.5-14.0) % Plt Count (150-450) K/mm3 MPV (6-9.5) fl Absolute Granulocytes (1.4-6.9) Segmented Neutrophils (36.-66.) % Band Neutrophils (0.0-2.0) % Lymphocytes (Manual) (24-44) % Monocytes (Manual) (0.0-12.0) % Platelet Estimate (NORMAL) RBC Morphology PT (8.83-12.87) SECONDS INR (0.8-3.0) APTT (24.1-36.1) SECONDS D-Dimer (215-500) ng/mL pO2/FiO2 Ratio 21.0 % VBG pH 7.40 (7.32-7.42) VBG pCO2 at Pat Temp 27 L (42-55) mm/Hg VBG pO2 at Pat Temp 73 H (25-40) mm/Hg VBG HCO3 16.7 L* (22-28) meq/L VBG O2 Sat (Mitzy) 97.7 (95-100) VBG Base Excess -6.3 L (-2.0-2.0) VBG Hemoglobin 16.1 VBG Carboxyhemoglobin 3.0 (0.0-6.9) % T HGB POC Potassium 3.7 (3.5-5.1) Sodium (137-145) mmol/L Potassium (3.5-5.1) mmol/L Chloride (98-107) mmol/L Carbon Dioxide (22-30) mmol/L Anion Gap (5-15) MEQ/L BUN (9-20) mg/dL Creatinine (0.66-1.25) mg/dL Estimated GFR ML/MIN Glucose (74-106) mg/dL Calcium (8.4-10.2) mg/dL Total Bilirubin (0.2-1.3) mg/dL AST (17-59) U/L ALT (0-50) U/L Alkaline Phosphatase (38-126) U/L Troponin I < 0.012 (0.000-0.034) ng/mL Serum Total Protein (6.3-8.2) g/dL Albumin (3.5-5.0) g/dL Ur Collection Type CLEAN CATCH Urine Color YELLOW (YELLOW) Urine Appearance CLEAR (CLEAR) Urine pH 5.0 (5-6) Ur Specific Marlin 1.020 (1.005-1.025) Urine Protein NEGATIVE (Negative) Urine Ketones NEGATIVE (NEGATIVE) Urine Blood NEGATIVE (0-5) Godfrey/ul Urine Nitrite NEGATIVE (NEGATIVE) Urine Bilirubin NEGATIVE (NEGATIVE) Urine Urobilinogen NORMAL (0-1) mg/dL Ur Leukocyte Esterase NEGATIVE (NEGATIVE) Urine Culture Reflexed NO (NO) Urine Glucose 1000 (NEGATIVE) mg/dL Specimen Received 02-15-18 1500 02/15/18 02/15/18 02/15/18 Range/Units 17:45 19:30 19:30 WBC (4.0-10.5) K/mm3 RBC (4.1-5.6) M/mm3 Hgb (12.5-18.0) gm/dl Hct (42-50) % MCV (78-100) fl MCH (26-32) pg MCHC (32-36) g/dl RDW (11.5-14.0) % Plt Count (150-450) K/mm3 MPV (6-9.5) fl Absolute Granulocytes (1.4-6.9) Segmented Neutrophils (36.-66.) % Band Neutrophils (0.0-2.0) % Lymphocytes (Manual) (24-44) % Monocytes (Manual) (0.0-12.0) % Platelet Estimate (NORMAL) RBC Morphology PT (8.83-12.87) SECONDS INR (0.8-3.0) APTT (24.1-36.1) SECONDS D-Dimer (215-500) ng/mL pO2/FiO2 Ratio % VBG pH (7.32-7.42) VBG pCO2 at Pat Temp (42-55) mm/Hg VBG pO2 at Pat Temp (25-40) mm/Hg VBG HCO3 (22-28) meq/L VBG O2 Sat (Mitzy) (95-100) VBG Base Excess (-2.0-2.0) VBG Hemoglobin VBG Carboxyhemoglobin (0.0-6.9) % T HGB POC Potassium (3.5-5.1) Sodium 135 L 135 L (137-145) mmol/L Potassium 4.5 4.5 (3.5-5.1) mmol/L Chloride 102 102 (98-107) mmol/L Carbon Dioxide 20 L 20 L (22-30) mmol/L Anion Gap 17.0 H 17.0 H (5-15) MEQ/L BUN 8 L 8 L (9-20) mg/dL Creatinine 0.53 L 0.53 L (0.66-1.25) mg/dL Estimated GFR > 60.0 > 60.0 ML/MIN Glucose 238 H 238 H (74-106) mg/dL Calcium 9.0 9.0 (8.4-10.2) mg/dL Total Bilirubin (0.2-1.3) mg/dL AST (17-59) U/L ALT (0-50) U/L Alkaline Phosphatase (38-126) U/L Troponin I < 0.012 (0.000-0.034) ng/mL Serum Total Protein (6.3-8.2) g/dL Albumin (3.5-5.0) g/dL Ur Collection Type Urine Color (YELLOW) Urine Appearance (CLEAR) Urine pH (5-6) Ur Specific Marlin (1.005-1.025) Urine Protein (Negative) Urine Ketones (NEGATIVE) Urine Blood (0-5) Godfrey/ul Urine Nitrite (NEGATIVE) Urine Bilirubin (NEGATIVE) Urine Urobilinogen (0-1) mg/dL Ur Leukocyte Esterase (NEGATIVE) Urine Culture Reflexed (NO) Urine Glucose (NEGATIVE) mg/dL Specimen Received 02/15/18 02/15/18 02/16/18 Range/Units 20:00 23:30 02:45 WBC (4.0-10.5) K/mm3 RBC (4.1-5.6) M/mm3 Hgb (12.5-18.0) gm/dl Hct (42-50) % MCV (78-100) fl MCH (26-32) pg MCHC (32-36) g/dl RDW (11.5-14.0) % Plt Count (150-450) K/mm3 MPV (6-9.5) fl Absolute Granulocytes (1.4-6.9) Segmented Neutrophils (36.-66.) % Band Neutrophils (0.0-2.0) % Lymphocytes (Manual) (24-44) % Monocytes (Manual) (0.0-12.0) % Platelet Estimate (NORMAL) RBC Morphology PT (8.83-12.87) SECONDS INR (0.8-3.0) APTT (24.1-36.1) SECONDS D-Dimer (215-500) ng/mL pO2/FiO2 Ratio % VBG pH (7.32-7.42) VBG pCO2 at Pat Temp (42-55) mm/Hg VBG pO2 at Pat Temp (25-40) mm/Hg VBG HCO3 (22-28) meq/L VBG O2 Sat (Mitzy) (95-100) VBG Base Excess (-2.0-2.0) VBG Hemoglobin VBG Carboxyhemoglobin (0.0-6.9) % T HGB POC Potassium (3.5-5.1) Sodium (137-145) mmol/L Potassium (3.5-5.1) mmol/L Chloride (98-107) mmol/L Carbon Dioxide (22-30) mmol/L Anion Gap (5-15) MEQ/L BUN (9-20) mg/dL Creatinine (0.66-1.25) mg/dL Estimated GFR ML/MIN Glucose (74-106) mg/dL Calcium (8.4-10.2) mg/dL Total Bilirubin (0.2-1.3) mg/dL AST (17-59) U/L ALT (0-50) U/L Alkaline Phosphatase (38-126) U/L Troponin I < 0.012 < 0.012 < 0.012 (0.000-0.034) ng/mL Serum Total Protein (6.3-8.2) g/dL Albumin (3.5-5.0) g/dL Ur Collection Type Urine Color (YELLOW) Urine Appearance (CLEAR) Urine pH (5-6) Ur Specific Marlin (1.005-1.025) Urine Protein (Negative) Urine Ketones (NEGATIVE) Urine Blood (0-5) Godfrey/ul Urine Nitrite (NEGATIVE) Urine Bilirubin (NEGATIVE) Urine Urobilinogen (0-1) mg/dL Ur Leukocyte Esterase (NEGATIVE) Urine Culture Reflexed (NO) Urine Glucose (NEGATIVE) mg/dL Specimen Received 02/16/18 02/16/18 02/16/18 Range/Units 03:30 07:00 07:00 WBC 6.1 (4.0-10.5) K/mm3 RBC 4.74 (4.1-5.6) M/mm3 Hgb 13.3 (12.5-18.0) gm/dl Hct 39.2 L (42-50) % MCV 82.7 (78-100) fl MCH 28.1 (26-32) pg MCHC 33.9 (32-36) g/dl RDW 14.3 H (11.5-14.0) % Plt Count 173 (150-450) K/mm3 MPV 9.5 (6-9.5) fl Absolute Granulocytes (1.4-6.9) Segmented Neutrophils (36.-66.) % Band Neutrophils (0.0-2.0) % Lymphocytes (Manual) (24-44) % Monocytes (Manual) (0.0-12.0) % Platelet Estimate (NORMAL) RBC Morphology PT (8.83-12.87) SECONDS INR (0.8-3.0) APTT (24.1-36.1) SECONDS D-Dimer (215-500) ng/mL pO2/FiO2 Ratio % VBG pH (7.32-7.42) VBG pCO2 at Pat Temp (42-55) mm/Hg VBG pO2 at Pat Temp (25-40) mm/Hg VBG HCO3 (22-28) meq/L VBG O2 Sat (Mitzy) (95-100) VBG Base Excess (-2.0-2.0) VBG Hemoglobin VBG Carboxyhemoglobin (0.0-6.9) % T HGB POC Potassium (3.5-5.1) Sodium 138 138 (137-145) mmol/L Potassium 4.0 4.2 (3.5-5.1) mmol/L Chloride 100 99 (98-107) mmol/L Carbon Dioxide 26 30 (22-30) mmol/L Anion Gap 14.9 13.3 (5-15) MEQ/L BUN 6 L 6 L (9-20) mg/dL Creatinine 0.55 L 0.64 L (0.66-1.25) mg/dL Estimated GFR > 60.0 > 60.0 ML/MIN Glucose 195 H 221 H (74-106) mg/dL Calcium 8.6 8.6 (8.4-10.2) mg/dL Total Bilirubin (0.2-1.3) mg/dL AST (17-59) U/L ALT (0-50) U/L Alkaline Phosphatase (38-126) U/L Troponin I (0.000-0.034) ng/mL Serum Total Protein (6.3-8.2) g/dL Albumin (3.5-5.0) g/dL Ur Collection Type Urine Color (YELLOW) Urine Appearance (CLEAR) Urine pH (5-6) Ur Specific Marlin (1.005-1.025) Urine Protein (Negative) Urine Ketones (NEGATIVE) Urine Blood (0-5) Godfrey/ul Urine Nitrite (NEGATIVE) Urine Bilirubin (NEGATIVE) Urine Urobilinogen (0-1) mg/dL Ur Leukocyte Esterase (NEGATIVE) Urine Culture Reflexed (NO) Urine Glucose (NEGATIVE) mg/dL Specimen Received Micro Results-Entire Visit: Accuchecks Date 02/16/18 Date 02/16/18 Date 02/15/18 Date 02/15/18 Date 02/15/18 Date 02/15/18 Time 08:00 Time 04:16 Time 23:39 Time 21:17 Time 20:29 Time 18:13 Accucheck Value: 220 Accucheck Value: 195 Accucheck Value: 181 Accucheck Value: 162 Accucheck Value: 230 Accucheck Value: 263 Accucheck Value: 329 Accucheck Value: 330 Accucheck Value: 407 Accucheck Value: 485 - Radiology Exams Ordered Rad Exams-Entire Visit: Radiology Procedures Category Date Time Status CHEST 1 VIEW (PORTABLE) Stat Exams 02/15/18 14:16 Completed CHEST WITH CONTRAST [CT] Stat Exams 02/15/18 15:59 Completed - Procedures and Test Procedures and Tests throughout Hospitalization: Therapy Orders & Screens 02/15/18 22:13 Respiratory Therapy Assessment DAILY Comment: Diagnosis: chest pain,hyperglycemia,DKA - Discharge Disposition: Home, Self-Care Condition: Fair Prescriptions: New Canagliflozin [Invokana] 100 mg PO DAILY #30 tablet Continue Duloxetine HCl [Cymbalta] 120 mg PO DAILY Divalproex Sodium [Depakote] 1,500 mg PO HS clonazePAM [Klonopin] 1 mg PO TID Losartan Potassium [Cozaar] 100 mg PO DAILY Nitroglycerin 0.4 mg Tablet [Nitrostat 0.4 MG Tablet] 0.4 mg SL Q5MIN PRN MR X 3 PRN #30 bottle PRN Reason: Chest Pain Furosemide 40 mg [Lasix 40 MG] 40 mg PO DAILY Potassium Chloride 8 meq PO DAILY Metformin HCl 500 mg [Glucophage 500 MG] 500 mg PO BID #30 tablet Metoprolol Succinate 50 mg [Toprol Xl 50 MG] 100 mg PO BID l Gasseri/B Bifidum/B Longum [[facility] Capsule] 1 each PO TID Montelukast Sodium 10 mg [Singulair 10 MG] 10 mg PO DAILY Amlodipine Besylate 5 mg PO DAILY Sitagliptin Phosphate [Januvia] 25 mg PO DAILY Cetirizine HCl [Zyrtec] 10 mg PO DAILY Aspirin 81 mg PO DAILY Albuterol Sulfate [Ventolin Hfa] 3 puffs IH Q6HPRN PRN PRN Reason: Shortness Of Breath Naproxen 375 mg [Naprosyn 375 mg] 375 mg PO BID Fluticasone/Salmeterol 500/50* [Advair 500-50 Diskus] 2 each IH BID Fluticasone Propionate [Flonase Allergy Relief] 1 spray NS BID Instructions: Diabetes Diet , Hyperglycemia, Adult (DC), Blood Glucose Monitoring, Diabetes Insipidus (DC) Follow up with: TIGRE ROCHA [Primary Care Provider] - 1 Week
[2018-02-16] MEDS ORDERED: Flonase NASAL NS SCH (10:00)
[2018-02-18 07:17] VITALS: O2SAT 98
== END 2018-02-16 10:00 | disposition home or self-care (01) ==
LOC: ED 13:57 → INTOOBSV 18:11 → ICU 18:11
PROVIDERS: ADMIT Family Medicine; ATTEND Family Medicine
DX: R07.9 Chest pain, unspecified (principal); E72.51 Non-ketotic hyperglycinemia; E11.9 Type 2 diabetes mellitus without complications; Z79.4 Long term (current) use of insulin; I10 Essential (primary) hypertension; E78.00 Pure hypercholesterolemia, unspecified; J45.909 Unspecified asthma, uncomplicated; F41.8 Other specified anxiety disorders; M19.90 Unspecified osteoarthritis, unspecified site; Z79.899 Other long term (current) drug therapy
CPT/HCPCS: 36000; 36415; 71045; 71260; 80048; 80053; 81002; 82805; 82962; 84484; 85025; 85027; 85379; 85610; 85730; 87040; 87077; 87186; 93005; 93041; 93268; 94640; 96360; 96361; 96365; 96374; 96375; 99285; J0696; J1642; J1815; J2270; J2405; A9270-GY; G0378

== ENCOUNTER 2018-02-16 20:24 | Observation (INO) | payer OTHER ==
[2018-02-16] MEDS ORDERED: ROCEPHIN 1 Gm-D5w 50 ml Bag** 1 G/50 ML IVPB IV SCH (22:00)
[2018-02-16 22:04] LABS: BASOPHIL % 0.7 % (0.0-0.4); Basophil (Absolute #) 0.05 (0-0.4); Eosinophil % 1.6 % (0.00-5.0); Eosinophil (Absolute #) 0.11 (0-0.5); Granulocyte Absolute (ANC) 4.23 (1.4-6.9); Granulocytes % 62.5 % (36.0-66.0); Hematocrit 39.4 % (42-50); Hemoglobin 13.7 gm/dl (12.5-18.0); Lymphocyte (Absolute #) 1.55 (1.0-4.6); Lymphocytes % 22.9 % (24.0-44.0); Mean Cell Volume 81.4 fl (78-100); Mean Corpuscular Hemoglobin 28.3 pg (26-32); Mean Corpuscular Hgb Concent. 34.8 g/dl (32-36); Mean Platelet Volume 10.3 fl (6-9.5); Monocyte (Absolute #) 0.83 (0.0-1.3); Monocytes % 12.3 % (0.0-12.0); Platelet Count 212 K/mm3 (150-450); Red Blood Count 4.84 M/mm3 (4.1-5.6); Red Cell Distribution Width 14.5 % (11.5-14.0); White Blood Count 6.8 K/mm3 (4.0-10.5)
[2018-02-16] MEDS: NovoLOG Insulin SQ PRN (22:32)
[2018-02-16] MEDS: Klonopin 0.5 MG PO SCH (23:06)
[2018-02-16] MEDS: NAPROSYN 375 MG PO SCH (23:06)
[2018-02-16] MEDS: Toprol Xl 100 MG PO SCH (23:07)
[2018-02-16 23:42] LABS: Appearance CLEAR (CLEAR); Bilirubin NEGATIVE (NEGATIVE); Blood TRACE NON-HEM Ery/ul (0-5); Glucose 1000 mg/dL (NEGATIVE); Ketones SMALL (NEGATIVE); Leukocyte Esterase NEGATIVE (NEGATIVE); Nitrite NEGATIVE (NEGATIVE); Ph 7.5 (5-6); Protein,Urine Dip NEGATIVE (Negative); Specific Gravity 1.005 (1.005-1.025); Urobilinogen NORMAL mg/dL (0-1)
[2018-02-16 23:44] LABS: Epithelial Cells RARE /HPF (FEW); RBC 0-2 /HPF (0-2)
[2018-02-17 02:40] LABS: BAND 12 % (0.0-2.0); Basophil 1 % (0.0-1.0); Eosinophil 1 % (0.00-3.0); Lymphocytes 23 % (24-44); Monocyte 12 % (0.0-12.0); Neutrophils 51 % (36.-66.); Total Cells Counted 100
[2018-02-17 02:42] LABS: Platelet Estimate NORMAL (NORMAL)
[2018-02-17] MEDS ORDERED: Ventolin Hfa MDI IH PRN (07:11)
[2018-02-17] MEDS ORDERED: Nitrostat 0.4 MG Tablet SL PRN (07:11)
[2018-02-17] MEDS ORDERED: PROVENTIL COMMON CANISTER IH PRN (07:16)
[2018-02-17] MEDS ORDERED: MEDICATION INTERVENTION PO SCH (07:30)
[2018-02-17] MEDS: NovoLOG Insulin SQ PRN ×4 (07:53→22:07)
[2018-02-17] MEDS: Cymbalta 30 MG Capsule PO SCH (09:16)
[2018-02-17] MEDS: CLARITIN 10 MG PO SCH (09:16)
[2018-02-17] MEDS: Cozaar 50 MG PO SCH (09:16)
[2018-02-17] MEDS: ECOTRIN 81 MG PO SCH (09:17)
[2018-02-17] MEDS: Flonase NASAL NS SCH ×2 (09:17→22:08)
[2018-02-17] MEDS: Januvia 50 MG PO SCH (09:18)
[2018-02-17] MEDS: Klonopin 0.5 MG PO SCH ×3 (09:19→22:06)
[2018-02-17] MEDS: Klor Con 10 MEQ PO SCH (09:20)
[2018-02-17] MEDS: NORVASC 5 MG PO SCH (09:20)
[2018-02-17] MEDS: NAPROSYN 375 MG PO SCH ×2 (09:20→22:08)
[2018-02-17] MEDS: Lasix 40 MG PO SCH (09:20)
[2018-02-17] MEDS: Singulair 10 MG PO SCH (09:21)
[2018-02-17] MEDS: Toprol Xl 100 MG PO SCH ×2 (09:22→22:07)
[2018-02-17] MEDS: Advair Hfa 230/21 Mcg COMMON CANISTER IH SCH ×2 (09:27→19:22)
[2018-02-17] MEDS ORDERED: NON-FORMULARY ITEM (Duloxetine Hcl [Cymbalta] 120 MG) PO SCH (10:00)
[2018-02-17] MEDS ORDERED: NON-FORMULARY ITEM (Potassium Chloride [Potassium Chloride] 8 MEQ) PO SCH (10:00)
[2018-02-17] MEDS ORDERED: B BIFIDUM PO SCH (10:00)
[2018-02-17] MEDS ORDERED: NON-FORMULARY ITEM (Cetirizine Hcl [Zyrtec] 10 MG) PO SCH (10:00)
[2018-02-17] MEDS ORDERED: GASSERI PO SCH (10:00)
[2018-02-17] MEDS ORDERED: NON-FORMULARY ITEM (Sitagliptin Phosphate [Januvia] 25 MG) PO SCH (10:00)
[2018-02-17] MEDS ORDERED: NON-FORMULARY ITEM (Fluticasone Propionate [Flonase Allergy Relief] 1 SPRAY) NS SCH (10:00)
[2018-02-17] MEDS ORDERED: ADVAIR 500-50 DISKUS IH SCH (10:00)
[2018-02-17] MEDS ORDERED: [UNRECOGNIZED DRUG - OTHER] PO SCH (10:00)
[2018-02-17] MEDS ORDERED: NON-FORMULARY ITEM (Aspirin [Aspirin] 81 MG) PO SCH (10:00)
[2018-02-17] MEDS ORDERED: B LONGUM PO SCH (10:00)
[2018-02-17] MEDS ORDERED: ROCEPHIN 1 Gm-D5w 50 ml Bag** 1 G/50 ML IVPB IV ONE (19:51)
[2018-02-17] MEDS ORDERED: ROCEPHIN 1 Gm-D5w 50 ml Bag** 1 G/50 ML IVPB IV SCH (22:00)
[2018-02-18 06:12] LABS: Granulocyte Absolute (ANC) 3.26 (1.4-6.9); Hematocrit 40.3 % (42-50); Hemoglobin 13.7 gm/dl (12.5-18.0); Mean Cell Volume 81.7 fl (78-100); Mean Corpuscular Hemoglobin 27.8 pg (26-32); Mean Platelet Volume 10.4 fl (6-9.5); Platelet Count 222 K/mm3 (150-450); Red Blood Count 4.93 M/mm3 (4.1-5.6); Red Cell Distribution Width 14.3 % (11.5-14.0); White Blood Count 6.1 K/mm3 (4.0-10.5)
[2018-02-18 06:27] LABS: ALKALINE PHOSPHATASE 91 U/L (38-126); ANION GAP 15.2 MEQ/L (5-15); BLOOD UREA NITROGEN 11 mg/dL (9-20); CHLORIDE 97 mmol/L (98-107); Calcium 9.1 mg/dL (8.4-10.2); Carbon Dioxide 27 mmol/L (22-30); Creatinine 1 0.55 mg/dL (0.66-1.25); Glucose 251 mg/dL (74-106); Potassium 3.8 mmol/L (3.5-5.1); SGOT/AST 44 U/L (17-59); SGPT/ALT 62 U/L (0-50); SODIUM 136 mmol/L (137-145); Total Protein 6.7 g/dL (6.3-8.2)
[2018-02-18] MEDS: Advair Hfa 230/21 Mcg COMMON CANISTER IH SCH (07:04)
[2018-02-18 07:20] VITALS: BP 134/88; PULSE 74; O2SAT 96
[2018-02-18 07:25] LABS: Eosinophil 4 % (0.00-3.0); Lymphocytes 34 % (24-44); Monocyte 6 % (0.0-12.0); Neutrophils 56 % (36.-66.)
[2018-02-18 07:26] LABS: ANISOCYTOSIS 1+; Platelet Estimate NORMAL (NORMAL); Total Cells Counted 100; Toxic Granulation 1+
[2018-02-18] MEDS: NovoLOG Insulin SQ PRN (08:16)
[2018-02-18] MEDS: Cymbalta 30 MG Capsule PO SCH (08:16)
[2018-02-18] MEDS: Toprol Xl 100 MG PO SCH (08:17)
[2018-02-18] MEDS: Cozaar 50 MG PO SCH (08:17)
[2018-02-18] MEDS: Klor Con 10 MEQ PO SCH (08:17)
[2018-02-18] MEDS: ECOTRIN 81 MG PO SCH (08:17)
[2018-02-18] MEDS: Klonopin 0.5 MG PO SCH (08:17)
[2018-02-18] MEDS: CLARITIN 10 MG PO SCH (08:17)
[2018-02-18] MEDS: Lasix 40 MG PO SCH (08:17)
[2018-02-18] MEDS: NORVASC 5 MG PO SCH (08:17)
[2018-02-18] MEDS: Singulair 10 MG PO SCH (08:18)
[2018-02-18] MEDS: Flonase NASAL NS SCH (08:18)
[2018-02-18] MEDS: Januvia 50 MG PO SCH (08:18)
[2018-02-18] MEDS: NAPROSYN 375 MG PO SCH (08:20)
--- NOTE | 2018-02-18 08:45 | PCM.DCORD ---
- Discharge Discharge Date: 02/18/18 Prescriptions: New Levofloxacin [Levaquin] 500 mg PO DAILY 7 Days #7 tablet Continue Duloxetine HCl [Cymbalta] 120 mg PO DAILY Divalproex Sodium [Depakote] 1,500 mg PO HS clonazePAM [Klonopin] 1 mg PO TID Losartan Potassium [Cozaar] 100 mg PO DAILY Nitroglycerin 0.4 mg Tablet [Nitrostat 0.4 MG Tablet] 0.4 mg SL Q5MIN PRN MR X 3 PRN #30 bottle PRN Reason: Chest Pain Furosemide 40 mg [Lasix 40 MG] 40 mg PO DAILY Potassium Chloride 8 meq PO DAILY Metformin HCl 500 mg [Glucophage 500 MG] 500 mg PO BID #30 tablet Metoprolol Succinate 50 mg [Toprol Xl 50 MG] 100 mg PO BID l Gasseri/B Bifidum/B Longum [[facility] Capsule] 1 each PO TID Montelukast Sodium 10 mg [Singulair 10 MG] 10 mg PO DAILY Amlodipine Besylate 5 mg PO DAILY Sitagliptin Phosphate [Januvia] 25 mg PO DAILY Cetirizine HCl [Zyrtec] 10 mg PO DAILY Aspirin 81 mg PO DAILY Albuterol Sulfate [Ventolin Hfa] 3 puffs IH Q6HPRN PRN PRN Reason: Shortness Of Breath Naproxen 375 mg [Naprosyn 375 mg] 375 mg PO BID Fluticasone/Salmeterol 500/50* [Advair 500-50 Diskus] 2 each IH BID Fluticasone Propionate [Flonase Allergy Relief] 1 spray NS BID Instructions: Blood Culture, Carbohydrate Counting Diet, Diabetes Type 2 (DC) Follow up with: TIGRE HARDIN [Primary Care Provider] - 02/25/18 1:30 pm Forms: Discharge Instructions
--- NOTE | 2018-02-18 12:26 | SSS ---
DISCHARGE DIAGNOSIS: BACTEREMIA WITH ENTEROBACTER CLOACAE. HOSPITAL COURSE: This is a 32 year-old white male who was in the hospital over the weekend approximately four days ago for increasing sugars above 500. He was feeling bad and presented to the emergency room and was admitted for hyperglycemic control. At that time he did have some blood cultures ran. He was feeling good and allowed to discharge home. Later that day the cultures came back the cultures came back positive for gram negative rods in the blood culture. He was brought back to the hospital to be placed empirically on IV Rocephin. The patient has done well after the initiation of treatment with Rocephin. The culture did come back Enterobacter cloacae which I believe is likely a contaminant. However it is sensitive to the ceftriaxone which he was on resistant to cefazolin and cefuroxime but sensitive to all other antibiotics tried. PHYSICAL EXAMINATION: Physical exam at the time of discharge revealed an obese white male patient in no distress. His vital signs on discharge showed a temperature of 97.9F, pulse 67, respiratory rate 24 and blood pressure 116/63. O2 saturation 92% on room air. HEENT: Normocephalic, atraumatic. Pupils equal round reactive to light. Extraocular movements intact. Oropharynx is pink and moist. NECK: Supple without lymphadenopathy, thyromegaly or JVD. CHEST: Clear to auscultation with good air movement bilaterally. HEART: Regular rate and rhythm without murmurs, rubs or gallops. ABDOMEN: Soft. No palpable masses. EXTREMITIES: Without clubbing, cyanosis or edema. NEUROLOGIC: The patient is alert and oriented x3. LAB DATA AND TESTS: His metabolic panel in the morning nonfasting showed a sugar 251, BUN 11, creatinine 0.55. Electrolytes were normal. Liver enzymes were normal. White blood cell count 6,100. Hemoglobin 13.7, PLT count 223,000. His differential had shown up to 12 bands the day before but now essentially clear of bands. PLAN: The patient will be discharged home now on Levaquin at 500 mg daily for seven days and return to the office in one week to monitor his glycemic control closely as he does not follow his medical regimen very closely. He is to return to the hospital if he has any further problems in the interim.
== END 2018-02-18 09:33 | disposition home or self-care (01) ==
LOC: MED SURG 20:35
PROVIDERS: ADMIT Family Medicine; ATTEND Family Medicine
DX: B96.89 Other specified bacterial agents as the cause of diseases classified elsewhere (principal)
CPT/HCPCS: 36415; 80053; 81000; 85025; 87040; 94640; 94760; G0378; J0696; A9270-GY

== ENCOUNTER 2018-04-19 14:33 | Inpatient (IN) | payer OTHER ==
[2018-04-19] MEDS ORDERED: Sodium Chloride 0.9% 1000 ML 1,000 ML IV STA ×2 (14:53→16:08)
--- NOTE | 2018-04-19 15:06 | ERPHSYRPT ---
- History of Present Illness Time Seen by Provider: 04/19/18 15:01 Source: patient Exam Limitations: no limitations Patient Subjective Stated Complaint: Thought sugar was high. Joints felt like "they were Snapping" and shoulders were being pushed backwards. dizziness Triage Nursing Assessment: pt alert and oriented. gait steady. talking in full sentences. BS 231, no other abnotmalities notes. Groshong dressing clean dry intact. Physician History: 32-year-old morbidly obese white male with history of angina, arrhythmia, asthma , bronchitis, high blood pressure, anxiety, depression, liver disease, hemachromatosis. Patient arrives with complaint that he was at the [facility] around 3:00 went to the bathroom got out again to feel dizzy felt like he was feeling waves like he gets when he has anxiety felt like he was going to pass out he states he tried to do breathing exercises like he normally does with his anxiety. He states he then drove from [place] to [place]. Patient did not pass out. patient does state that he had a headache prior to the onset of all of the above symptoms. Past medical history includes angina, arrhythmia, asthma, bronchitis, high blood pressure, hernia, fractures, anxiety, depression, liver disease, hemachromatosis, asthmatic bronchitis. Type 2 diabetes him Past surgical history includes colon resection, cholecystectomy. Patient has had a Groshong secondary to need for frequent blood draws secondary to hemachromatosis. Timing/Duration: today (3:30 PM) Severity: moderate Modifying Factors: Improves With: nothing Associated Symptoms: headaches, malaise, other (dizziness), No nausea, No vomiting, No abdominal pain, No shortness of breath, No heartburn, No diaphoresis, No cough, No chills, No chest pain, No fever, No loss of appetite, No syncope, No seizure, No weakness Allergies/Adverse Reactions: turmeric Allergy (Verified 02/15/18 18:38) Anaphylactic Reaction Home Medications: Divalproex Sodium [Depakote] 1,500 mg PO HS 10/17/16 [History] Duloxetine HCl [Cymbalta] 120 mg PO DAILY 10/17/16 [History] Losartan Potassium [Cozaar] 100 mg PO DAILY 10/17/16 [History] clonazePAM [Klonopin] 1 mg PO TID 10/17/16 [History] Furosemide 40 mg [Lasix 40 MG] 40 mg PO DAILY 12/28/16 [History] Potassium Chloride 8 meq PO DAILY 12/28/16 [History] Metoprolol Succinate 50 mg [Toprol Xl 50 MG] 100 mg PO BID 03/28/17 [ History] l Gasseri/B Bifidum/B Longum [[employer] Capsule] 1 each PO TID [History] Albuterol Sulfate [Ventolin Hfa] 3 puffs IH Q6HPRN PRN 12/12/17 [History] Amlodipine Besylate 5 mg PO DAILY 12/12/17 [History] Aspirin 81 mg PO DAILY 12/12/17 [History] Cetirizine HCl [Zyrtec] 10 mg PO DAILY 12/12/17 [History] Montelukast Sodium 10 mg [Singulair 10 MG] 10 mg PO DAILY 12/12/17 [History] Naproxen 375 mg [Naprosyn 375 mg] 375 mg PO BID 12/12/17 [History] Sitagliptin Phosphate [Januvia] 25 mg PO DAILY 12/12/17 [History] Fluticasone Propionate [Flonase Allergy Relief] 1 spray NS BID 02/15/18 [History ] Fluticasone/Salmeterol 500/50* [Advair 500-50 Diskus] 2 each IH BID 02/15/18 [History] Hx Tetanus, Diphtheria Vaccination/Date Given: Yes Hx Influenza Vaccination/Date Given: No Hx Pneumococcal Vaccination/Date Given: Yes - Review of Systems Constitutional: No Fever, No Chills Eyes: No Symptoms Ears, Nose, & Throat: No Symptoms Respiratory: No Cough, No Dyspnea Cardiac: No Chest Pain, No Edema, No Syncope Abdominal/Gastrointestinal: No Abdominal Pain, No Nausea, No Vomiting, No Diarrhea Genitourinary Symptoms: No Dysuria Musculoskeletal: No Back Pain, No Neck Pain Skin: No Rash Neurological: Dizziness, Headache, No Focal Weakness, No Gait Changes, No Irritability, No Lethargy, No Paralysis, No Parasthesia, No Seizure, No Sensory Changes, No Speech Changes, No Tics, No Tremors, No Vertigo Psychological: No Symptoms Endocrine: No Symptoms All Other Systems: Reviewed and Negative - Past Medical History Pertinent Past Medical History: Yes Neurological History: No Pertinent History ENT History: No Pertinent History Cardiac History: Arrhythmia, High Cholesterol, Hypertension Respiratory History: Asthma, Bronchitis Endocrine Medical History: Diabetes Type II, Other Musculoskeletal History: Fractures, Osteoarthritis GI Medical History: Gallbladder Disease, Hernia, Other History: No Pertinent History Psycho-Social History: Anxiety, Depression, Other Male Reproductive Disorders: No Pertinent History Other Medical History: liver disease, Hemachromatosis. Pt denies COPD but does have hx of asthmatic bronchitis. Tachycardia - Past Surgical History Past Surgical History: Yes Neuro Surgical History: No Pertinent History Cardiac: No Pertinent History Respiratory: No Pertinent History Gastrointestinal: Cholecystectomy, Hernia Repair Genitourinary: No Pertinent History Musculoskeletal: Other Male Surgical History: No Pertinent History Other Surgical History: central line Groshong CV catheterx8 - Social History Smoking Status: Never smoker Exposure to second hand smoke: Yes Drug Use: none Patient Lives Alone: Yes - Nursing Vital Signs Nursing Vital Signs: Initial Vital Signs Temperature 98.5 F 04/19/18 14:36 Pulse Rate 112 H 04/19/18 14:36 Respiratory Rate 18 04/19/18 14:36 Blood Pressure 137/85 04/19/18 14:36 O2 Sat by Pulse Oximetry 97 04/19/18 14:36 Pain Scale Pain Intensity 4 - Physical Exam General Appearance: mild distress, other (well-developed morbidly obese white male, alert oriented 3) Eye Exam: PERRL/EOMI, eyes nml inspection Ears, Nose, Throat Exam: normal ENT inspection, TMs normal, pharynx normal, moist mucous membranes Neck Exam: normal inspection, non-tender, supple, full range of motion Respiratory Exam: normal breath sounds, lungs clear, No respiratory distress Cardiovascular Exam: regular rate/rhythm, normal heart sounds, normal peripheral pulses Gastrointestinal/Abdomen Exam: soft, normal bowel sounds, No tenderness, No mass Back Exam: normal inspection, normal range of motion, No CVA tenderness, No vertebral tenderness Extremity Exam: normal inspection, normal range of motion, pelvis stable Neurologic Exam: alert, oriented x 3, cooperative, room server II-XII nml as tested, normal mood/affect, nml cerebellar function, nml station & gait, sensation nml, No motor deficits Skin Exam: normal color, warm, dry, No rash SpO2 Interpretation: normal (97%) Oxygen Delivery: Room Air - Course Nursing assessment & vital signs reviewed: Yes EKG Interpreted by Me: RATE (114 bpm), Sinus Tach, Other (EKG: Sinus tachycardia , 114 beats per minute,S AXISI/QIII pattern, Q waves in lead 3, no acute ST or T wave changes, compared to January) Rhythm Strip: Rate (February 15) - CT Exams Head CT Interpretation: Tele-radiologist Report (no acute intracranial pathology) Ordered Tests: Active Orders 24 hr Category Date Time Status Accucheck STAT Care 04/19/18 14:53 Active Rn Pool STAT Care 04/19/18 14:54 Active EKG-ER Only STAT Care 04/19/18 14:53 Active IV Insertion STAT Care 04/19/18 14:53 Active Orthostatic Vital Signs STAT Care 04/19/18 14:53 Active HEAD WITHOUT CONTRAST [CT] Stat Exams 04/19/18 15:16 Taken BLOOD CULTURE Stat Lab 04/19/18 15:15 Received BLOOD CULTURE Stat Lab 04/19/18 17:12 Received CBC W DIFF Stat Lab 04/19/18 15:13 Completed CMP Stat Lab 04/19/18 15:13 Completed ETHYL ALCOHOL Stat Lab 04/19/18 15:13 Completed Manual Differential NC Stat Lab 04/19/18 15:13 Completed UA W/RFX UR CULTURE Stat Lab 04/19/18 14:54 Ordered Transfer Order Routine Transfer 04/19/18 Ordered Medication Summary Discontinued Medications Generic Name Dose Route Start Last Admin Trade Name Freq PRN Reason Stop Dose Admin Sodium Chloride 1,000 mls @ 999 mls/hr 04/19/18 14:53 04/19/18 16:34 Sodium Chloride 0.9% 1000 Ml IV 04/19/18 15:53 Infused .Q1H1M STA Infusion Sodium Chloride Confirm 04/19/18 15:08 Sodium Chloride 0.9% 1000 Ml Administered 04/19/18 15:09 Dose 1,000 mls @ ud .ROUTE .STK-MED ONE Sodium Chloride 1,000 mls @ 999 mls/hr 04/19/18 16:08 04/19/18 16:31 Sodium Chloride 0.9% 1000 Ml IV 04/19/18 17:08 999 mls/hr .Q1H1M STA Administration Sodium Chloride Confirm 04/19/18 16:27 Sodium Chloride 0.9% 1000 Ml Administered 04/19/18 16:28 Dose 1,000 mls @ ud .ROUTE .STK-MED ONE Ibuprofen 600 mg 04/19/18 16:13 04/19/18 16:45 Motrin 600 Mg PO 04/19/18 16:14 600 mg STAT ONE Administration Ibuprofen Confirm 04/19/18 16:44 Motrin 600 Mg Administered 04/19/18 16:45 Dose 600 mg .ROUTE .STK-MED ONE Lab/Rad Data: Laboratory Result Diagrams 04/19/18 15:13 04/19/18 15:13 Laboratory Results 04/19/18 04/19/18 Range/Units 15:13 15:13 WBC 9.6 (4.0-10.5) K/mm3 RBC 5.02 (4.1-5.6) M/mm3 Hgb 14.1 (12.5-18.0) gm/dl Hct 41.5 L (42-50) % MCV 82.7 (78-100) fl MCH 28.1 (26-32) pg MCHC 34.0 (32-36) g/dl RDW 14.9 H (11.5-14.0) % Plt Count 210 (150-450) K/mm3 MPV 10.0 H (6-9.5) fl Segmented Neutrophils 73 H (36.-66.) % Band Neutrophils 12 H (0.0-2.0) % Lymphocytes (Manual) 15 L (24-44) % Toxic Granulation 1+ Platelet Estimate NORMAL (NORMAL) RBC Morphology NORMAL Sodium 137 (137-145) mmol/L Potassium 4.3 (3.5-5.1) mmol/L Chloride 100 (98-107) mmol/L Carbon Dioxide 24 (22-30) mmol/L Anion Gap 17.7 H (5-15) MEQ/L BUN 13 (9-20) mg/dL Creatinine 0.54 L (0.66-1.25) mg/dL Estimated GFR > 60.0 ML/MIN Glucose 194 H (74-106) mg/dL Calcium 9.4 (8.4-10.2) mg/dL Total Bilirubin 0.50 (0.2-1.3) mg/dL AST 37 (17-59) U/L ALT 52 H (0-50) U/L Alkaline Phosphatase 74 (38-126) U/L Serum Total Protein 7.0 (6.3-8.2) g/dL Albumin 4.3 (3.5-5.0) g/dL Ethyl Alcohol < 10 (0-10) mg/dL - Progress Progress: improved Progress Note: 04/19/18 16:13 32-year-old white male arrives with complaint of dizziness headache symptoms while at the [facility] the patient family drove here from [place] after onset of symptoms. Patient without any focal defects patient does have increased segs and bands this is chronic for the patient as compared to previous laboratory also with a history of hemochromatosis. Today hemoglobin and hematocrit are within normal limits. patient receiving IV normal saline which seems to be improving the patient will plan on giving a second liter of normal saline. Head CT is within normal limits. Awaiting urinalysis. Patient was ORIF for [place] for his headache and lower extremity pain. Patient does not want this did state he would take some ibuprofen. 04/19/18 17:00 I've discussed patient's case with Dr. sutton who is stock preparation supervisor for Dr. Rocha the patient's family physician. The patient the did complain of a headache and pain in his lower extremities he does not have a fever. She has requested that we be sure that patient gets a blood culture drawn from his Groshong catheter. She has also requested that patient has a catheter urinalysis obtained since he will not provide us with a urine. The patient's nurses have a asked him to allow them to obtain a catheter specimen he is refusing. Will go ahead and order blood culture from the Groshong catheter as noted above. Will plan to place patient on observation continue to provide IV fluids. Will control patient's blood sugars. Will obtain every 4 hours neuro checks. And monitor the patient on telemetry. It is noted the patient does have increased segs and bands on his CBC this appears to be similar to which he had at last presentation. It is questionable really related to his hemochromatosis patient does have blood drawn every 2 weeks secondary to this. 04/19/18 17:03 Will hold off on antibioics at this time in view of the fact that urinalysis has not been obtained. This has been discussed with Dr Sutton. - Departure Time of Disposition: 17:03 Departure Disposition: Observation Clinical Impression: Dizziness, History of hemochromatosis Headache Qualifiers: Headache type: unspecified Headache chronicity pattern: unspecified pattern Intractability: not intractable Qualified Code(s): R51 - Headache Condition: Fair Critical Care Time: No Referrals: TIGRE ROCHA [Primary Care Provider] -
[2018-04-19] MEDS ORDERED: Sodium Chloride 0.9% 1000 ML 1,000 ML ONE ×2 (15:08→16:27)
[2018-04-19 15:23] LABS: Hematocrit 41.5 % (42-50); Hemoglobin 14.1 gm/dl (12.5-18.0); Mean Cell Volume 82.7 fl (78-100); Mean Corpuscular Hemoglobin 28.1 pg (26-32); Platelet Count 210 K/mm3 (150-450); Red Blood Count 5.02 M/mm3 (4.1-5.6); Red Cell Distribution Width 14.9 % (11.5-14.0); White Blood Count 9.6 K/mm3 (4.0-10.5)
[2018-04-19 15:32] LABS: ALBUMIN 4.3 g/dL (3.5-5.0); ALKALINE PHOSPHATASE 74 U/L (38-126); ANION GAP 17.7 MEQ/L (5-15); BLOOD UREA NITROGEN 13 mg/dL (9-20); CHLORIDE 100 mmol/L (98-107); Calcium 9.4 mg/dL (8.4-10.2); Carbon Dioxide 24 mmol/L (22-30); Creatinine 1 0.54 mg/dL (0.66-1.25); Glucose 194 mg/dL (74-106); Potassium 4.3 mmol/L (3.5-5.1); SGOT/AST 37 U/L (17-59); SGPT/ALT 52 U/L (0-50); SODIUM 137 mmol/L (137-145)
[2018-04-19 15:34] LABS: ETHYL ALCOHOL < 10 mg/dL (0-10)
[2018-04-19 15:38] LABS: BAND 12 % (0.0-2.0); Lymphocytes 15 % (24-44); Neutrophils 73 % (36.-66.); Platelet Estimate NORMAL (NORMAL); Total Cells Counted 100; Toxic Granulation 1+
[2018-04-19] MEDS ORDERED: MOTRIN 600 MG PO ONE (16:13)
[2018-04-19] MEDS ORDERED: MOTRIN 600 MG ONE (16:44)
[2018-04-19] MEDS ORDERED: NovoLOG Insulin SQ PRN (17:44)
[2018-04-19] MEDS: Sodium Chloride 0.9% 1000 ML 1,000 ML IV SCH (18:43)
[2018-04-19 19:04] LABS: Appearance CLEAR (CLEAR); Bilirubin NEGATIVE (NEGATIVE); Blood NEGATIVE Ery/ul (0-5); Glucose >=500 mg/dL (NEGATIVE); Ketones TRACE (NEGATIVE); Leukocyte Esterase NEGATIVE (NEGATIVE); Nitrite NEGATIVE (NEGATIVE); Protein,Urine Dip NEGATIVE (Negative); Specific Gravity 1.018 (1.005-1.025); Urobilinogen NEGATIVE mg/dL (0-1)
[2018-04-19] MEDS: Advair Hfa 230/21 Mcg COMMON CANISTER IH SCH (19:07)
[2018-04-19] MEDS ORDERED: PROVENTIL COMMON CANISTER IH PRN (19:12)
[2018-04-19] MEDS ORDERED: Nitrostat 0.4 MG Tablet SL PRN (20:26)
[2018-04-19] MEDS ORDERED: Flonase NASAL NS SCH (22:00)
[2018-04-19] MEDS ORDERED: Toprol Xl 50 MG PO SCH (22:00)
[2018-04-19] MEDS: NAPROSYN 375 MG PO SCH (22:10)
[2018-04-19] MEDS: Klonopin 0.5 MG PO SCH (22:10)
[2018-04-19] MEDS: LYRICA 75 MG CAP PO SCH (22:10)
[2018-04-19] MEDS: NovoLOG Insulin SQ PRN (22:11)
[2018-04-19] MEDS: Depakote EXTENDED RELEASE 250 MG PO SCH (22:14)
[2018-04-19] MEDS ORDERED: ROCEPHIN 1 Gm-D5w 50 ml Bag** 1 G/50 ML IVPB IV SCH (22:15)
--- NOTE | 2018-04-19 22:18 | XRAY ---
Indication: Headache, dizziness, lightheadedness, and eye pressure. Multiple contiguous axial images obtained through the head without contrast. Comparison: January 28, 2015. Again normal appearing brain parenchyma, ventricles, and bony calvarium. Visualized paranasal sinuses and mastoid air cells are clear. Impression: Stable normal CT head without contrast exam. Comment: Preliminary interpretation was made by [facility]. No discrepancy. CTDI 67.99
[2018-04-20] MEDS: Sodium Chloride 0.9% 1000 ML 1,000 ML IV SCH ×3 (05:26→16:10)
[2018-04-20 05:32] LABS: Hematocrit 38.3 % (42-50); Hemoglobin 12.7 gm/dl (12.5-18.0); Mean Corpuscular Hemoglobin 27.9 pg (26-32); Mean Corpuscular Hgb Concent. 33.2 g/dl (32-36); Mean Platelet Volume 10.4 fl (6-9.5); Platelet Count 197 K/mm3 (150-450); Red Blood Count 4.56 M/mm3 (4.1-5.6); Red Cell Distribution Width 15.2 % (11.5-14.0); White Blood Count 10.2 K/mm3 (4.0-10.5)
[2018-04-20 05:51] LABS: ALKALINE PHOSPHATASE 59 U/L (38-126); ANION GAP 14.5 MEQ/L (5-15); BLOOD UREA NITROGEN 13 mg/dL (9-20); CHLORIDE 101 mmol/L (98-107); Calcium 8.9 mg/dL (8.4-10.2); Carbon Dioxide 28 mmol/L (22-30); Creatinine 1 0.67 mg/dL (0.66-1.25); Glucose 132 mg/dL (74-106); Potassium 4.3 mmol/L (3.5-5.1); SGOT/AST 42 U/L (17-59); SGPT/ALT 53 U/L (0-50); SODIUM 139 mmol/L (137-145); Total Protein 6.7 g/dL (6.3-8.2)
[2018-04-20] MEDS: Advair Hfa 230/21 Mcg COMMON CANISTER IH SCH ×2 (06:55→18:57)
[2018-04-20 07:24] LABS: BAND 4 % (0.0-2.0); Eosinophil 6 % (0.00-3.0); Lymphocytes 17 % (24-44); Monocyte 5 % (0.0-12.0); Neutrophils 68 % (36.-66.); Platelet Estimate NORMAL (NORMAL); Total Cells Counted 100; Toxic Granulation 1+
[2018-04-20 08:56] LABS: Amphetamine,Urine NEGATIVE (NEGATIVE); Barbiturate,Urine NEGATIVE (NEGATIVE); Benzodiazepine,Urine NEGATIVE (NEGATIVE); Cocaine,Urine NEGATIVE (NEGATIVE); Methadone,Urine NEGATIVE (NEGATIVE); Opiate,Urine NEGATIVE (NEGATIVE); PCP,Urine NEGATIVE (NEGATIVE); THC,Urine NEGATIVE (NEGATIVE)
[2018-04-20] MEDS ORDERED: NON-FORMULARY ITEM (Sitagliptin Phosphate [Januvia] 25 MG) PO SCH (10:00)
[2018-04-20] MEDS ORDERED: NON-FORMULARY ITEM (Cetirizine Hcl [Zyrtec] 10 MG) PO SCH (10:00)
[2018-04-20] MEDS ORDERED: NON-FORMULARY ITEM (Potassium Chloride [Potassium Chloride] 8 MEQ) PO SCH (10:00)
[2018-04-20] MEDS ORDERED: B BIFIDUM PO SCH (10:00)
[2018-04-20] MEDS ORDERED: GASSERI PO SCH (10:00)
[2018-04-20] MEDS ORDERED: NON-FORMULARY ITEM (Aspirin [Aspirin] 81 MG) PO SCH (10:00)
[2018-04-20] MEDS ORDERED: B LONGUM PO SCH (10:00)
[2018-04-20] MEDS ORDERED: [UNRECOGNIZED DRUG - OTHER] PO SCH (10:00)
[2018-04-20] MEDS ORDERED: NON-FORMULARY ITEM (Duloxetine Hcl [Cymbalta] 120 MG) PO SCH (10:00)
[2018-04-20] MEDS: Januvia 50 MG PO SCH (10:30)
[2018-04-20] MEDS: Cymbalta 30 MG Capsule PO SCH (10:30)
[2018-04-20] MEDS: Cozaar 50 MG PO SCH (10:30)
[2018-04-20] MEDS: Lasix 40 MG PO SCH (10:30)
[2018-04-20] MEDS: Klor Con 10 MEQ PO SCH (10:31)
[2018-04-20] MEDS: NORVASC 5 MG PO SCH (10:31)
[2018-04-20] MEDS: Toprol Xl 100 MG PO SCH ×2 (10:31→21:58)
[2018-04-20] MEDS ORDERED: XYLOCAINE 1% HCL 20 ML MDV ONE (10:45)
[2018-04-20] MEDS ORDERED: MEDICATION INTERVENTION MC SCH ×2 (11:15)
[2018-04-20] MEDS ORDERED: Lactated Ringers 1,000 ML IV ONE (11:41)
[2018-04-20] MEDS ORDERED: LEVOFLOXACIN 750MG/150ML D5W 750 MG/150 ML BAG IV ONE ×2 (11:50→16:08)
[2018-04-20] MEDS: Flonase NASAL NS SCH ×2 (13:56→21:56)
[2018-04-20] MEDS: CLARITIN 10 MG PO SCH (13:56)
[2018-04-20] MEDS: ECOTRIN 81 MG PO SCH (13:56)
[2018-04-20] MEDS: Klonopin 0.5 MG PO SCH ×3 (13:57→21:56)
[2018-04-20] MEDS: NAPROSYN 375 MG PO SCH ×2 (13:57→21:57)
[2018-04-20] MEDS: Singulair 10 MG PO SCH (13:57)
[2018-04-20] MEDS: LYRICA 75 MG CAP PO SCH ×3 (13:57→21:56)
[2018-04-20] MEDS: TYLENOL 325 MG PO PRN ×2 (16:14→20:23)
[2018-04-20] MEDS: Depakote EXTENDED RELEASE 250 MG PO SCH (21:55)
[2018-04-20] MEDS: ROCEPHIN 1 Gm-D5w 50 ml Bag** 1 G/50 ML IVPB IV SCH (21:57)
[2018-04-21] MEDS: Sodium Chloride 0.9% 1000 ML 1,000 ML IV SCH ×2 (04:22→16:52)
[2018-04-21] MEDS: Advair Hfa 230/21 Mcg COMMON CANISTER IH SCH ×2 (07:31→20:06)
[2018-04-21 08:09] LABS: Hematocrit 39.8 % (42-50); Hemoglobin 13.4 gm/dl (12.5-18.0); Mean Cell Volume 83.3 fl (78-100); Mean Corpuscular Hgb Concent. 33.7 g/dl (32-36); Mean Platelet Volume 9.8 fl (6-9.5); Platelet Count 194 K/mm3 (150-450); Red Blood Count 4.78 M/mm3 (4.1-5.6); White Blood Count 7.7 K/mm3 (4.0-10.5)
[2018-04-21 08:54] LABS: ANION GAP 14.8 MEQ/L (5-15); BLOOD UREA NITROGEN 11 mg/dL (9-20); CHLORIDE 100 mmol/L (98-107); Carbon Dioxide 29 mmol/L (22-30); Creatinine 1 0.64 mg/dL (0.66-1.25); Glucose 146 mg/dL (74-106); SODIUM 140 mmol/L (137-145)
--- NOTE | 2018-04-21 09:08 | HP ---
HISTORY OF PRESENT ILLNESS: This is a 32 year-old patient of Dr. Rocha'zeinab who presented to the emergency department yesterday. He reports he was in a [place] bowling [place] watching his son jose around 1330 hours this afternoon when he started having joint pain and feeling dizzy. He reports he went to his car and tried breathing exercises because sometimes he feels this way with anxiety but that did not help and so he told his he was coming to the emergency room here at [facility]. He also reports he felt like he was going to pass out and had a headache. This morning he said he is tired from being up last night. He has a history of bacteremia 02/15/2018 at which time he had two separate blood cultures grow Enterobacter Cloacae. He has a current central line in place he thinks for a year and a half. It was placed at [facility] but when asked who placed it he said Dr. Colin. Dr. Colin is the merchandise coordinator who treats him for hemochromatosis. The patient reports he has blood drawn every six [address] at [facility] and often the lines have to be changed because they clot off. He reports this is the ninth line. It looks like from review of his outpatient chart he was diagnosed with hemochromatosis in 2013. I was called last night as he had blood cultures that were drawn from two peripheral sites at 1515 and 1600 hours and then one from his central line at 1712 hours. The one from his central line was drawn at 1712 hours I was called this and reported gram variable rods at 0402 today so less than 12 hours from when the culture was drawn. The lab aide reported to me today that it would gram-negative rods. There is no ID or sensitivity on this yet. REVIEW OF SYSTEMS: He denies any fever. No nausea or vomiting. No abdominal pain. No lower extremity edema. No rashes. Otherwise ROS as mentioned in HPI however ROS was limited due to patient drifting off to sleep after each question. PAST MEDICAL HISTORY: Diabetes mellitus type 2, hemochromatosis, anxiety, morbid obesity, liver disease. PAST SURGICAL HISTORY: Cholecystectomy, liver biopsy, multiple central lines. He reports a recent colonoscopy. MEDICATIONS: Please see the medication reconciliation list which I reviewed. ALLERGIES: TURMERIC. SOCIAL HISTORY: He denies any illicit drug use or any injection drug use. He reports he chews tobacco. He denies any alcohol. He reports he lives at home with his mother, sister and his three children. FAMILY HISTORY: Noncontributory. PHYSICAL EXAMINATION: VITAL SIGNS: Temperature current 97.4F, temperature max 99.3F, heart rate 70 to 111, respiratory rate 18 to 22, blood pressure 116 to 130 over 67 to 181, weight recorded at 157 kg. Oxygen saturation 94 to 95% on room air. GENERAL: The patient is a lying in bed in no acute distress. He answers questions appropriately but falls asleep quickly. CVS: He has a regular rate and rhythm. No murmurs, gallops or rubs are appreciated. CHEST: Clear to auscultation bilaterally. He has a tunnel central line located on his right anterior chest. ABDOMEN: Soft, mild tenderness just to the left of his umbilicus and when he coughs there is perhaps a small hernia there. EXTREMITIES: No clubbing, cyanosis or edema. SKIN: Warm, dry and intact. LABORATORY DATA AND TESTS: His white blood cell count on admission was 9.6 with 73% neutrophils, 12% bands, 15% lymphocytes. Repeat CBC this morning white blood cell count 10.2, neutrophils 68, bands 4 this would be after a dose of ceftriaxone. On admission glucose 194 and today 132. Hemoglobin A1C was 7.84. UA had greater than 500 glucose. Urine tox was negative. Ethanol alcohol level less than 10. He had a head CT done in the emergency department that was read as stable. Please see the radiologist for the full dictation. ASSESSMENT AND PLAN: 1) BACTEREMIA: After the patient's chart was reviewed and after we had UA taken I started him on Rocephin 1 gm IV every 24 hours, this was done at 2217 hours on 04/19/2018. His blood culture came back positive at 0400 hours on 04/20/2018 and will plan to continue with IV antibiotics. I have spoken with general surgeon, Dr. Yong Newsome, and he plans to remove the central line for us today. The patient has a peripheral IV started which is what we are using right now. We tried to contact the patient's merchandise coordinator. Dr. Zohra Calderon was covering and told the nurse that she did not know anything about the patient. We are unaware of who placed the initial central line at this time. I reviewed [place] without any results as to who would have placed that line. The patient reports that Dr. Colin placed it but to my knowledge Dr. Colin does not place tunneled central venous lines. Will plan to recheck the blood cultures after the line is removed. 2) DIABETES MELLITUS TYPE 2: Will continue with a low dose sliding scale of insulin. He is currently NPO for the upcoming procedure with the general surgeon. I have held his Metformin. 3) HEMOCHROMATOSIS: This is stable. His primary oncologist/merchandise coordinator may need contacted on Saturday so that they are aware that we to have the central line removed at least that is the plan currently. His hemoglobin is stable at this point. 4) HYPERTENSION: Currently well controlled with his current medications. His museum librarian is Dr. Kramer.
[2018-04-21] MEDS: Cozaar 50 MG PO SCH (09:43)
[2018-04-21] MEDS: CLARITIN 10 MG PO SCH (09:44)
[2018-04-21] MEDS: Januvia 50 MG PO SCH (09:44)
[2018-04-21] MEDS: Cymbalta 30 MG Capsule PO SCH (09:44)
[2018-04-21] MEDS: Klor Con 10 MEQ PO SCH (09:44)
[2018-04-21] MEDS: NORVASC 5 MG PO SCH (09:45)
[2018-04-21] MEDS: Singulair 10 MG PO SCH (09:45)
[2018-04-21] MEDS: ECOTRIN 81 MG PO SCH (09:45)
[2018-04-21] MEDS: Klonopin 0.5 MG PO SCH ×3 (09:45→22:00)
[2018-04-21] MEDS: Protonix 40MG Tablet PO SCH (09:45)
[2018-04-21] MEDS: Toprol Xl 100 MG PO SCH ×2 (09:45→22:00)
[2018-04-21] MEDS: LYRICA 75 MG CAP PO SCH ×3 (09:45→22:00)
[2018-04-21] MEDS: Lasix 40 MG PO SCH (09:45)
[2018-04-21] MEDS: Flonase NASAL NS SCH ×2 (09:49→21:59)
[2018-04-21] MEDS: LEVOFLOXACIN 750MG/150ML D5W 750 MG/150 ML BAG IV SCH (09:50)
[2018-04-21] MEDS ORDERED: FLUZONE QUAD (36mo-64yo) 2018-2019 SYRINGE IM ONE (10:00)
--- NOTE | 2018-04-21 10:21 | CONS ---
CONSULT DATE: 04/20/2018 HISTORY: This patient presents feeling sick for the last two days. He feels extremely sick after flushing his Groshong recently. He said he recently had a superficial infection of his Groshong catheter in his right chest wall. He noticed pus draining around the catheter. He was putting local topical antibiotics on the catheter. The pus resolved but now but now when he flushes the catheter he gets a little feverish, sick, lightheaded, dizzy, aches and pains all over his body. He presented to the emergency department last night. On preliminary blood cultures he was growing gram-negative rods from his Groshong and his peripheral cultures are negative so far. He denies any chest pain or shortness of breath, dysuria and abdominal pain. REVIEW OF SYSTEMS: Twelve systems reviewed and negative except for in the history of present illness. He is having headache, lightheadedness and pressure behind his eyes. He feels somewhat better than yesterday. PAST MEDICAL HISTORY: Hemochromatosis, diabetes, hypertension, cirrhosis. PAST SURGICAL HISTORY: Multiple Groshong catheters in bilateral chest. Ventral hernia repair. Cholecystectomy. MEDICATIONS: Reviewed MAR including aspirin. ALLERGIES: TURMERIC. SOCIAL HISTORY: No tobacco. No alcohol. FAMILY HISTORY: Noncontributory. PHYSICAL EXAMINATION: GENERAL: No acute distress. HEENT: Sclera nonicteric. Extraocular movements intact. NECK: Supple. No JVD. CHEST: Nonlabored breathing. Groshong catheter in the right chest wall with no purulent drainage. ABDOMEN: Soft, nondistended, nontender. EXTREMITIES: No peripheral edema. NEURO: Awake, alert and oriented. PSYCH: Appropriate mood and affect. LAB DATA AND TESTS: White blood cell 10.2, hemoglobin 12.7, PLT 197,000. Blood culture drawn from Groshong with gram durable rods. ASSESSMENT: Infected Groshong catheter, right chest wall tunneled central venous catheter. PLAN: Plan for removal today. I would recommend the patient remain with IV antibiotics through peripheral lines until his bacteremia is cleared and after that could have PICC line placed by radiology for fdc antibiotics with outpatient follow up for either replacement with a new Groshong or Port-A-Cath.
[2018-04-21 10:31] LABS: Eosinophil 3 % (0.00-3.0); Lymphocytes 38 % (24-44); Monocyte 2 % (0.0-12.0); Neutrophils 57 % (36.-66.); Platelet Estimate NORMAL (NORMAL); Total Cells Counted 100
[2018-04-21 10:32] LABS: ANISOCYTOSIS 1+; Toxic Granulation 1+
--- NOTE | 2018-04-21 10:32 | OP ---
SURGERY DATE/TIME: 04/20/2018 1200 PREOPERATIVE DIAGNOSIS: Infected right chest wall tunnel central venous catheter (Groshong catheter). POSTOPERATIVE DIAGNOSES: Infected right chest wall tunnel central venous catheter (Groshong catheter). PROCEDURES: 1) Removal of tunneled right chest wall central venous catheter (Groshong catheter). 2) IV sedation approximately 20 minutes. SURGEON: Yong Newsome M.D. ANESTHESIA: Local IV sedation with 1 mg of Versed and 50 mcg Fentanyl and 3 cc of 1% lidocaine. SPECIMEN: Groshong catheter tip for culture. ESTIMATED BLOOD LOSS: Minimal. COMPLICATIONS: None. FINDINGS: Intact Groshong catheter. PATIENT PRESENTATION: This patient presents with an infected Groshong catheter in his right chest wall. After discussing risks and benefits of surgical removal the patient wished to proceed. DESCRIPTION OF PROCEDURE: The patient was brought to the operating room, placed in supine on the cart. He was placed on a monitor. He was administered IV sedation with 1 mg of Versed and 50 mcg of Fentanyl. The right chest wall was prepped and draped in sterile fashion. 1% lidocaine was injected around the catheter. A small incision was made at the catheter exit site. A mosquito was used to bluntly dissect out the catheter cuff. After the cuff was dissected out the catheter was then removed and pressure held both the exit site and the site of the right IJ. Pressure was held for quite some time. The pressure was released. Minor hemostasis achieved at the skin level with electrocautery. The wounds were hemostatic. A pressure dressing was placed over the exit site. The catheter tip was sent for culture. The catheter appeared to be completely intact before cutting off the tip for culture. The patient was recovering in PACU in stable condition.
[2018-04-21] MEDS ORDERED: VERSED 5 MG/5 ML IV ONE (14:59)
[2018-04-21] MEDS ORDERED: SUBLIMAZE 100 MCG/2 ML IV ONE (14:59)
[2018-04-21] MEDS: Depakote EXTENDED RELEASE 250 MG PO SCH (21:59)
[2018-04-21] MEDS: ROCEPHIN 1 Gm-D5w 50 ml Bag** 1 G/50 ML IVPB IV SCH (22:00)
[2018-04-22] MEDS: Sodium Chloride 0.9% 1000 ML 1,000 ML IV SCH (03:35)
[2018-04-22] MEDS: Advair Hfa 230/21 Mcg COMMON CANISTER IH SCH (07:05)
[2018-04-22] MEDS: Cozaar 50 MG PO SCH (10:02)
[2018-04-22] MEDS: Cymbalta 30 MG Capsule PO SCH (10:02)
[2018-04-22] MEDS: CLARITIN 10 MG PO SCH (10:02)
[2018-04-22] MEDS: ECOTRIN 81 MG PO SCH (10:03)
[2018-04-22] MEDS: Januvia 50 MG PO SCH (10:04)
[2018-04-22] MEDS: Flonase NASAL NS SCH (10:04)
[2018-04-22] MEDS: Klonopin 0.5 MG PO SCH (10:05)
[2018-04-22] MEDS: Klor Con 10 MEQ PO SCH (10:06)
[2018-04-22] MEDS: LYRICA 75 MG CAP PO SCH (10:06)
[2018-04-22] MEDS: LEVOFLOXACIN 750MG/150ML D5W 750 MG/150 ML BAG IV SCH (10:06)
[2018-04-22] MEDS: Lasix 40 MG PO SCH (10:06)
[2018-04-22] MEDS: Toprol Xl 100 MG PO SCH (10:07)
[2018-04-22] MEDS: NORVASC 5 MG PO SCH (10:07)
[2018-04-22] MEDS: Singulair 10 MG PO SCH (10:07)
[2018-04-22] MEDS: Protonix 40MG Tablet PO SCH (10:07)
[2018-04-22 12:40] VITALS: BP 119/58; PULSE 86; O2SAT 98
[2018-04-22] MEDS: NovoLOG Insulin SQ PRN (12:47)
--- NOTE | 2018-04-23 13:29 | DS ---
DISCHARGE DIAGNOSIS: INFECTED GROSHONG CATHETER WITH ENTEROBACTER CLOACAE AND BACTEREMIA. HOSPITAL COURSE: The patient is a 32 year-old white male patient who presented to the emergency room not feeling well, dizzy and lightheaded. He apparently had been having increased elevation of his white count from time to time. He has Groshong catheter that will be used for polycythemia vera. He had phlebotomy performed to keep his white count down on an occasional basis. The patient was admitted to the hospital. Blood cultures were obtained and did grow Enterobacter Cloacae. The patient had been placed empirically on Keflex and Levaquin. The cultures did return back Enterobacter Cloacae which was sensitive to Levaquin. The patient feeling better was felt to be ready for discharge home on Levaquin orally at 750 mg for an additional ten days. He did have the Groshong catheter removed and cultured by Dr. Danyell Newsome. The patient was asked to follow up in my office in one week or return or call us if he has any further problems in the interim.
== END 2018-04-22 12:45 | disposition home or self-care (01) | DRG 253 ==
LOC: ED 14:33 → MED SURG 17:37 → OBSVTOIN 04-20 04:16
PROVIDERS: ADMIT Internal Medicine; ATTEND Family Medicine
PROC: 05PY03Z Removal of Infusion Device from Upper Vein, Open Approach (ICD-10-PCS; principal; 2018-04-20)
DX: T80.212A Local infection due to central venous catheter, initial encounter (principal); R78.81 Bacteremia; B96.89 Other specified bacterial agents as the cause of diseases classified elsewhere; E11.9 Type 2 diabetes mellitus without complications; Z79.4 Long term (current) use of insulin; E83.119 Hemochromatosis, unspecified; F41.9 Anxiety disorder, unspecified; E66.01 Morbid (severe) obesity due to excess calories; I10 Essential (primary) hypertension; K74.60 Unspecified cirrhosis of liver; R42 Dizziness and giddiness
CPT/HCPCS: 36000; 36415; 70450; 80048; 80053; 80307; 81001; 82962; 83036; 85025; 85652; 87040; 87070; 87077; 87186; 90686; 93005; 93041; 93268; 94640; 94762; 96360; 99285; G0008; J0696; J1956; J2250; J3010; A9270-GY; G0378; G0480

== ENCOUNTER 2018-09-25 19:56 | Emergency (ER) | payer OTHER ==
--- NOTE | 2018-09-25 20:19 | ERPHSYRPT ---
- History of Present Illness Time Seen by Provider: 09/25/18 20:10 Patient Subjective Stated Complaint: pt is alert and oriented. pt is ambulatory with a steady gait. pt comes in with c/o hand injury occuring 2 days ago. pt states he was playing a game with his son where they punch each others hands and he hurt his hand doing that. pt states his injury is to his right hand. pt is able to freely move hand. there is some very slight purple discoloration to his middle and ring finger. no swelling noted although pt states his hand was swollen "the size of a softball yesterday." pt denies any pain. no sensation loss noted. Triage Nursing Assessment: see above Physician History: 33 y/o right handed white male accidentally punched sons hand playing a game 2 days ago. pt states back of right hand very swollen. back of hand swelling improved but fingers swollen and bruised. Occurred: days ago (2) Method of Injury: direct blow Quality: aching (mild) Severity of Pain-Max: mild Severity of Pain-Current: mild Extremities Pain Location: hand: right, 2nd finger: right, 3rd finger: right, 4th finger: right Modifying Factors: Improves With: nothing Associated Symptoms: none Allergies/Adverse Reactions: adhesive tape Allergy (Verified 09/25/18 20:13) turmeric Allergy (Verified 02/15/18 18:38) Anaphylactic Reaction Home Medications: Divalproex Sodium [Depakote] 1,000 mg PO HS 10/17/16 [History] Duloxetine HCl [Cymbalta] 120 mg PO DAILY 10/17/16 [History] Losartan Potassium [Cozaar] 100 mg PO DAILY 10/17/16 [History] clonazePAM [Klonopin] 1 mg PO TID 10/17/16 [History] Furosemide 40 mg [Lasix 40 MG] 40 mg PO DAILY 12/28/16 [History] Potassium Chloride 8 meq PO DAILY 12/28/16 [History] Metoprolol Succinate 50 mg [Toprol Xl 50 MG] 100 mg PO BID 03/28/17 [ History] l Gasseri/B Bifidum/B Longum [Synchris Health Capsule] 1 each PO TID [History] Albuterol Sulfate [Ventolin Hfa] 3 puffs IH Q6HPRN PRN 12/12/17 [History] Amlodipine Besylate 5 mg PO DAILY 12/12/17 [History] Aspirin 81 mg PO DAILY 12/12/17 [History] Cetirizine HCl [Zyrtec] 10 mg PO DAILY 12/12/17 [History] Montelukast Sodium 10 mg [Singulair 10 MG] 10 mg PO DAILY 12/12/17 [History] Naproxen 375 mg [Naprosyn 375 mg] 375 mg PO BID 12/12/17 [History] Sitagliptin Phosphate [Januvia] 25 mg PO DAILY 12/12/17 [History] Fluticasone Propionate [Flonase Allergy Relief] 1 spray NS BID 02/15/18 [History ] Fluticasone/Salmeterol 500/50* [Advair 500-50 Diskus] 2 each IH BID 02/15/18 [History] Canagliflozin [Invokana] 100 mg PO DAILY 04/19/18 [History] Pregabalin [Lyrica 75 mg Cap] 75 mg PO TID 04/19/18 [History] Hx Tetanus, Diphtheria Vaccination/Date Given: Yes Hx Influenza Vaccination/Date Given: Yes Hx Pneumococcal Vaccination/Date Given: Yes Immunizations Up to Date: Yes - Review of Systems Constitutional: No Symptoms Eyes: No Symptoms Ears, Nose, & Throat: No Symptoms Respiratory: No Symptoms Cardiac: No Symptoms Abdominal/Gastrointestinal: No Symptoms Genitourinary Symptoms: No Symptoms Musculoskeletal: Injury Skin: No Symptoms Neurological: No Symptoms Psychological: No Symptoms Endocrine: No Symptoms Hematologic/Lymphatic: No Symptoms Immunological/Allergic: No Symptoms All Other Systems: Reviewed and Negative - Past Medical History Pertinent Past Medical History: Yes Neurological History: No Pertinent History ENT History: No Pertinent History Cardiac History: Arrhythmia, High Cholesterol, Hypertension Respiratory History: Asthma, Bronchitis Endocrine Medical History: Diabetes Type II, Other Musculoskeletal History: Fractures, Osteoarthritis GI Medical History: Gallbladder Disease, Hernia, Other History: No Pertinent History Psycho-Social History: Anxiety, Depression, Other Male Reproductive Disorders: No Pertinent History Other Medical History: liver disease, Hemachromatosis. Pt denies COPD but does have hx of asthmatic bronchitis. Tachycardia - Past Surgical History Past Surgical History: Yes Neuro Surgical History: No Pertinent History Cardiac: No Pertinent History Respiratory: No Pertinent History Gastrointestinal: Cholecystectomy, Hernia Repair Genitourinary: No Pertinent History Musculoskeletal: Other Male Surgical History: No Pertinent History Other Surgical History: central line Groshong CV catheter X 9 - Social History Smoking Status: Never smoker Exposure to second hand smoke: Yes Drug Use: none Patient Lives Alone: Yes - Nursing Vital Signs Nursing Vital Signs: Initial Vital Signs Temperature 98.4 F 09/25/18 20:06 Pulse Rate 107 H 09/25/18 20:06 Respiratory Rate 20 09/25/18 20:06 Blood Pressure 149/83 09/25/18 20:06 O2 Sat by Pulse Oximetry 95 09/25/18 20:06 Pain Scale Pain Intensity 0 - Physical Exam General Appearance: no apparent distress, alert Eyes, Ears, Nose, Throat Exam: normal ENT inspection, moist mucous membranes Neck Exam: normal inspection, non-tender, supple, full range of motion Cardiovascular/Respiratory Exam: chest non-tender Abdominal Exam: non-tender Back Exam: normal inspection, normal range of motion, No CVA tenderness, No vertebral tenderness Shoulder Exam: normal inspection, non-tender, no evidence of injury, normal ROM Elbow/Forearm Exam: normal inspection, non-tender, no evidence of injury, normal ROM Wrist Exam: normal inspection, non-tender, no evidence of injury, normal ROM Hand Exam: normal ROM, ecchymosis, soft tissue tenderness (mild), swelling Neuro/Tendon Exam: normal sensation, normal motor functions, normal tendon functions Mental Status Exam: alert, oriented x 3, cooperative Skin Exam: warm, dry, ecchymosis SpO2 Interpretation: borderline oxygenation SpO2: 95 O2 Delivery: Room Air - Course Nursing assessment & vital signs reviewed: Yes Ordered Tests: Active Orders 24 hr Category Date Time Status HAND (MINIMUM 3 VIEWS) Stat Exams 09/25/18 20:19 Taken - Progress Progress: unchanged Progress Note: 09/25/18 21:00 xray right hand-no acute fx or dislocation Counseled pt/family regarding: diagnosis, need for follow-up, rad results - Departure Departure Disposition: Home Clinical Impression: Contusion of hand, right Condition: Stable Critical Care Time: No Referrals: TIGRE HARDIN [Primary Care Provider] - Additional Instructions: soak right hand in ice water 3 times daily for 3 days. tylenol and ibuprofen for pain
[2018-09-25 21:09] VITALS: BP 145/58; PULSE 102; O2SAT 97
--- NOTE | 2018-09-26 09:24 | XRAY ---
Indication: Pain following punching injury. Comparison: September 06, 2017. 3 views of the right hand obtained. Again no bony, articular, or soft tissue abnormalities.
== END 2018-09-25 21:16 | disposition home or self-care (01) ==
LOC: ED 19:56
DX: S60.221A Contusion of right hand, initial encounter (principal); W51.XXXA Accidental striking against or bumped into by another person, initial encounter; E78.00 Pure hypercholesterolemia, unspecified; I10 Essential (primary) hypertension; J45.909 Unspecified asthma, uncomplicated; E11.9 Type 2 diabetes mellitus without complications; M19.90 Unspecified osteoarthritis, unspecified site; F41.8 Other specified anxiety disorders; K76.9 Liver disease, unspecified
CPT/HCPCS: 73130; 99283

== ENCOUNTER 2019-04-16 21:11 | Emergency (ER) | payer OTHER ==
--- NOTE | 2019-04-16 21:15 | ERPHSYRPT ---
- History of Present Illness Time Seen by Provider: 04/16/19 21:15 Source: patient, family Exam Limitations: no limitations Physician History: 33 y/o obese white male with h/o palpitations and htn. 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 pt has had intermittent localized left upper sharp cp that does not radiate. when pain comes, usually every 5 minutes, it takes his breath away. no soa, no abd pain. pt took a baby asa today. pt did not take any ntg. Timing/Duration: day(s) (2), intermittent, worse (more frequent) Quality: sharpness Location: other (left upper ant) Chest Pain Radiation: no radiation Severity of Pain-Max: mild Severity of Pain-Current: mild Nitro Today/Relief: no nitro taken today Aspirin Treatment Today: 81 mg x 1, provided at home Associated Symptoms: denies symptoms Prior Chest Pain/Cardiac Workup: cardiac cath (pt has had cardiac work up in the past) Allergies/Adverse Reactions: adhesive tape Allergy (Verified 04/16/19 21:42) turmeric Allergy (Verified 04/16/19 21:42) Anaphylactic Reaction Home Medications: Divalproex Sodium [Depakote] 1,000 mg PO HS 10/17/16 [History] Duloxetine HCl [Cymbalta] 120 mg PO DAILY 10/17/16 [History] Losartan Potassium [Cozaar] 100 mg PO DAILY 10/17/16 [History] clonazePAM [Klonopin] 1 mg PO TID 10/17/16 [History] Furosemide 40 mg [Lasix 40 MG] 40 mg PO DAILY 12/28/16 [History] Potassium Chloride 8 meq PO DAILY 12/28/16 [History] Metoprolol Succinate 50 mg [Toprol Xl 50 MG] 100 mg PO BID 03/28/17 [ History] l Gasseri/B Bifidum/B Longum [[facility] Capsule] 1 each PO TID [History] Albuterol Sulfate [Ventolin Hfa] 3 puffs IH Q6HPRN PRN 12/12/17 [History] Amlodipine Besylate 5 mg PO DAILY 12/12/17 [History] Aspirin 81 mg PO DAILY 12/12/17 [History] Cetirizine HCl [Zyrtec] 10 mg PO DAILY 12/12/17 [History] Montelukast Sodium 10 mg [Singulair 10 MG] 10 mg PO DAILY 12/12/17 [History] Naproxen 375 mg [Naprosyn 375 mg] 375 mg PO BID 12/12/17 [History] Sitagliptin Phosphate [Januvia] 25 mg PO DAILY 12/12/17 [History] Fluticasone Propionate [Flonase Allergy Relief] 1 spray NS BID 02/15/18 [History ] Fluticasone/Salmeterol 500/50* [Advair 500-50 Diskus] 2 each IH BID 02/15/18 [History] Canagliflozin [Invokana] 100 mg PO DAILY 04/19/18 [History] Pregabalin [Lyrica 75 mg Cap] 75 mg PO TID 04/19/18 [History] Hx Tetanus, Diphtheria Vaccination/Date Given: Yes Hx Influenza Vaccination/Date Given: Yes Hx Pneumococcal Vaccination/Date Given: Yes - Review of Systems Constitutional: No Symptoms Eyes: No Symptoms Ears, Nose, & Throat: No Symptoms Respiratory: No Symptoms Cardiac: Chest Pain Abdominal/Gastrointestinal: No Symptoms Genitourinary Symptoms: No Symptoms Musculoskeletal: No Symptoms Skin: No Symptoms Neurological: No Symptoms Psychological: No Symptoms Endocrine: No Symptoms Hematologic/Lymphatic: No Symptoms Immunological/Allergic: No Symptoms All Other Systems: Reviewed and Negative - Past Medical History Pertinent Past Medical History: Yes Neurological History: No Pertinent History ENT History: No Pertinent History Cardiac History: Arrhythmia, High Cholesterol, Hypertension Respiratory History: Asthma, Bronchitis Endocrine Medical History: Diabetes Type II, Other Musculoskeletal History: Fractures, Osteoarthritis GI Medical History: Gallbladder Disease, Hernia, Other History: No Pertinent History Psycho-Social History: Anxiety, Depression, Other Male Reproductive Disorders: No Pertinent History Other Medical History: liver disease, Hemachromatosis. Pt denies COPD but does have hx of asthmatic bronchitis. Tachycardia - Past Surgical History Past Surgical History: Yes Neuro Surgical History: No Pertinent History Cardiac: No Pertinent History Respiratory: No Pertinent History Gastrointestinal: Cholecystectomy, Hernia Repair Genitourinary: No Pertinent History Musculoskeletal: Other Male Surgical History: No Pertinent History Other Surgical History: central line Groshong CV catheter X 9 - Social History Smoking Status: Never smoker Exposure to second hand smoke: Yes Drug Use: none Patient Lives Alone: Yes - Nursing Vital Signs Nursing Vital Signs: Initial Vital Signs Pulse Rate 96 H 04/16/19 21:22 Respiratory Rate 20 04/16/19 21:22 Blood Pressure 146/85 04/16/19 21:22 O2 Sat by Pulse Oximetry 99 04/16/19 21:22 Pain Scale Pain Intensity 0 - Physical Exam General Appearance: no apparent distress, alert, anxiety Eye Exam: PERRL/EOMI, eyes nml inspection Ears, Nose, Throat Exam: normal ENT inspection, moist mucous membranes Neck Exam: normal inspection, non-tender, supple, full range of motion Respiratory Exam: normal breath sounds, chest tenderness, lungs clear, No respiratory distress, No airway intact Cardiovascular Exam: regular rate/rhythm, normal heart sounds, normal peripheral pulses Gastrointestinal/Abdomen Exam: soft, normal bowel sounds, No tenderness Rectal Exam: not done Back Exam: normal inspection, normal range of motion, No CVA tenderness, No vertebral tenderness Extremity Exam: normal inspection, normal range of motion, pelvis stable Neurologic Exam: alert, oriented x 3, cooperative, manufacturing group leader II-XII nml as tested Skin Exam: normal color, warm, dry Lymphatic Exam: No adenopathy SpO2 Interpretation: normal O2 Delivery: Room Air - Course Nursing assessment & vital signs reviewed: Yes EKG Interpreted by Me: RATE (95), Sinus Rhythm, NORMAL AXIS, NORMAL INTERVALS, NORMAL QRS, Other (comparison ekg 04/19/18) Ordered Tests: Active Orders 24 hr Category Date Time Status Showcase Maker STAT Care 04/16/19 21:25 Active EKG-ER Only STAT Care 04/16/19 21:24 Active IV Insertion STAT Care 04/16/19 21:24 Active CHEST 1 VIEW (PORTABLE) Stat Exams 04/16/19 21:25 Ordered CBC W DIFF Stat Lab 04/16/19 21:57 Completed CMP Stat Lab 04/16/19 21:57 Completed D-DIMER QUANTITATION Stat Lab 04/16/19 21:57 Completed Manual Differential NC Stat Lab 04/16/19 21:57 Completed NT PRO BNP Stat Lab 04/16/19 21:57 Completed TROPONIN Q3H Lab 04/16/19 21:57 Completed TROPONIN Q3H Lab 04/17/19 00:30 Ordered TROPONIN Q3H Lab 04/17/19 03:30 Ordered TROPONIN Q3H Lab 04/17/19 06:30 Ordered TROPONIN Q3H Lab 04/17/19 09:30 Ordered Medication Summary Generic Name Dose Route Start Last Admin Trade Name Joseq PRN Reason Stop Dose Admin Morphine Sulfate 4 mg 04/16/19 22:47 Morphine Sulfate 4 Mg Inj IV 04/16/19 22:48 STAT ONE Nitroglycerin 0.4 mg 04/16/19 21:39 04/16/19 21:45 Nitrostat 0.4 Mg Tablet SL 05/16/19 21:38 0.4 mg PRN PRN Administration CHEST PAIN Ondansetron HCl 4 mg 04/16/19 22:47 Zofran 4 Mg/2 Ml Vial IV 04/16/19 22:48 STAT ONE Discontinued Medications Generic Name Dose Route Start Last Admin Trade Name Jose Antonio PRN Reason Stop Dose Admin Aspirin 324 mg 04/16/19 21:24 04/16/19 22:02 Baby Aspirin 81 Mg Chew PO 04/16/19 21:25 Not Given STAT ONE Aspirin 243 mg 04/16/19 21:48 04/16/19 21:51 Baby Aspirin 81 Mg Chew PO 04/16/19 21:49 243 mg STAT ONE Administration Lab/Rad Data: Laboratory Result Diagrams 04/16/19 21:57 04/16/19 21:57 Laboratory Results 04/16/19 04/16/19 04/16/19 Range/Units 21:57 21:57 21:57 WBC (4.0-10.5) K/mm3 RBC (4.1-5.6) M/mm3 Hgb (12.5-18.0) gm/dl Hct (42-50) % MCV (78-100) fl MCH (26-32) pg MCHC (32-36) g/dl RDW (11.5-14.0) % Plt Count (150-450) K/mm3 MPV (6-9.5) fl D-Dimer < 156 L (215-500) ng/mL Sodium 137 (137-145) mmol/L Potassium 4.6 (3.5-5.1) mmol/L Chloride 96 L (98-107) mmol/L Carbon Dioxide 25 (22-30) mmol/L Anion Gap 20.4 H (5-15) MEQ/L BUN 12 (9-20) mg/dL Creatinine 0.59 L (0.66-1.25) mg/dL Estimated GFR > 60.0 ML/MIN Glucose 259 H (74-106) mg/dL Calcium 9.4 (8.4-10.2) mg/dL Total Bilirubin 0.30 (0.2-1.3) mg/dL AST 39 (17-59) U/L ALT 53 H (0-50) U/L Alkaline Phosphatase 62 (38-126) U/L Troponin I < 0.012 (0.000-0.034) ng/mL NT-Pro-B Natriuret Pep 25.6 (0-450) pg/mL Serum Total Protein 7.2 (6.3-8.2) g/dL Albumin 4.3 (3.5-5.0) g/dL 04/16/19 Range/Units 21:57 WBC 8.2 (4.0-10.5) K/mm3 RBC 5.09 (4.1-5.6) M/mm3 Hgb 15.9 (12.5-18.0) gm/dl Hct 44.9 (42-50) % MCV 88.2 (78-100) fl MCH 31.2 (26-32) pg MCHC 35.4 (32-36) g/dl RDW 13.7 (11.5-14.0) % Plt Count 232 (150-450) K/mm3 MPV 10.4 H (6-9.5) fl D-Dimer (215-500) ng/mL Sodium (137-145) mmol/L Potassium (3.5-5.1) mmol/L Chloride (98-107) mmol/L Carbon Dioxide (22-30) mmol/L Anion Gap (5-15) MEQ/L BUN (9-20) mg/dL Creatinine (0.66-1.25) mg/dL Estimated GFR ML/MIN Glucose (74-106) mg/dL Calcium (8.4-10.2) mg/dL Total Bilirubin (0.2-1.3) mg/dL AST (17-59) U/L ALT (0-50) U/L Alkaline Phosphatase (38-126) U/L Troponin I (0.000-0.034) ng/mL NT-Pro-B Natriuret Pep (0-450) pg/mL Serum Total Protein (6.3-8.2) g/dL Albumin (3.5-5.0) g/dL - Progress Progress: improved, re-examined Air Movement: good Progress Note: 04/16/19 22:47 cxr-no acute process Blood Culture(s) Obtained: No Antibiotics given: No Counseled pt/family regarding: lab results, diagnosis, need for follow-up, rad results - Departure Departure Disposition: Home Clinical Impression: Chest pain Condition: Stable Critical Care Time: No Referrals: TIGRE HARDIN [Primary Care Provider] - Additional Instructions: take your medications as prescribed. follow up with your tank car reconditioner tomorrow to arrange for further management
[2019-04-16] MEDS ORDERED: BABY ASPIRIN 81 MG CHEW PO ONE ×2 (21:24→21:48)
[2019-04-16] MEDS ORDERED: Nitrostat 0.4 MG Tablet SL PRN (21:39)
[2019-04-16 22:00] LABS: Hematocrit 44.9 % (42-50); Hemoglobin 15.9 gm/dl (12.5-18.0); Mean Cell Volume 88.2 fl (78-100); Mean Corpuscular Hemoglobin 31.2 pg (26-32); Mean Corpuscular Hgb Concent. 35.4 g/dl (32-36); Mean Platelet Volume 10.4 fl (6-9.5); Platelet Count 232 K/mm3 (150-450); Red Blood Count 5.09 M/mm3 (4.1-5.6); Red Cell Distribution Width 13.7 % (11.5-14.0); White Blood Count 8.2 K/mm3 (4.0-10.5)
[2019-04-16 22:32] LABS: ALBUMIN 4.3 g/dL (3.5-5.0); ALKALINE PHOSPHATASE 62 U/L (38-126); ANION GAP 20.4 MEQ/L (5-15); BLOOD UREA NITROGEN 12 mg/dL (9-20); CHLORIDE 96 mmol/L (98-107); Calcium 9.4 mg/dL (8.4-10.2); Carbon Dioxide 25 mmol/L (22-30); Creatinine 1 0.59 mg/dL (0.66-1.25); Glucose 259 mg/dL (74-106); NT PRO BNP 25.6 pg/mL (0-450); Potassium 4.6 mmol/L (3.5-5.1); SGOT/AST 39 U/L (17-59); SGPT/ALT 53 U/L (0-50); SODIUM 137 mmol/L (137-145); Total Protein 7.2 g/dL (6.3-8.2)
[2019-04-16] MEDS ORDERED: MORPHINE SULFATE 4 MG INJ IV ONE (22:47)
[2019-04-16] MEDS ORDERED: Zofran 4 MG/2 ML VIAL IV ONE (22:47)
[2019-04-16] MEDS ORDERED: Zofran 4 MG/2 ML VIAL ONE (22:51)
[2019-04-16] MEDS ORDERED: MORPHINE SULFATE 4 MG INJ ONE (22:52)
[2019-04-16 23:24] VITALS: BP 141/87; PULSE 87; O2SAT 99
[2019-04-17] LABS: Eosinophil 2 % (0.00-3.0); Lymphocytes 41 % (24-44); Monocyte 7 % (0.0-12.0); Neutrophils 50 % (36.-66.); Platelet Estimate NORMAL (NORMAL); Polychromasia RARE; Total Cells Counted 100
--- NOTE | 2019-04-17 09:11 | XRAY ---
Indication: Chest pain. Comparison: March 17, 2019. Portable apical lordotic chest again demonstrates normal heart and lungs with incidental calcified granulomas. Bony thorax intact. No new/acute findings.
== END 2019-04-16 23:24 | disposition home or self-care (01) ==
LOC: ED 21:11
DX: R07.9 Chest pain, unspecified (principal)
CPT/HCPCS: 36000; 36415; 71045; 80053; 83880; 84484; 85025; 85379; 93005; 93041; 96374; 96375; 99284; J2270; J2405; A9270-GY

== ENCOUNTER 2019-06-24 18:27 | Emergency (ER) | payer OTHER ==
--- NOTE | 2019-06-24 19:03 | ERPHSYRPT ---
- History of Present Illness Time Seen by Provider: 06/24/19 19:00 Source: patient Exam Limitations: no limitations Physician History: patient came to the ER for her high blood sugar. Patient states it was a 52 at home. In the ER it is 318. Patient says that he is shortness of breath but he is very calm and comfortable while talking to me about it. Pulse ox is 90% at room air. Patient says that he has had a similar episode in the past and he was told that it was an anxiety. Patient has had a central line infection and sepsis as 6 months ago when he was in the ICU at this hospital. Patient says that he has a hemochromatosis and he gets blood out of his body every few months. He used to get it out through central line but now the use of peripheral line for that. Timing/Duration: today Severity: moderate Modifying Factors: Worsens With: eating, immobilization, ibuprofen, nothing Associated Symptoms: shortness of breath, malaise, No nausea, No vomiting, No abdominal pain, No heartburn, No diaphoresis, No cough, No chills, No headaches , No loss of appetite, No rash, No syncope, No seizure Allergies/Adverse Reactions: adhesive tape Allergy (Verified 06/24/19 19:04) turmeric Allergy (Verified 06/24/19 19:04) Anaphylactic Reaction Home Medications: Divalproex Sodium [Depakote] 1,000 mg PO HS 10/17/16 [History] Duloxetine HCl [Cymbalta] 120 mg PO DAILY 10/17/16 [History] Losartan Potassium [Cozaar] 100 mg PO DAILY 10/17/16 [History] clonazePAM [Klonopin] 1 mg PO TID 10/17/16 [History] Furosemide 40 mg [Lasix 40 MG] 40 mg PO DAILY 12/28/16 [History] Potassium Chloride 8 meq PO DAILY 12/28/16 [History] Metoprolol Succinate 50 mg [Toprol Xl 50 MG] 100 mg PO BID 03/28/17 [ History] l Gasseri/B Bifidum/B Longum [[employer] [facility] Capsule] 1 each PO TID [History] Albuterol Sulfate [Ventolin Hfa] 3 puffs IH Q6HPRN PRN 12/12/17 [History] Amlodipine Besylate 5 mg PO DAILY 12/12/17 [History] Aspirin 81 mg PO DAILY 12/12/17 [History] Cetirizine HCl [Zyrtec] 10 mg PO DAILY 12/12/17 [History] Montelukast Sodium 10 mg [Singulair 10 MG] 10 mg PO DAILY 12/12/17 [History] Naproxen 375 mg [Naprosyn 375 mg] 375 mg PO BID 12/12/17 [History] Sitagliptin Phosphate [Januvia] 25 mg PO DAILY 12/12/17 [History] Fluticasone Propionate [Flonase Allergy Relief] 1 spray NS BID 02/15/18 [History ] Fluticasone/Salmeterol 500/50* [Advair 500-50 Diskus] 2 each IH BID 02/15/18 [History] Canagliflozin [Invokana] 100 mg PO DAILY 04/19/18 [History] Pregabalin [Lyrica 75 mg Cap] 75 mg PO TID 04/19/18 [History] Hx Tetanus, Diphtheria Vaccination/Date Given: Yes Hx Influenza Vaccination/Date Given: Yes Hx Pneumococcal Vaccination/Date Given: Yes - Review of Systems Constitutional: Malaise, No Fever, No Chills Eyes: No Symptoms Ears, Nose, & Throat: No Symptoms Respiratory: Dyspnea, No Cough Cardiac: No Chest Pain, No Edema, No Syncope Abdominal/Gastrointestinal: No Abdominal Pain, No Nausea, No Vomiting, No Diarrhea Genitourinary Symptoms: No Dysuria Musculoskeletal: No Back Pain, No Neck Pain Skin: No Rash Neurological: No Dizziness, No Focal Weakness, No Sensory Changes Psychological: No Symptoms Endocrine: No Symptoms All Other Systems: Reviewed and Negative - Past Medical History Pertinent Past Medical History: Yes Neurological History: No Pertinent History ENT History: No Pertinent History Cardiac History: Arrhythmia, High Cholesterol, Hypertension Respiratory History: Asthma, Bronchitis Endocrine Medical History: Diabetes Type II, Other Musculoskeletal History: Fractures, Osteoarthritis GI Medical History: Gallbladder Disease, Hernia, Other History: No Pertinent History Psycho-Social History: Anxiety, Depression, Other Male Reproductive Disorders: No Pertinent History Other Medical History: liver disease, Hemachromatosis. Pt denies COPD but does have hx of asthmatic bronchitis. Tachycardia - Past Surgical History Past Surgical History: Yes Neuro Surgical History: No Pertinent History Cardiac: No Pertinent History Respiratory: No Pertinent History Gastrointestinal: Cholecystectomy, Hernia Repair Genitourinary: No Pertinent History Musculoskeletal: Other Male Surgical History: No Pertinent History Other Surgical History: central line Groshong CV catheter X 9 - Social History Smoking Status: Never smoker Exposure to second hand smoke: Yes Drug Use: none Patient Lives Alone: Yes - Nursing Vital Signs Nursing Vital Signs: Initial Vital Signs Temperature 98.1 F 06/24/19 18:56 Pulse Rate 121 H 06/24/19 18:56 Respiratory Rate 18 06/24/19 18:56 Blood Pressure 156/109 06/24/19 18:56 O2 Sat by Pulse Oximetry 98 06/24/19 18:56 Pain Scale Pain Intensity 0 - Physical Exam General Appearance: alert, anxiety Eye Exam: PERRL/EOMI, eyes nml inspection Ears, Nose, Throat Exam: normal ENT inspection, TMs normal, pharynx normal, moist mucous membranes Neck Exam: normal inspection, non-tender, supple, full range of motion Respiratory Exam: normal breath sounds, lungs clear, No respiratory distress Cardiovascular Exam: regular rate/rhythm, normal heart sounds, normal peripheral pulses Gastrointestinal/Abdomen Exam: soft, normal bowel sounds, No tenderness, No mass Back Exam: normal inspection, normal range of motion, No CVA tenderness, No vertebral tenderness Extremity Exam: normal inspection, normal range of motion, pelvis stable Neurologic Exam: alert, oriented x 3, cooperative, normal mood/affect, nml cerebellar function, nml station & gait, sensation nml, No motor deficits Skin Exam: normal color, warm, dry, No rash Lymphatic Exam: No adenopathy - Course Nursing assessment & vital signs reviewed: Yes Ordered Tests: Active Orders 24 hr Category Date Time Status Ruffling Machine Operator STAT Care 06/24/19 19:13 Active EKG-ER Only STAT Care 06/24/19 19:12 Active IV Insertion STAT Care 06/24/19 19:12 Active CHEST 1 VIEW (PORTABLE) Stat Exams 06/24/19 19:13 Taken CBC W DIFF Stat Lab 06/24/19 19:35 Completed CK-Creatinine Phosphokinase Stat Lab 06/24/19 19:35 Completed CMP Stat Lab 06/24/19 19:35 Completed D-DIMER QUANTITATION Stat Lab 06/24/19 19:35 Received Manual Differential NC Stat Lab 06/24/19 19:35 Completed NT PRO BNP Stat Lab 06/24/19 19:35 Completed TROPONIN Q3H Lab 06/24/19 19:35 Completed TROPONIN Q3H Lab 06/24/19 22:15 Ordered TROPONIN Q3H Lab 06/25/19 01:15 Ordered TROPONIN Q3H Lab 06/25/19 04:15 Ordered TROPONIN Q3H Lab 06/25/19 07:15 Ordered Urine Triage Profile Stat Lab 06/24/19 19:13 Uncollected Medication Summary Discontinued Medications Generic Name Dose Route Start Last Admin Trade Name Freq PRN Reason Stop Dose Admin Aspirin 324 mg 06/24/19 19:12 Baby Aspirin 81 Mg Chew PO 06/24/19 19:13 STAT ONE Metoprolol Tartrate 25 mg 06/24/19 19:12 Lopressor 25mg Tab PO 06/24/19 19:13 STAT ONE Lab/Rad Data: Laboratory Result Diagrams 06/24/19 19:35 06/24/19 19:35 Laboratory Results 06/24/19 06/24/19 06/24/19 Range/Units 19:35 19:35 19:35 WBC 5.4 (4.0-10.5) K/mm3 RBC 4.96 (4.1-5.6) M/mm3 Hgb 15.0 (12.5-18.0) gm/dl Hct 43.3 (42-50) % MCV 87.3 (78-100) fl MCH 30.2 (26-32) pg MCHC 34.6 (32-36) g/dl RDW 12.9 (11.5-14.0) % Plt Count 192 (150-450) K/mm3 MPV 10.5 H (6-9.5) fl Sodium 136 L (137-145) mmol/L Potassium 4.1 (3.5-5.1) mmol/L Chloride 96 L (98-107) mmol/L Carbon Dioxide 27 (22-30) mmol/L Anion Gap 16.9 H (5-15) MEQ/L BUN 10 (9-20) mg/dL Creatinine 0.71 (0.66-1.25) mg/dL Estimated GFR > 60.0 ML/MIN Glucose 319 H (74-106) mg/dL Calcium 9.6 (8.4-10.2) mg/dL Total Bilirubin 0.40 (0.2-1.3) mg/dL AST 83 H (17-59) U/L ALT 75 H (0-50) U/L Alkaline Phosphatase 72 (38-126) U/L Creatine Kinase 124 (55-170) U/L Troponin I < 0.012 (0.000-0.034) ng/mL NT-Pro-B Natriuret Pep 11.6 (0-450) pg/mL Serum Total Protein 7.5 (6.3-8.2) g/dL Albumin 4.4 (3.5-5.0) g/dL - Progress Progress: improved Progress Note: 06/24/19 20:32 patient is on metformin and Januviafor his diabetes for few years.advice patient to see continuous drier helper for her diabetes and also see PCP for blood pressure management. 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 Advised patient to see PCP for further management of his blood sugar and a blood pressure. Patient asymptomatic in the ER. No acute life or limb threatening condition on discharge.
[2019-06-24] MEDS ORDERED: Lopressor 25MG Tab PO ONE (19:12)
[2019-06-24] MEDS ORDERED: BABY ASPIRIN 81 MG CHEW PO ONE (19:12)
[2019-06-24 19:35] LABS: Hematocrit 43.3 % (42-50); Mean Cell Volume 87.3 fl (78-100); Mean Corpuscular Hemoglobin 30.2 pg (26-32); Mean Corpuscular Hgb Concent. 34.6 g/dl (32-36); Mean Platelet Volume 10.5 fl (6-9.5); Platelet Count 192 K/mm3 (150-450); Red Blood Count 4.96 M/mm3 (4.1-5.6); Red Cell Distribution Width 12.9 % (11.5-14.0); White Blood Count 5.4 K/mm3 (4.0-10.5)
[2019-06-24 20:16] LABS: ALBUMIN 4.4 g/dL (3.5-5.0); ALKALINE PHOSPHATASE 72 U/L (38-126); ANION GAP 16.9 MEQ/L (5-15); BLOOD UREA NITROGEN 10 mg/dL (9-20); CHLORIDE 96 mmol/L (98-107); CK-Creatinine Phosphokinase 124 U/L (55-170); Calcium 9.6 mg/dL (8.4-10.2); Carbon Dioxide 27 mmol/L (22-30); Creatinine 1 0.71 mg/dL (0.66-1.25); Glucose 319 mg/dL (74-106); NT PRO BNP 11.6 pg/mL (0-450); Potassium 4.1 mmol/L (3.5-5.1); SGOT/AST 83 U/L (17-59); SGPT/ALT 75 U/L (0-50); SODIUM 136 mmol/L (137-145); Total Protein 7.5 g/dL (6.3-8.2)
[2019-06-24] MEDS ORDERED: NovoLIN R SQ ONE (20:31)
[2019-06-24] MEDS ORDERED: Lopressor 25MG Tab ONE (20:31)
[2019-06-24] MEDS ORDERED: Catapres 0.1 MG PO ONE (20:35)
[2019-06-24] MEDS ORDERED: NovoLIN R ONE (20:41)
[2019-06-24] MEDS ORDERED: Catapres 0.1 MG ONE (20:42)
[2019-06-24 22:05] VITALS: O2SAT 97
[2019-06-24 22:06] VITALS: BP 147/94; PULSE 104
[2019-06-25 01:49] LABS: Basophil 1 % (0.0-1.0); Eosinophil 2 % (0.00-3.0); Lymphocytes 30 % (24-44); Monocyte 7 % (0.0-12.0); Neutrophils 60 % (36.-66.); Platelet Estimate NORMAL (NORMAL); Total Cells Counted 100; Toxic Granulation RARE
--- NOTE | 2019-06-25 08:54 | XRAY ---
Indication: Short of breath. Comparison: April 16, 2019. Portable apical lordotic chest again demonstrates normal heart and lungs with incidental calcified granulomas. Bony thorax intact. No new/acute findings.
== END 2019-06-24 21:55 | disposition home or self-care (01) ==
LOC: ED 18:27
DX: E11.65 Type 2 diabetes mellitus with hyperglycemia (principal); Z79.4 Long term (current) use of insulin; I10 Essential (primary) hypertension; F41.1 Generalized anxiety disorder
CPT/HCPCS: 36415; 71045; 80053; 82550; 83880; 84484; 85025; 85379; 93005; 93041; 96372; 99284; A9270-GY

== ENCOUNTER 2019-06-27 18:17 | Emergency (ER) | payer OTHER ==
[2019-06-27] MEDS ORDERED: Sodium Chloride 0.9% 1000 ML 1,000 ML IV STA (18:39)
[2019-06-27] MEDS ORDERED: TYLENOL 325 MG PO ONE (18:39)
--- NOTE | 2019-06-27 18:43 | ERPHSYRPT ---
- History of Present Illness Source: patient Patient Subjective Stated Complaint: PT HERE FOR MULTI COS. HE STATES FOR OVER 2 WEEKS NOW HE HAS HAD BRONCHITIS, CHILLS, HEADACHE, NAUSEA, RUNNY NOSE, COUGH, DIZZINESS OFF AND ON, AND ANXIETY, HE HAS BEEN SEEN TWICE FOR THESE SYPTOMS. Triage Nursing Assessment: PT ALERT, WALKED IN, RESP EASY, SKIN W/D/P. MOVES ALL EXT WELL, DRY COUGH, HE STATES HE WAS ABLE TO EAT SUPPER PRIOR TO COMING TO THE ER, MUCUS MEMBRANES MOIAST Timing/Duration: gradual onset Severity: moderate Associated Symptoms: ear pain (R), ear pain (L), cough, fever, chills, dizziness , nasal congestion/drainage, sore throat Hx Tetanus, Diphtheria Vaccination/Date Given: Yes Hx Influenza Vaccination/Date Given: No Hx Pneumococcal Vaccination/Date Given: No Immunizations Up to Date: Yes <TREMAYNE,DENISE - Last Filed: 06/27/19 19:00> <WAYNE (ROSA TILLMAN)ASAF - Last Filed: 06/27/19 20:48> - History of Present Illness Time Seen by Provider: 06/27/19 18:40 Physician History: PATIENT STATES FOR OVER 2 WEEKS NOW HE HAS HAD BRONCHITIS, CHILLS, HEADACHE, NAUSEA, RUNNY NOSE, COUGH, DIZZINESS OFF AND ON, AND ANXIETY, HE HAS BEEN SEEN TWICE FOR THESE SYMPTOMS. HIS SON HAS FLU RECENTLY (TREMAYNE,DENISE) Allergies/Adverse Reactions: adhesive tape Allergy (Verified 06/27/19 18:30) turmeric Allergy (Verified 06/27/19 18:30) Anaphylactic Reaction Home Medications: Divalproex Sodium [Depakote] 1,000 mg PO HS 10/17/16 [History] Duloxetine HCl [Cymbalta] 120 mg PO DAILY 10/17/16 [History] Losartan Potassium [Cozaar] 100 mg PO DAILY 10/17/16 [History] clonazePAM [Klonopin] 1 mg PO TID 10/17/16 [History] Furosemide 40 mg [Lasix 40 MG] 40 mg PO DAILY 12/28/16 [History] Potassium Chloride 8 meq PO DAILY 12/28/16 [History] Metoprolol Succinate 50 mg [Toprol Xl 50 MG] 100 mg PO BID 03/28/17 [ History] l Gasseri/B Bifidum/B Longum [Covertix Capsule] 1 each PO TID [History] Albuterol Sulfate [Ventolin Hfa] 3 puffs IH Q6HPRN PRN 12/12/17 [History] Amlodipine Besylate 5 mg PO DAILY 12/12/17 [History] Aspirin 81 mg PO DAILY 12/12/17 [History] Cetirizine HCl [Zyrtec] 10 mg PO DAILY 12/12/17 [History] Montelukast Sodium 10 mg [Singulair 10 MG] 10 mg PO DAILY 12/12/17 [History] Naproxen 375 mg [Naprosyn 375 mg] 375 mg PO BID 12/12/17 [History] Sitagliptin Phosphate [Januvia] 25 mg PO DAILY 12/12/17 [History] Fluticasone Propionate [Flonase Allergy Relief] 1 spray NS BID 02/15/18 [History ] Fluticasone/Salmeterol 500/50* [Advair 500-50 Diskus] 2 each IH BID 02/15/18 [History] Canagliflozin [Invokana] 100 mg PO DAILY 04/19/18 [History] Pregabalin [Lyrica 75 mg Cap] 75 mg PO TID 04/19/18 [History] - Review of Systems Constitutional: Fever, Chills Eyes: Eye Redness Ears, Nose, & Throat: Ear Pain Respiratory: Cough, Wheezing, No Dyspnea Cardiac: No Chest Pain, No Edema, No Syncope Abdominal/Gastrointestinal: No Abdominal Pain, No Nausea, No Vomiting, No Diarrhea Genitourinary Symptoms: No Dysuria Musculoskeletal: No Back Pain, No Neck Pain Skin: No Rash Neurological: No Dizziness, No Focal Weakness, No Sensory Changes Psychological: No Symptoms Endocrine: No Symptoms All Other Systems: Reviewed and Negative <TREMAYNE,DENISE - Last Filed: 06/27/19 19:00> - Past Medical History Pertinent Past Medical History: Yes Neurological History: No Pertinent History ENT History: No Pertinent History Cardiac History: Arrhythmia, High Cholesterol, Hypertension Respiratory History: Asthma, Bronchitis Endocrine Medical History: Diabetes Type II, Other Musculoskeletal History: Fractures, Osteoarthritis GI Medical History: Gallbladder Disease, Hernia, Other History: No Pertinent History Psycho-Social History: Anxiety, Depression, Other Male Reproductive Disorders: No Pertinent History Other Medical History: liver disease, Hemachromatosis. Pt denies COPD but does have hx of asthmatic bronchitis. Tachycardia - Past Surgical History Past Surgical History: Yes Neuro Surgical History: No Pertinent History Cardiac: No Pertinent History Respiratory: No Pertinent History Gastrointestinal: Cholecystectomy, Hernia Repair Genitourinary: No Pertinent History Musculoskeletal: Other Male Surgical History: No Pertinent History Other Surgical History: central line Groshong CV catheter X 9 - Social History Smoking Status: Never smoker Exposure to second hand smoke: Yes Drug Use: none Patient Lives Alone: No <TREMAYNE,DENISE - Last Filed: 06/27/19 19:00> - Physical Exam General Appearance: mild distress, alert Eye Exam: bilateral eye: PERRL, EOMI Ear Exam: bilateral ear: TM normal Nasal Exam: normal inspection Throat Exam: moist mucus membranes, pharynx swelling, No tonsillar exudate Neck Exam: supple Cardiovascular/Respiratory Exam: regular rate/rhythm, decreased breath sounds Abdominal Exam: non-tender, soft Neurologic Exam: alert, oriented x 3, sensation nml, No motor deficits Skin Exam: normal color, warm, dry SpO2: 98 <TREMAYNE,DENISE - Last Filed: 06/27/19 19:00> - Nursing Vital Signs Nursing Vital Signs: Initial Vital Signs Temperature 99.1 F 06/27/19 18:18 Pulse Rate 102 H 06/27/19 18:18 Respiratory Rate 16 06/27/19 18:18 Blood Pressure 139/88 06/27/19 18:18 O2 Sat by Pulse Oximetry 98 06/27/19 18:18 Pain Scale Pain Intensity 3 - Course Nursing assessment & vital signs reviewed: Yes - Radiology Exams Chest X-ray Interpretation: Reviewed by md <TREMAYNE,DENISE - Last Filed: 06/27/19 19:00> - Radiology Exams Chest X-ray Interpretation: No Fracture, No Pneumonia, No Pneumothorax, Other ( increased perihilar markings more on the right. prelim read.) <WAYNE (ED PHY)ASAF - Last Filed: 06/27/19 20:48> Ordered Tests: Active Orders 24 hr Category Date Time Status CHEST 2 VIEWS (PA AND LAT) Stat Exams 06/27/19 18:39 Taken CBC W DIFF Stat Lab 06/27/19 19:12 Completed CMP Stat Lab 06/27/19 19:12 Completed Manual Differential NC Stat Lab 06/27/19 19:12 Completed Medication Summary Discontinued Medications Generic Name Dose Route Start Last Admin Trade Name Jose Antonio PRN Reason Stop Dose Admin Acetaminophen 650 mg 06/27/19 18:39 06/27/19 19:20 Tylenol 325 Mg PO 06/27/19 18:40 650 mg STAT ONE Administration Acetaminophen Confirm 06/27/19 19:13 Tylenol 325 Mg Administered 06/27/19 19:14 Dose 650 mg .ROUTE .STK-MED ONE Sodium Chloride 1,000 mls @ 999 mls/hr 06/27/19 18:39 06/27/19 19:20 Sodium Chloride 0.9% 1000 Ml IV 06/27/19 19:39 999 mls/hr .Q1H1M STA Administration Sodium Chloride Confirm 06/27/19 19:13 Sodium Chloride 0.9% 1000 Ml Administered 06/27/19 19:14 Dose 1,000 mls @ ud .ROUTE .STK-MED ONE Insulin Aspart 8 unit 06/27/19 20:09 Novolog Insulin SQ 06/27/19 20:10 STAT ONE Oseltamivir Phosphate 75 mg 06/27/19 20:10 Tamiflu 75mg Capsule PO 06/27/19 20:11 STAT ONE Lab/Rad Data: Laboratory Result Diagrams 06/27/19 19:12 06/27/19 19:12 Laboratory Results 06/27/19 06/27/19 06/27/19 Range/Units 19:12 19:12 19:12 WBC 4.8 (4.0-10.5) K/mm3 RBC 4.56 (4.1-5.6) M/mm3 Hgb 13.8 (12.5-18.0) gm/dl Hct 39.8 L (42-50) % MCV 87.3 (78-100) fl MCH 30.3 (26-32) pg MCHC 34.7 (32-36) g/dl RDW 13.0 (11.5-14.0) % Plt Count 167 (150-450) K/mm3 MPV 10.2 H (6-9.5) fl Sodium 132 L (137-145) mmol/L Potassium 3.8 (3.5-5.1) mmol/L Chloride 92 L (98-107) mmol/L Carbon Dioxide 28 (22-30) mmol/L Anion Gap 16.2 H (5-15) MEQ/L BUN 9 (9-20) mg/dL Creatinine 0.64 L (0.66-1.25) mg/dL Estimated GFR > 60.0 ML/MIN Glucose 358 H (74-106) mg/dL Calcium 9.1 (8.4-10.2) mg/dL Total Bilirubin 0.40 (0.2-1.3) mg/dL AST 57 (17-59) U/L ALT 67 H (0-50) U/L Alkaline Phosphatase 68 (38-126) U/L Serum Total Protein 6.9 (6.3-8.2) g/dL Albumin 4.0 (3.5-5.0) g/dL Influenza Type A Ag NEGATIVE (NEGATIVE) Influenza Type B Ag POSITIVE (NEGATIVE) RSV (PCR) NEGATIVE (Negative) Group A Strep Antibody NEGATIVE (NEGATIVE) <DENISE CASPER - Last Filed: 06/27/19 19:00> <WAYNE MUELLER Esther)ASAF - Last Filed: 06/27/19 20:48> - Progress Progress Note: 06/27/19 20:32 Pt is doing reasonable well. Pt notes fairly frequent cough though he didn't cough while I was in the room. Pt did have a glucose of 358 and I treated this with Humalog sand stressed the importance of checking his glucose. We discussed that he will need to take extra Metformin a 3rd dose with lunch when his glucose is greater than 200. Pt voiced understanding. Pt apparently gets help with his glucose checks from a female family member and she said she had been ill and hadn't been checking it and that they knew it was running high. Pt laying supine and relaxed when I entered the room. I explained that he would get insulin and Tasmiflu and be released to home with prescriptions for tamiflu and a cough med. (WAYNE TILLMAN)ASAF) <DENISE CASPER - Last Filed: 06/27/19 19:00> - Departure Departure Disposition: Home Critical Care Time: No <WAYNE TILLMAN),EDUARDOMAGNO Meyers - Last Filed: 06/27/19 20:48> - Departure Clinical Impression: Influenza B, Uncontrolled diabetes mellitus, Morbid obesity, Essential hypertension Condition: Stable Referrals: TIGRE HARDIN [Primary Care Provider] - Plan of Treatment: Pt to be sent home with prescriptions for Tamiflu and Tesselon perles. Pt to observe a 1800 calorie ADA diet. Pt should see a property disposal officer for dietary consult. Pt should follow up with his primary care doctor in the next 3-7 days if not improiving. If you need additional help for your cough you may take Robitussin DM or Mucinex DM. Return to the ER with emergent medical conditions. Prescriptions: Benzonatate [Tessalon Perle] 100 mg PO Q8H PRN PRN #30 capsule PRN Reason: Cough Oseltamivir 75 mg [Tamiflu 75MG Capsule] 75 mg PO BID #10 cap
[2019-06-27] MEDS ORDERED: Sodium Chloride 0.9% 1000 ML 1,000 ML ONE (19:13)
[2019-06-27] MEDS ORDERED: TYLENOL 325 MG ONE (19:13)
[2019-06-27 19:15] LABS: Hematocrit 39.8 % (42-50); Hemoglobin 13.8 gm/dl (12.5-18.0); Mean Cell Volume 87.3 fl (78-100); Mean Corpuscular Hemoglobin 30.3 pg (26-32); Mean Corpuscular Hgb Concent. 34.7 g/dl (32-36); Mean Platelet Volume 10.2 fl (6-9.5); Platelet Count 167 K/mm3 (150-450); Red Blood Count 4.56 M/mm3 (4.1-5.6); White Blood Count 4.8 K/mm3 (4.0-10.5)
[2019-06-27 19:27] LABS: ALKALINE PHOSPHATASE 68 U/L (38-126); ANION GAP 16.2 MEQ/L (5-15); BLOOD UREA NITROGEN 9 mg/dL (9-20); CHLORIDE 92 mmol/L (98-107); Calcium 9.1 mg/dL (8.4-10.2); Carbon Dioxide 28 mmol/L (22-30); Creatinine 1 0.64 mg/dL (0.66-1.25); Glucose 358 mg/dL (74-106); Potassium 3.8 mmol/L (3.5-5.1); SGOT/AST 57 U/L (17-59); SODIUM 132 mmol/L (137-145); Total Protein 6.9 g/dL (6.3-8.2)
[2019-06-27 19:34] LABS: SGPT/ALT 67 U/L (0-50)
[2019-06-27 19:59] LABS: Group A Strep NEGATIVE (NEGATIVE); INFLUENZA A NEGATIVE (NEGATIVE)
[2019-06-27 20:00] LABS: INFLUENZA B POSITIVE (NEGATIVE); RESPIRATORY SYNCTIAL VIRUS NEGATIVE (Negative)
[2019-06-27] MEDS ORDERED: NovoLOG Insulin SQ ONE (20:09)
[2019-06-27] MEDS ORDERED: Tamiflu 75MG Capsule PO ONE ×2 (20:10→20:29)
[2019-06-27] MEDS ORDERED: NovoLOG Insulin ONE (20:29)
[2019-06-27 20:54] VITALS: O2SAT 96
[2019-06-27 21:24] VITALS: BP 121/70; PULSE 100
[2019-06-27 21:31] LABS: ATYPICAL LYMPHS 1 %; BAND 7 % (0.0-2.0); Eosinophil 5 % (0.00-3.0); Lymphocytes 23 % (24-44); Monocyte 4 % (0.0-12.0); Neutrophils 60 % (36.-66.); Platelet Estimate NORMAL (NORMAL); Total Cells Counted 100
--- NOTE | 2019-06-28 09:22 | XRAY ---
Indication: Cough and congestion. Comparison: June 24, 2019. PA/lateral chest remains clear again with incidental calcified granulomas. Heart is not enlarged. Bony thorax intact. No new/acute findings.
== END 2019-06-27 21:24 | disposition home or self-care (01) ==
LOC: ED 18:17
DX: J10.1 Influenza due to other identified influenza virus with other respiratory manifestations (principal); E11.65 Type 2 diabetes mellitus with hyperglycemia; E66.01 Morbid (severe) obesity due to excess calories; I10 Essential (primary) hypertension; Z79.899 Other long term (current) drug therapy
CPT/HCPCS: 36000; 36415; 71046; 80053; 82962; 85025; 87631; 87651; 96360; 96372; 99284; A9270-GY

== ENCOUNTER 2020-07-18 20:45 | Emergency (ER) | payer OTHER ==
[2020-07-18 21:41] LABS: Absolute Neutrophil Ct (ANC) 3.56 (1.4-6.9); Hematocrit 38.9 % (42-50); Hemoglobin 12.5 gm/dl (12.5-18.0); Mean Cell Volume 75.2 fl (78-100); Mean Corpuscular Hemoglobin 24.2 pg (26-32); Mean Corpuscular Hgb Concent. 32.1 g/dl (32-36); Mean Platelet Volume 10.4 fl (7.5-11.0); Platelet Count 264 K/mm3 (150-450); Red Blood Count 5.17 M/mm3 (4.1-5.6); Red Cell Distribution Width 15.8 % (11.5-14.0); White Blood Count 7.3 K/mm3 (4.0-10.5)
[2020-07-18 22:04] LABS: MAGNESIUM 1.6 mg/dL (1.6-2.3); NT PRO BNP < 11.1 pg/mL (0-450)
--- NOTE | 2020-07-18 22:39 | ERPHSYRPT ---
- History of Present Illness Time Seen by Provider: 07/18/20 21:00 Historian: patient Exam Limitations: no limitations Patient Subjective Stated Complaint: SOB, neck pain, back pain that started at 1600. Had chest pain earlier, denies chest pain at this time. Triage Nursing Assessment: Pt presents A & Ox3 by EMS from home. Reports chest pain, neck pain, back pain, nausea and lightheadedness since 1600. Chest pain resolved now. SKin flushed, warm, and dry. Sinus tachycardia noted on monitor. Slightly hypertensive. Reports lightheadedness. RR and sat's appropriate on RA. Physician History: Patient is a 35-year-old male presents to our ED via EMS for evaluation of chest pain. In route patient received 324 mg of aspirin. 2 nitro sublingual. Patient also received Zofran. Patient complains of shortness of breath neck and back pain. Patient states he had experienced chest pain in earlier part of the day however denies chest pain at this time. Symptoms are mild to moderate in intensity. No specific or worsening factors. No trauma no fever. Patient denies Covid exposure. Patient voices no other complaints concerns at this time. Activities at Onset: none Quality: aching Location: substernal Chest Pain Radiation: no radiation Severity of Pain-Max: moderate Severity of Pain-Current: mild Modifying Factors: Improves With: nothing Associated Symptoms: denies symptoms Prior Chest Pain/Cardiac Workup: no prior cardiac workup Nitro Today/Relief: 0.4 mg x 2 Aspirin Treatment Today: 325 mg x 1 Allergies/Adverse Reactions: adhesive tape Allergy (Verified 07/18/20 21:04) turmeric Allergy (Verified 07/18/20 21:04) Anaphylactic Reaction Home Medications: Divalproex Sodium [Depakote] 1,000 mg PO HS 10/17/16 [History] Duloxetine HCl [Cymbalta] 120 mg PO DAILY 10/17/16 [History] Losartan Potassium [Cozaar] 100 mg PO DAILY 10/17/16 [History] clonazePAM [Klonopin] 1 mg PO TID 10/17/16 [History] Furosemide 40 mg [Lasix 40 MG] 40 mg PO DAILY 12/28/16 [History] Potassium Chloride 8 meq PO DAILY 12/28/16 [History] Metoprolol Succinate 50 mg [Toprol Xl 50 MG] 100 mg PO BID 03/28/17 [History] l Gass[place]/B Bifidum/B Longum [9SLIDES Capsule] 1 each PO TID 03/28/17 [History] Albuterol Sulfate [Ventolin Hfa] 3 puffs IH Q6HPRN PRN 12/12/17 [History] Amlodipine Besylate 5 mg PO DAILY 12/12/17 [History] Aspirin 81 mg PO DAILY 12/12/17 [History] Cetirizine HCl [Zyrtec] 10 mg PO DAILY 12/12/17 [History] Montelukast Sodium 10 mg [Singulair 10 MG] 10 mg PO DAILY 12/12/17 [History] Naproxen 375 mg [Naprosyn 375 mg] 375 mg PO BID 12/12/17 [History] Sitagliptin Phosphate [Januvia] 25 mg PO DAILY 12/12/17 [History] Fluticasone Propionate [Flonase Allergy Relief] 1 spray NS BID 02/15/18 [History] Fluticasone/Salmeterol 500/50* [Advair 500-50 Diskus] 2 each IH BID 02/15/18 [History] Canagliflozin [Invokana] 100 mg PO DAILY 04/19/18 [History] Pregabalin [Lyrica 75 mg Cap] 75 mg PO TID 04/19/18 [History] Hx Tetanus, Diphtheria Vaccination/Date Given: Yes Hx Influenza Vaccination/Date Given: No Hx Pneumococcal Vaccination/Date Given: No Travel Risk - International Travel Have you traveled outside of the country in past 3 weeks: No - Coronavirus Screening Are you exhibiting any of the following symptoms?: No Close contact with a COVID-19 positive Pt in past 14-21 Days: No - Review of Systems Constitutional: No Symptoms, No Fever, No Chills Eyes: No Symptoms Ears, Nose, & Throat: No Symptoms Respiratory: No Symptoms, No Cough, No Dyspnea Cardiac: No Symptoms, No Chest Pain, No Edema, No Syncope Abdominal/Gastrointestinal: No Symptoms, No Abdominal Pain, No Nausea, No Vomiting, No Diarrhea Genitourinary Symptoms: No Symptoms, No Dysuria Musculoskeletal: No Symptoms, No Back Pain, No Neck Pain Skin: No Symptoms, No Rash Neurological: No Symptoms, No Dizziness, No Focal Weakness, No Sensory Changes Psychological: No Symptoms Endocrine: No Symptoms Hematologic/Lymphatic: No Symptoms Immunological/Allergic: No Symptoms All Other Systems: Reviewed and Negative - Past Medical History Pertinent Past Medical History: Yes Neurological History: No Pertinent History ENT History: No Pertinent History Cardiac History: Arrhythmia, High Cholesterol, Hypertension Respiratory History: Asthma, Bronchitis Endocrine Medical History: Diabetes Type II, Other Musculoskeletal History: Fractures, Osteoarthritis GI Medical History: Gallbladder Disease, Hernia, Other History: No Pertinent History Psycho-Social History: Anxiety, Depression, Other Male Reproductive Disorders: No Pertinent History Other Medical History: liver disease, Hemachromatosis. Pt denies COPD but does have hx of asthmatic bronchitis. Tachycardia - Past Surgical History Past Surgical History: Yes Neuro Surgical History: No Pertinent History Cardiac: No Pertinent History Respiratory: No Pertinent History Gastrointestinal: Cholecystectomy, Hernia Repair Genitourinary: No Pertinent History Musculoskeletal: Other Male Surgical History: No Pertinent History Other Surgical History: central line Gro[place] CV catheter X 9 - Social History Smoking Status: Never smoker Exposure to second hand smoke: Yes Drug Use: none Patient Lives Alone: No - Nursing Vital Signs Nursing Vital Signs: Initial Vital Signs Temperature 98.5 F 07/18/20 20:56 Pulse Rate 108 H 07/18/20 20:56 Respiratory Rate 20 07/18/20 20:56 O2 Sat by Pulse Oximetry 97 07/18/20 20:56 Pain Scale Pain Intensity 0 - Physical Exam General Appearance: no apparent distress, alert, obese Eye Exam: PERRL/EOMI, eyes nml inspection Ears, Nose, Throat Exam: normal ENT inspection, moist mucous membranes Neck Exam: normal inspection, non-tender, supple, full range of motion Respiratory Exam: normal breath sounds, lungs clear, No respiratory distress Cardiovascular Exam: regular rate/rhythm, normal heart sounds Gastrointestinal/Abdomen Exam: soft, No tenderness, No mass Back Exam: normal inspection, No CVA tenderness, No vertebral tenderness Extremity Exam: normal inspection, normal range of motion Neurologic Exam: alert, oriented x 3, cooperative, normal mood/affect, sensation nml, No motor deficits Skin Exam: normal color, warm, dry SpO2 Interpretation: normal SpO2: 95 O2 Delivery: Room Air - Course Nursing assessment & vital signs reviewed: Yes EKG Interpreted by Me: RATE (106), Sinus Rhythm, NORMAL AXIS, NORMAL INTERVALS - Radiology Exams Chest X-ray Interpretation: Interpreted by me (Negative chest x ray) Ordered Tests: Active Orders 24 hr Category Date Time Status Parts Salesman STAT Care 07/18/20 21:01 Active EKG-ER Only STAT Care 07/18/20 21:00 Active IV Insertion STAT Care 07/18/20 21:00 Active Pulse Oximetry (ED) STAT Care 07/18/20 21:00 Active CHEST 1 VIEW (PORTABLE) Stat Exams 07/18/20 21:01 Taken CBC W DIFF Stat Lab 07/18/20 21:25 Completed CMP Stat Lab 07/18/20 00:15 Completed D-DIMER QUANTITATIVE Stat Lab 07/18/20 21:25 Completed MAGNESIUM Stat Lab 07/18/20 21:25 Completed Manual Differential NC Stat Lab 07/18/20 21:25 Completed NT PRO BNP Stat Lab 07/18/20 21:25 Completed TROPONIN Q3H Lab 07/18/20 21:25 Completed TROPONIN Q3H Lab 07/19/20 00:15 Completed TROPONIN Q3H Lab 07/19/20 03:15 Ordered TROPONIN Q3H Lab 07/19/20 06:15 Ordered TROPONIN Q3H Lab 07/19/20 09:15 Ordered UA W/RFX UR CULTURE Stat Lab 07/18/20 23:12 Completed Urine Triage Profile Stat Lab 07/18/20 23:12 Completed Medication Summary Discontinued Medications Generic Name Dose Route Start Last Admin Trade Name Freq PRN Reason Stop Dose Admin Sodium Chloride 1,000 mls @ 999 mls/hr 07/18/20 23:17 07/19/20 00:13 Sodium Chloride 0.9% 1000 Ml IV 07/19/20 00:17 Infused .Q1H1M STA Infusion Sodium Chloride Confirm 07/18/20 23:18 Sodium Chloride 0.9% 1000 Ml Administered 07/18/20 23:19 Dose 1,000 mls @ ud .ROUTE .STK-MED ONE Lab/Rad Data: Laboratory Result Diagrams 07/18/20 21:25 07/18/20 00:15 Laboratory Results 07/19/20 07/18/20 07/18/20 Range/Units 00:15 23:12 23:12 WBC (4.0-10.5) K/mm3 RBC (4.1-5.6) M/mm3 Hgb (12.5-18.0) gm/dl Hct (42-50) % MCV (78-100) fl MCH (26-32) pg MCHC (32-36) g/dl RDW (11.5-14.0) % Plt Count (150-450) K/mm3 MPV (7.5-11.0) fl Absolute Granulocytes (1.4-6.9) Segmented Neutrophils (36.-66.) % Lymphocytes (Manual) (24-44) % Monocytes (Manual) (0.0-12.0) % Eosinophils (Manual) (0.00-3.0) % Platelet Estimate (NORMAL) RBC Morphology Anisocytosis D-Dimer (215-500) ng/mL Sodium (137-145) mmol/L Potassium (3.5-5.1) mmol/L Chloride (98-107) mmol/L Carbon Dioxide (22-30) mmol/L Anion Gap (5-15) MEQ/L BUN (9-20) mg/dL Creatinine (0.66-1.25) mg/dL Estimated GFR ML/MIN Glucose (74-106) mg/dL Calcium (8.4-10.2) mg/dL Magnesium (1.6-2.3) mg/dL Total Bilirubin (0.2-1.3) mg/dL AST (17-59) U/L ALT (0-50) U/L Alkaline Phosphatase (38-126) U/L Troponin I < 0.012 (0.000-0.034) ng/mL NT-Pro-B Natriuret Pep (0-450) pg/mL Serum Total Protein (6.3-8.2) g/dL Albumin (3.5-5.0) g/dL Urine Color YELLOW (YELLOW) Urine Appearance CLEAR (CLEAR) Urine pH 6.0 (5-6) Ur Specific [place] 1.023 (1.005-1.025) Urine Protein NEGATIVE (Negative) Urine Ketones SMALL (NEGATIVE) Urine Blood NEGATIVE (0-5) Godfrey/ul Urine Nitrite NEGATIVE (NEGATIVE) Urine Bilirubin NEGATIVE (NEGATIVE) Urine Urobilinogen NEGATIVE (0-1) mg/dL Ur Leukocyte Esterase NEGATIVE (NEGATIVE) Urine WBC (Auto) NONE (0-5) /HPF Urine RBC (Auto) NONE (0-2) /HPF U Epithel Cells (Auto) NONE (FEW) /HPF Urine Bacteria (Auto) NONE (NEGATIVE) /HPF Urine Culture Reflexed NO (NO) Urine Glucose >=500 (NEGATIVE) mg/dL Urine Opiates Level NEGATIVE (NEGATIVE) Ur Methadone NEGATIVE (NEGATIVE) Urine Barbiturates NEGATIVE (NEGATIVE) Ur Phencyclidine (PCP) NEGATIVE (NEGATIVE) Urine Amphetamine NEGATIVE (NEGATIVE) U Benzodiazepine Level NEGATIVE (NEGATIVE) Urine Cocaine NEGATIVE (NEGATIVE) Urine Marijuana (THC) NEGATIVE (NEGATIVE) 07/18/20 07/18/20 07/18/20 Range/Units 21:25 21:25 21:25 WBC (4.0-10.5) K/mm3 RBC (4.1-5.6) M/mm3 Hgb (12.5-18.0) gm/dl Hct (42-50) % MCV (78-100) fl MCH (26-32) pg MCHC (32-36) g/dl RDW (11.5-14.0) % Plt Count (150-450) K/mm3 MPV (7.5-11.0) fl Absolute Granulocytes (1.4-6.9) Segmented Neutrophils (36.-66.) % Lymphocytes (Manual) (24-44) % Monocytes (Manual) (0.0-12.0) % Eosinophils (Manual) (0.00-3.0) % Platelet Estimate (NORMAL) RBC Morphology Anisocytosis D-Dimer < 215 L (215-500) ng/mL Sodium (137-145) mmol/L Potassium (3.5-5.1) mmol/L Chloride (98-107) mmol/L Carbon Dioxide (22-30) mmol/L Anion Gap (5-15) MEQ/L BUN (9-20) mg/dL Creatinine (0.66-1.25) mg/dL Estimated GFR ML/MIN Glucose (74-106) mg/dL Calcium (8.4-10.2) mg/dL Magnesium 1.6 (1.6-2.3) mg/dL Total Bilirubin (0.2-1.3) mg/dL AST (17-59) U/L ALT (0-50) U/L Alkaline Phosphatase (38-126) U/L Troponin I < 0.012 (0.000-0.034) ng/mL NT-Pro-B Natriuret Pep < 11.1 (0-450) pg/mL Serum Total Protein (6.3-8.2) g/dL Albumin (3.5-5.0) g/dL Urine Color (YELLOW) Urine Appearance (CLEAR) Urine pH (5-6) Ur Specific [place] (1.005-1.025) Urine Protein (Negative) Urine Ketones (NEGATIVE) Urine Blood (0-5) Godfrey/ul Urine Nitrite (NEGATIVE) Urine Bilirubin (NEGATIVE) Urine Urobilinogen (0-1) mg/dL Ur Leukocyte Esterase (NEGATIVE) Urine WBC (Auto) (0-5) /HPF Urine RBC (Auto) (0-2) /HPF U Epithel Cells (Auto) (FEW) /HPF Urine Bacteria (Auto) (NEGATIVE) /HPF Urine Culture Reflexed (NO) Urine Glucose (NEGATIVE) mg/dL Urine Opiates Level (NEGATIVE) Ur Methadone (NEGATIVE) Urine Barbiturates (NEGATIVE) Ur Phencyclidine (PCP) (NEGATIVE) Urine Amphetamine (NEGATIVE) U Benzodiazepine Level (NEGATIVE) Urine Cocaine (NEGATIVE) Urine Marijuana (THC) (NEGATIVE) 07/18/20 07/18/20 Range/Units 21:25 00:15 WBC 7.3 (4.0-10.5) K/mm3 RBC 5.17 (4.1-5.6) M/mm3 Hgb 12.5 (12.5-18.0) gm/dl Hct 38.9 L (42-50) % MCV 75.2 L (78-100) fl MCH 24.2 L (26-32) pg MCHC 32.1 (32-36) g/dl RDW 15.8 H (11.5-14.0) % Plt Count 264 (150-450) K/mm3 MPV 10.4 (7.5-11.0) fl Absolute Granulocytes 3.56 (1.4-6.9) Segmented Neutrophils 59 (36.-66.) % Lymphocytes (Manual) 30 (24-44) % Monocytes (Manual) 8 (0.0-12.0) % Eosinophils (Manual) 3 (0.00-3.0) % Platelet Estimate NORMAL (NORMAL) RBC Morphology ABNORMAL Anisocytosis 1+ D-Dimer (215-500) ng/mL Sodium 134 L (137-145) mmol/L Potassium 4.0 (3.5-5.1) mmol/L Chloride 97 L (98-107) mmol/L Carbon Dioxide 27 (22-30) mmol/L Anion Gap 14.9 (5-15) MEQ/L BUN 13 (9-20) mg/dL Creatinine 0.78 (0.66-1.25) mg/dL Estimated GFR > 60.0 ML/MIN Glucose 261 H (74-106) mg/dL Calcium 9.3 (8.4-10.2) mg/dL Magnesium (1.6-2.3) mg/dL Total Bilirubin 0.30 (0.2-1.3) mg/dL AST 38 (17-59) U/L ALT 45 (0-50) U/L Alkaline Phosphatase 70 (38-126) U/L Troponin I (0.000-0.034) ng/mL NT-Pro-B Natriuret Pep (0-450) pg/mL Serum Total Protein 6.9 (6.3-8.2) g/dL Albumin 4.2 (3.5-5.0) g/dL Urine Color (YELLOW) Urine Appearance (CLEAR) Urine pH (5-6) Ur Specific [place] (1.005-1.025) Urine Protein (Negative) Urine Ketones (NEGATIVE) Urine Blood (0-5) Godfrey/ul Urine Nitrite (NEGATIVE) Urine Bilirubin (NEGATIVE) Urine Urobilinogen (0-1) mg/dL Ur Leukocyte Esterase (NEGATIVE) Urine WBC (Auto) (0-5) /HPF Urine RBC (Auto) (0-2) /HPF U Epithel Cells (Auto) (FEW) /HPF Urine Bacteria (Auto) (NEGATIVE) /HPF Urine Culture Reflexed (NO) Urine Glucose (NEGATIVE) mg/dL Urine Opiates Level (NEGATIVE) Ur Methadone (NEGATIVE) Urine Barbiturates (NEGATIVE) Ur Phencyclidine (PCP) (NEGATIVE) Urine Amphetamine (NEGATIVE) U Benzodiazepine Level (NEGATIVE) Urine Cocaine (NEGATIVE) Urine Marijuana (THC) (NEGATIVE) - Progress Progress: improved Air Movement: good Progress Note: 07/19/20 01:12 In calculating patient's heart score, major adverse coronary event is 12 to 16%. Has hypertension, hypercholesterolemia, diabetes, obesity, positive history. Patient's father of a heart attack at age 54. Patient presented to our ED via EMS. He received nitro glycerin. The nitro improved patient's symptoms. Patient is mildly diaphoretic at rest. Patient score is a 4. We advised admission. Patient refused. 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 Patient is of sound mind and appropriate to make informed and independent medical decisions. Patient understands that leaving AGAINST MEDICAL ADVICE may result in delayed diagnosis, worsening of symptoms, increased risk morbidity, mortality, short and long-term disability including . In spite of his risks patient has decided to leave AGAINST MEDICAL ADVICE. Patient understand that he may return to our ED at any point if he changes his mind. Patient agrees to follow-up with his primary care doctor within 48 hours for reevaluation. Patient will need a stress test. Patient was informed of this fact. AMA form was signed. 07/19/20 01:16 07/19/20 01:18 Blood Culture(s) Obtained: No Antibiotics given: No Counseled pt/family regarding: lab results, diagnosis, need for follow-up, rad results - Departure Departure Disposition: AMA Clinical Impression: Back pain, Chest pain, Hyperglycemia, ACS (acute coronary syndrome) Condition: Stable Critical Care Time: No Referrals: TIGRE HARDIN [Primary Care Provider] - Additional Instructions: Discharge/Care Plan RODNEY GOMEZ was seen on 07/19/20 in the Emergency Room. The patient was counseled regarding Diagnosis,Lab results, Imaging studies, need for follow up and when to return to the Emergency Room. Prescriptions given: Discharge Note I have spoken with the patient and/or caregivers. I have explained the patient's condition, diagnosis and treatment plan based on the information available to me at this time. I have answered the patient's and/or caregiver's questions and addressed any concerns. The patient and/or caregivers have as good understanding of the patient's diagnosis, condition and treatment plan as can be expected at this point. The vital signs have been stable. The patient's condition is stable and appropriate for discharge from the emergency department. The patient will pursue further outpatient evaluation with the primary care physician or other designated or consulting physician as outlined in the dis charge instructions. The patient and/or caregivers are agreeable to this plan of care and follow-up instructions have been explained in detail. The patient and/or caregivers have received these instruction. The patient/and or caregivers are aware that any significant change in condition or worsening of symptoms should prompt an immediate return to this or the closest emergency department or call 911.
[2020-07-18] MEDS ORDERED: Sodium Chloride 0.9% 1000 ML 1,000 ML IV STA (23:17)
[2020-07-18] MEDS ORDERED: Sodium Chloride 0.9% 1000 ML 1,000 ML ONE (23:18)
[2020-07-18 23:27] LABS: Appearance CLEAR (CLEAR); Bilirubin NEGATIVE (NEGATIVE); Blood NEGATIVE Ery/ul (0-5); Glucose >=500 mg/dL (NEGATIVE); Ketones SMALL (NEGATIVE); Leukocyte Esterase NEGATIVE (NEGATIVE); Nitrite NEGATIVE (NEGATIVE); Protein,Urine Dip NEGATIVE (Negative); Specific Gravity 1.023 (1.005-1.025); Urobilinogen NEGATIVE mg/dL (0-1)
[2020-07-18 23:37] LABS: ANISOCYTOSIS 1+; Eosinophil 3 % (0.00-3.0); Lymphocytes 30 % (24-44); Monocyte 8 % (0.0-12.0); Neutrophils 59 % (36.-66.); Platelet Estimate NORMAL (NORMAL); Total Cells Counted 100
[2020-07-18 23:38] LABS: Amphetamine,Urine NEGATIVE (NEGATIVE); Barbiturate,Urine NEGATIVE (NEGATIVE); Benzodiazepine,Urine NEGATIVE (NEGATIVE); Cocaine,Urine NEGATIVE (NEGATIVE); Methadone,Urine NEGATIVE (NEGATIVE); Opiate,Urine NEGATIVE (NEGATIVE); PCP,Urine NEGATIVE (NEGATIVE); THC,Urine NEGATIVE (NEGATIVE)
[2020-07-19 00:36] LABS: ALBUMIN 4.2 g/dL (3.5-5.0); ALKALINE PHOSPHATASE 70 U/L (38-126); ANION GAP 14.9 MEQ/L (5-15); BLOOD UREA NITROGEN 13 mg/dL (9-20); CHLORIDE 97 mmol/L (98-107); Calcium 9.3 mg/dL (8.4-10.2); Carbon Dioxide 27 mmol/L (22-30); Creatinine 1 0.78 mg/dL (0.66-1.25); EST GLOMERULAR FILTRATION RATE > 60.0 ML/MIN; Glucose 261 mg/dL (74-106); SGOT/AST 38 U/L (17-59); SGPT/ALT 45 U/L (0-50); SODIUM 134 mmol/L (137-145); Total Protein 6.9 g/dL (6.3-8.2)
[2020-07-19 01:02] VITALS: O2SAT 95
[2020-07-19 01:26] VITALS: BP 139/93; PULSE 103
--- NOTE | 2020-07-19 08:38 | XRAY ---
Indication: Chest pain. Comparison: September 02, 2019. Portable apical lordotic chest less inflated and clear with stable right lung calcified granuloma. Heart is not enlarged. Bony thorax intact. Impression: Again nonacute chest with old granulomatous disease.
== END 2020-07-19 01:27 | disposition home or self-care (01) ==
LOC: ED 20:45
DX: R06.02 Shortness of breath (principal); I24.9 Acute ischemic heart disease, unspecified; R07.9 Chest pain, unspecified; M54.2 Cervicalgia; M54.5 Low back pain; R11.0 Nausea; R00.0 Tachycardia, unspecified; I10 Essential (primary) hypertension; E78.5 Hyperlipidemia, unspecified; E11.9 Type 2 diabetes mellitus without complications; Z79.899 Other long term (current) drug therapy; E66.9 Obesity, unspecified
CPT/HCPCS: 36000; 36415; 71045; 80053; 80307; 81001; 83735; 83880; 84484; 85025; 85379; 93005; 93041; 94760; 96374; 99284

== ENCOUNTER 2020-11-07 14:05 | Emergency (ER) | payer OTHER ==
--- NOTE | 2020-11-07 14:39 | ERPHSYRPT ---
- History of Present Illness Time Seen by Provider: 11/07/20 14:25 Source: patient Exam Limitations: no limitations Patient Subjective Stated Complaint: Pt states that he took 30-40 Lyrica 75mg between yesterday and today with the last dose being at 1000, pt states that he was having suicidal ideations and was taking the medicine to try and stop the thoughts, prior to taking the medicine pt states that he had a tool that he was sharpening and was going to stab himself in his carotid. Triage Nursing Assessment: Pt brought by EMS and law enforcement due to pt overdosing on 30-40 Lyrica 75 mg in a 24 hour period, tachycardic, hypertensive, pt denies trying to harm himself and states that he was just trying to get rid of the suicidal thoughts after realizing he had a tool in his pocket that he was sharpening to stab himself in his carotid, pt appears calm and is A&O x4 Physician History: Patient is a 35-year-old male presents to emergency department for evaluation of suicidal attempt. Patient states that he has been feeling depressed. Patient's father in 2015. Patient was also . On Saturday patient saw his sister wearing his father's shirt. Patient became very upset. Yesterday patient took a large number of Lyrica. The exact amount is unknown. Today patient took a handful of Lyrica at approximately 10 AM. Patient states he took approximately 30 to 4075 mg tabs of H[place] in total between yesterday and today. Patient states that he has been experiencing suicidal ideations. Patient states he sharpened a metal punch to stab himself in the neck. Patient then changed his mind. Patient took the Lyrica in an attempt to distract him from hurting himself. Patient is currently asymptomatic. He denies pain. Patient is alert and oriented x4. Patient voices no other complaints or concerns at this time. Timing/Duration: yesterday Severity of Symptoms-Max: none Severity of Symptoms-Current: none Context related to: other Suicidal thoughts: attempt Associated Symptoms: angry, depressed Previous symptoms: same symptoms as today Allergies/Adverse Reactions: adhesive tape Allergy (Verified 11/07/20 14:21) turmeric Allergy (Verified 11/07/20 14:21) Anaphylactic Reaction Home Medications: Divalproex Sodium [Depakote] 1,500 mg PO HS 10/17/16 [History] Duloxetine HCl [Cymbalta] 120 mg PO DAILY 10/17/16 [History] Losartan Potassium [Cozaar] 100 mg PO DAILY 10/17/16 [History] clonazePAM [Klonopin] 1 mg PO TID 10/17/16 [History] Furosemide 40 mg [Lasix 40 MG] 40 mg PO DAILY 12/28/16 [History] Potassium Chloride 8 meq PO DAILY 12/28/16 [History] Aspirin 81 mg PO DAILY 12/12/17 [History] Montelukast Sodium 10 mg [Singulair 10 MG] 10 mg PO DAILY 12/12/17 [History] Naproxen 375 mg [Naprosyn 375 mg] 375 mg PO BID 12/12/17 [History] Sitagliptin Phosphate [Januvia] 25 mg PO DAILY 12/12/17 [History] Fluticasone Propionate [Flonase Allergy Relief] 1 spray NS BID 02/15/18 [History] Fluticasone/Salmeterol 500/50* [Advair 500-50 Diskus] 2 each IH BID 02/15/18 [History] Pregabalin [Lyrica 75 mg Cap] 75 mg PO TID 04/19/18 [History] Albuterol Sulfate [Albuterol Sulfate Hfa] 3 inh PO Q6H PRN 11/07/20 [History] Diltiazem HCl [Cardizem] 30 mg PO TID 11/07/20 [History] Dulaglutide [Trulicity] 1.5 mg SQ WEEKLY 11/07/20 [History] Loratadine 10 mg [Claritin 10 mg] 10 mg PO DAILY 11/07/20 [History] Quetiapine Fumarate [Seroquel] 50 mg PO DAILY 11/07/20 [History] Simvastatin 10 mg [Zocor 10MG] 10 mg PO DAILY 11/07/20 [History] buPROPion HCl [Bupropion HCl Sr] 100 mg PO DAILY 11/07/20 [History] carvediloL [Carvedilol] 25 mg PO BID 11/07/20 [History] Hx Tetanus, Diphtheria Vaccination/Date Given: Yes Hx Influenza Vaccination/Date Given: No Hx Pneumococcal Vaccination/Date Given: No Travel Risk - International Travel Have you traveled outside of the country in past 3 weeks: No - Coronavirus Screening Are you exhibiting any of the following symptoms?: No Close contact with a COVID-19 positive Pt in past 14-21 Days: No - Vaccine Status Have you recieved a Covid-19 vaccination: Yes Clipping Marker: Moderna - Vaccination Dates Date of 2cond Vaccination (if applicable): November 15, 2020 - Past Medical History Pertinent Past Medical History: Yes Neurological History: No Pertinent History ENT History: No Pertinent History Cardiac History: Arrhythmia, High Cholesterol, Hypertension Respiratory History: Asthma, Bronchitis Endocrine Medical History: Diabetes Type II, Other Musculoskeletal History: Fractures, Osteoarthritis GI Medical History: Gallbladder Disease, Hernia, Other History: No Pertinent History Psycho-Social History: Anxiety, Depression, Other Male Reproductive Disorders: No Pertinent History Other Medical History: liver disease, Hemachromatosis. Pt denies COPD but does have hx of asthmatic bronchitis. Tachycardia - Past Surgical History Past Surgical History: Yes Neuro Surgical History: No Pertinent History Cardiac: No Pertinent History Respiratory: No Pertinent History Gastrointestinal: Cholecystectomy, Hernia Repair Genitourinary: No Pertinent History Musculoskeletal: Other Male Surgical History: No Pertinent History Other Surgical History: central line Groshong CV catheter X 9 - Social History Smoking Status: Never smoker Exposure to second hand smoke: Yes Drug Use: none Patient Lives Alone: No - Review of Systems Constitutional: No Symptoms, No Fever, No Chills Eyes: No Symptoms Ears, Nose, & Throat: No Symptoms Respiratory: No Symptoms, No Cough, No Dyspnea Cardiac: No Symptoms, No Chest Pain, No Edema, No Syncope Abdominal/Gastrointestinal: No Symptoms, No Abdominal Pain, No Nausea, No Vomiting, No Diarrhea Genitourinary Symptoms: No Symptoms, No Dysuria Musculoskeletal: No Symptoms, No Back Pain, No Neck Pain Skin: No Symptoms, No Rash Neurological: No Symptoms, No Dizziness, No Focal Weakness, No Sensory Changes Psychological: No Symptoms Endocrine: No Symptoms Hematologic/Lymphatic: No Symptoms Immunological/Allergic: No Symptoms All Other Systems: Reviewed and Negative - Nursing Vital Signs Nursing Vital Signs: Initial Vital Signs Temperature 98.5 F 11/07/20 14:06 Pulse Rate 104 H 11/07/20 14:06 Blood Pressure 142/90 11/07/20 14:06 O2 Sat by Pulse Oximetry 98 11/07/20 14:06 Pain Scale Pain Intensity 0 - Physical Exam General Appearance: no apparent distress, obese Eyes, Ears, Nose, Throat Exam: normal ENT inspection, moist mucous membranes Neck Exam: normal inspection, non-tender, supple Respiratory Exam: normal breath sounds, lungs clear, No respiratory distress Cardiovascular Exam: regular rate/rhythm, normal heart sounds, normal peripheral pulses, No edema Gastrointestinal/Abdominal Exam: soft, No tenderness, No distention Extremities Exam: normal inspection, normal range of motion, No evidence of injury, No edema Current Suicidality: denies suicide plan Neurological Exam: 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, 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 tested, oriented x 3 Appearance: appropriate appearance Behavior/Eye Contact/Speech: alert & cooperative, cooperative, good eye contact, normal speech Thoughts/Hallucinations: normal thought pattern, No no apparent hallucination, N o auditory hallucinations Skin Exam: normal color, warm, dry, No rash SpO2 Interpretation: normal SpO2: 98 O2 Delivery: Room Air - Course Nursing assessment & vital signs reviewed: Yes EKG Interpreted by Me: RATE (98), Sinus Rhythm, NORMAL AXIS, NORMAL INTERVALS Ordered Tests: Active Orders 24 hr Category Date Time Status Skip Loader STAT Care 11/07/20 14:16 Completed EKG-ER Only STAT Care 11/07/20 14:37 Completed ACETAMINOPHEN Stat Lab 11/07/20 14:45 Completed CBC W DIFF Stat Lab 11/07/20 14:45 Completed CMP Stat Lab 11/07/20 14:45 Completed ETHYL ALCOHOL Stat Lab 11/07/20 14:45 Completed Manual Differential NC Stat Lab 11/07/20 14:45 Completed SALICYLATE Stat Lab 11/07/20 14:45 Completed SGOT/AST Stat Lab 11/07/20 16:41 Completed SGPT/ALT Stat Lab 11/07/20 16:41 Completed UA W/RFX UR CULTURE Stat Lab 11/07/20 15:59 Completed Urine Triage Profile Stat Lab 11/07/20 15:59 Completed Medication Summary Discontinued Medications Generic Name Dose Route Start Last Admin Trade Name Freq PRN Reason Stop Dose Admin Carvedilol 25 mg 11/07/20 22:00 11/07/20 19:53 Coreg 12.5 Mg PO 12/07/20 21:59 25 mg BID MONET Administration Carvedilol Confirm 11/07/20 19:45 Coreg 12.5 Mg Administered 11/07/20 19:46 Dose 25 mg .ROUTE .STK-MED ONE Lab/Rad Data: Laboratory Result Diagrams 11/07/20 14:45 11/07/20 14:45 Laboratory Results 11/07/20 11/07/20 11/07/20 Range/Units 21:40 16:41 15:59 WBC (4.0-10.5) K/mm3 RBC (4.1-5.6) M/mm3 Hgb (12.5-18.0) gm/dl Hct (42-50) % MCV (78-100) fl MCH (26-32) pg MCHC (32-36) g/dl RDW (11.5-14.0) % Plt Count (150-450) K/mm3 MPV (7.5-11.0) fl Segmented Neutrophils (36.-66.) % Lymphocytes (Manual) (24-44) % Monocytes (Manual) (0.0-12.0) % Eosinophils (Manual) (0.00-3.0) % Hypochromia Platelet Estimate (NORMAL) RBC Morphology Anisocytosis Sodium (137-145) mmol/L Potassium (3.5-5.1) mmol/L Chloride (98-107) mmol/L Carbon Dioxide (22-30) mmol/L Anion Gap (5-15) MEQ/L BUN (9-20) mg/dL Creatinine (0.66-1.25) mg/dL Estimated GFR ML/MIN Glucose (74-106) mg/dL Calcium (8.4-10.2) mg/dL Total Bilirubin (0.2-1.3) mg/dL AST 60 H (17-59) U/L ALT 55 H (0-50) U/L Alkaline Phosphatase (38-126) U/L Serum Total Protein (6.3-8.2) g/dL Albumin (3.5-5.0) g/dL Urine Color (YELLOW) Urine Appearance (CLEAR) Urine pH (5-6) Ur Specific [place] (1.005-1.025) Urine Protein (Negative) Urine Ketones (NEGATIVE) Urine Blood (0-5) Godfrey/ul Urine Nitrite (NEGATIVE) Urine Bilirubin (NEGATIVE) Urine Urobilinogen (0-1) mg/dL Ur Leukocyte Esterase (NEGATIVE) Urine WBC (Auto) (0-5) /HPF Urine RBC (Auto) (0-2) /HPF U Epithel Cells (Auto) (FEW) /HPF Urine Bacteria (Auto) (NEGATIVE) /HPF Urine Culture Reflexed (NO) Urine Glucose (NEGATIVE) mg/dL Salicylates (2-20) mg/dL Urine Opiates Level NEGATIVE (NEGATIVE) Ur Methadone NEGATIVE (NEGATIVE) Acetaminophen (10-30) ug/ml Urine Barbiturates NEGATIVE (NEGATIVE) Ur Phencyclidine (PCP) NEGATIVE (NEGATIVE) Urine Amphetamine NEGATIVE (NEGATIVE) U Benzodiazepine Level NEGATIVE (NEGATIVE) Urine Cocaine NEGATIVE (NEGATIVE) Urine Marijuana (THC) NEGATIVE (NEGATIVE) Ethyl Alcohol (0-10) mg/dL SARS-CoV-2 Ag (Rapid) NEGATIVE (NEGATIVE) 11/07/20 11/07/20 11/07/20 Range/Units 15:59 14:45 14:45 WBC 5.7 (4.0-10.5) K/mm3 RBC 5.63 H (4.1-5.6) M/mm3 Hgb 12.6 (12.5-18.0) gm/dl Hct 41.7 L (42-50) % MCV 74.1 L (78-100) fl MCH 22.4 L (26-32) pg MCHC 30.2 L (32-36) g/dl RDW 17.9 H (11.5-14.0) % Plt Count 227 (150-450) K/mm3 MPV 10.7 (7.5-11.0) fl Segmented Neutrophils 61 (36.-66.) % Lymphocytes (Manual) 30 (24-44) % Monocytes (Manual) 5 (0.0-12.0) % Eosinophils (Manual) 4 H (0.00-3.0) % Hypochromia 1+ Platelet Estimate NORMAL (NORMAL) RBC Morphology ABNORMAL Anisocytosis 1+ Sodium 135 L (137-145) mmol/L Potassium 4.3 (3.5-5.1) mmol/L Chloride 96 L (98-107) mmol/L Carbon Dioxide 26 (22-30) mmol/L Anion Gap 17.7 H (5-15) MEQ/L BUN 10 (9-20) mg/dL Creatinine 0.64 L (0.66-1.25) mg/dL Estimated GFR > 60.0 ML/MIN Glucose 300 H (74-106) mg/dL Calcium 9.4 (8.4-10.2) mg/dL Total Bilirubin 0.20 (0.2-1.3) mg/dL AST 58 (17-59) U/L ALT 56 H (0-50) U/L Alkaline Phosphatase 66 (38-126) U/L Serum Total Protein 6.9 (6.3-8.2) g/dL Albumin 4.4 (3.5-5.0) g/dL Urine Color YELLOW (YELLOW) Urine Appearance CLEAR (CLEAR) Urine pH 6.0 (5-6) Ur Specific [place] 1.020 (1.005-1.025) Urine Protein NEGATIVE (Negative) Urine Ketones SMALL (NEGATIVE) Urine Blood NEGATIVE (0-5) Godfrey/ul Urine Nitrite NEGATIVE (NEGATIVE) Urine Bilirubin NEGATIVE (NEGATIVE) Urine Urobilinogen NEGATIVE (0-1) mg/dL Ur Leukocyte Esterase NEGATIVE (NEGATIVE) Urine WBC (Auto) NONE (0-5) /HPF Urine RBC (Auto) NONE (0-2) /HPF U Epithel Cells (Auto) NONE (FEW) /HPF Urine Bacteria (Auto) NONE (NEGATIVE) /HPF Urine Culture Reflexed NO (NO) Urine Glucose >=500 (NEGATIVE) mg/dL Salicylates < 1.0 L (2-20) mg/dL Urine Opiates Level (NEGATIVE) Ur Methadone (NEGATIVE) Acetaminophen < 10 L (10-30) ug/ml Urine Barbiturates (NEGATIVE) Ur Phencyclidine (PCP) (NEGATIVE) Urine Amphetamine (NEGATIVE) U Benzodiazepine Level (NEGATIVE) Urine Cocaine (NEGATIVE) Urine Marijuana (THC) (NEGATIVE) Ethyl Alcohol < 10 (0-10) mg/dL SARS-CoV-2 Ag (Rapid) (NEGATIVE) - Progress Progress: improved Progress Note: Patient reassessed. He feels well. Suicidal ideation. Overdose. Hyperglycemia. Patient asymptomatic. Poison control requested repeat liver enzymes. Enzymes were similar to initial values. Patient accepted to [facility]. Patient cooperative. Mother was at bedside. They voiced no other complaints or concerns at this time. Toxicology screen essentially negative. [facility] request. Covid test completed. Patient Covid negative. Patient discharged to [facility] for further evaluation and treatment. 11/07/20 23:34 11/07/20 23:39 Counseled pt/family regarding: lab results, diagnosis, need for follow-up - Departure Departure Disposition: Transfer Clinical Impression: Suicidal ideation, Overdose, Hyperglycemia Condition: Stable Critical Care Time: No Referrals: TIGRE HARDIN [Primary Care Provider] -
[2020-11-07 15:03] LABS: Hematocrit 41.7 % (42-50); Hemoglobin 12.6 gm/dl (12.5-18.0); Mean Cell Volume 74.1 fl (78-100); Mean Corpuscular Hemoglobin 22.4 pg (26-32); Mean Corpuscular Hgb Concent. 30.2 g/dl (32-36); Mean Platelet Volume 10.7 fl (7.5-11.0); Platelet Count 227 K/mm3 (150-450); Red Blood Count 5.63 M/mm3 (4.1-5.6); Red Cell Distribution Width 17.9 % (11.5-14.0); White Blood Count 5.7 K/mm3 (4.0-10.5)
[2020-11-07 15:09] LABS: ACETAMINOPHEN < 10 ug/ml (10-30); ALBUMIN 4.4 g/dL (3.5-5.0); ALKALINE PHOSPHATASE 66 U/L (38-126); ANION GAP 17.7 MEQ/L (5-15); BLOOD UREA NITROGEN 10 mg/dL (9-20); CHLORIDE 96 mmol/L (98-107); Calcium 9.4 mg/dL (8.4-10.2); Carbon Dioxide 26 mmol/L (22-30); Creatinine 1 0.64 mg/dL (0.66-1.25); EST GLOMERULAR FILTRATION RATE > 60.0 ML/MIN; ETHYL ALCOHOL < 10 mg/dL (0-10); Glucose 300 mg/dL (74-106); Potassium 4.3 mmol/L (3.5-5.1); SALICYLATE < 1.0 mg/dL (2-20); SGOT/AST 58 U/L (17-59); SODIUM 135 mmol/L (137-145); Total Protein 6.9 g/dL (6.3-8.2)
[2020-11-07 15:15] LABS: SGPT/ALT 56 U/L (0-50)
[2020-11-07 16:06] LABS: Appearance CLEAR (CLEAR); Bilirubin NEGATIVE (NEGATIVE); Blood NEGATIVE Ery/ul (0-5); Glucose >=500 mg/dL (NEGATIVE); Ketones SMALL (NEGATIVE); Leukocyte Esterase NEGATIVE (NEGATIVE); Nitrite NEGATIVE (NEGATIVE); Protein,Urine Dip NEGATIVE (Negative); Urobilinogen NEGATIVE mg/dL (0-1)
[2020-11-07 16:09] LABS: ANISOCYTOSIS 1+; Eosinophil 4 % (0.00-3.0); Hypochromia 1+; Lymphocytes 30 % (24-44); Monocyte 5 % (0.0-12.0); Neutrophils 61 % (36.-66.); Platelet Estimate NORMAL (NORMAL); Total Cells Counted 100
[2020-11-07 16:19] LABS: Amphetamine,Urine NEGATIVE (NEGATIVE); Barbiturate,Urine NEGATIVE (NEGATIVE); Benzodiazepine,Urine NEGATIVE (NEGATIVE); Cocaine,Urine NEGATIVE (NEGATIVE); Methadone,Urine NEGATIVE (NEGATIVE); Opiate,Urine NEGATIVE (NEGATIVE); PCP,Urine NEGATIVE (NEGATIVE); THC,Urine NEGATIVE (NEGATIVE)
[2020-11-07 17:03] LABS: SGOT/AST 60 U/L (17-59); SGPT/ALT 55 U/L (0-50)
[2020-11-07] MEDS ORDERED: COREG 12.5 MG ONE (19:45)
[2020-11-07] MEDS ORDERED: COREG 12.5 MG PO SCH (22:00)
[2020-11-07 22:22] LABS: COVID AG -BINAX NOW RAPID TEST NEGATIVE (NEGATIVE)
[2020-11-07 23:14] VITALS: BP 140/92; PULSE 93
[2020-11-07 23:34] VITALS: O2SAT 98
== END 2020-11-07 23:17 | disposition short-term general hospital (02) ==
LOC: ED 14:05
DX: R45.851 Suicidal ideations (principal); T50.901A Poisoning by unspecified drugs, medicaments and biological substances, accidental (unintentional), initial encounter; E11.65 Type 2 diabetes mellitus with hyperglycemia; E78.00 Pure hypercholesterolemia, unspecified
CPT/HCPCS: 36415; 80053; 80307; 81001; 84450; 84460; 85025; 93005; 93041; 99000; 99285; G0480; A9270-GY

== ENCOUNTER 2021-02-22 06:49 | Day surgery (SDC) | payer OTHER ==
[2012-02-26 11:42] VITALS: BP 155/94
[2021-02-22] MEDS ORDERED: LIDOCAINE HCL 2% 100 MG/5 ML IJ ONE (06:50)
[2021-02-22] MEDS ORDERED: Ketamine HCl 50 MG/ML ONE (08:10)
[2021-02-22] MEDS ORDERED: DIPRIVAN 200 MG/20 ML IV ONE (08:10)
[2021-02-22] MEDS ORDERED: Lactated Ringers 1,000 ML IV ONE (09:43)
--- NOTE | 2021-02-22 10:44 | XRAY ---
Indication: Bilateral L4-S1 MBB. Intraoperative fluoroscopy provided for 9 seconds. Single digital spot image submitted for interpretation demonstrates posterior needle tips projecting over the expected left and right L4-S1 nerve roots. Correlate with intraoperative findings/report. Incidental overlying ventral mesh graft.
--- NOTE | 2021-02-22 11:42 | XRAY ---
9 seconds fluoroscopy time in surgery for bilateral L4-S1 MBB.
== END 2021-02-22 08:45 | disposition home or self-care (01) ==
LOC: SDC-PAIN 06:49
PROVIDERS: ATTEND Psychiatry & Neurology Pain Medicine
DX: M47.816 Spondylosis without myelopathy or radiculopathy, lumbar region (principal); E11.9 Type 2 diabetes mellitus without complications; Z79.899 Other long term (current) drug therapy
CPT/HCPCS: 64493; 64494; 72020; 77002; 82947; J2704

== ENCOUNTER 2021-03-22 08:12 | Day surgery (SDC) | payer OTHER ==
[2012-02-26 11:42] VITALS: BP 155/94
[2021-03-22] MEDS ORDERED: BUPIVACAINE 0.5% VIAL IJ ONE (08:13)
[2021-03-22] MEDS ORDERED: DIPRIVAN 200 MG/20 ML IV ONE (09:04)
[2021-03-22] MEDS ORDERED: Lactated Ringers 1,000 ML IV ONE (16:10)
--- NOTE | 2021-03-23 11:19 | XRAY ---
17 seconds fluoroscopy time in surgery for bilateral L4-S1 MBB.
--- NOTE | 2021-03-25 22:31 | XRAY ---
Indication: Bilateral L4-S1 MBB. Intraoperative fluoroscopy was provided for 17 seconds. Single digital spot image submitted for interpretation demonstrates posterior needle tips projected over the expected left and right L4-S1 nerve roots. Correlate with intraoperative findings/report.
== END 2021-03-22 09:35 | disposition home or self-care (01) ==
LOC: SDC-PAIN 08:12
PROVIDERS: ATTEND Psychiatry & Neurology Pain Medicine
DX: M47.816 Spondylosis without myelopathy or radiculopathy, lumbar region (principal); E11.9 Type 2 diabetes mellitus without complications; Z79.899 Other long term (current) drug therapy
CPT/HCPCS: 64493; 64494; 72020; 77002; 82947; J2704

== ENCOUNTER 2021-04-12 10:00 | Day surgery (SDC) | payer OTHER ==
[2012-02-26 11:42] VITALS: BP 155/94
[2021-04-12] MEDS ORDERED: BUPIVACAINE 0.5% VIAL IJ ONE (10:01)
[2021-04-12] MEDS ORDERED: Xylocaine 1% Vial 30 ML PF IJ ONE (10:01)
[2021-04-12] MEDS ORDERED: Depo-Medrol 40 MG/ML IM ONE (10:01)
[2021-04-12] MEDS ORDERED: DIPRIVAN 200 MG/20 ML IV ONE ×2 (10:52→11:04)
--- NOTE | 2021-04-12 13:01 | XRAY ---
Indication: Right L4-S1 RFA. Intraoperative fluoroscopy provided for 37 seconds. 3 digital spot image submitted for interpretation demonstrate posterior needle tips projecting over the expected right L4-S1 nerve roots. Correlate with intraoperative findings/report.
--- NOTE | 2021-04-12 13:03 | XRAY ---
37 seconds fluoroscopy time in surgery for right L4-S1 RFA.
[2021-04-12] MEDS ORDERED: Lactated Ringers 1,000 ML IV ONE (15:26)
== END 2021-04-12 11:25 | disposition home or self-care (01) ==
LOC: SDC-PAIN 10:00
PROVIDERS: ATTEND Psychiatry & Neurology Pain Medicine
DX: M47.816 Spondylosis without myelopathy or radiculopathy, lumbar region (principal); E11.9 Type 2 diabetes mellitus without complications; Z79.899 Other long term (current) drug therapy
CPT/HCPCS: 64635; 64636; 72100; 77002; 82947; J1030; J2001; J2704

== ENCOUNTER 2021-04-26 09:23 | Day surgery (SDC) | payer OTHER ==
[2012-02-26 11:42] VITALS: BP 155/94
[2021-04-26] MEDS ORDERED: Depo-Medrol 40 MG/ML IM ONE (09:24)
[2021-04-26] MEDS ORDERED: BUPIVACAINE 0.5% VIAL IJ ONE (09:24)
[2021-04-26] MEDS ORDERED: Xylocaine 1% Vial 30 ML PF IJ ONE (09:24)
[2021-04-26] MEDS ORDERED: DIPRIVAN 200 MG/20 ML IV ONE (10:15)
--- NOTE | 2021-04-26 11:47 | XRAY ---
32 seconds fluoroscopy time in surgery for left L4-S1 RFA.
--- NOTE | 2021-04-26 11:56 | XRAY ---
Indication: Left L4-S1 RFA. Intraoperative fluoroscopy provided for 32 seconds. 3 digital spot image submitted for interpretation demonstrate posterior needle tips projecting over the expected left L4-S1 nerve roots. Correlate with intraoperative findings/report.
[2021-04-26] MEDS ORDERED: Lactated Ringers 1,000 ML IV ONE (17:24)
== END 2021-04-26 10:44 | disposition home or self-care (01) ==
LOC: SDC-PAIN 09:23
PROVIDERS: ATTEND Psychiatry & Neurology Pain Medicine
DX: M47.816 Spondylosis without myelopathy or radiculopathy, lumbar region (principal); E11.9 Type 2 diabetes mellitus without complications; M79.7 Fibromyalgia; I10 Essential (primary) hypertension; F41.9 Anxiety disorder, unspecified; F32.9 Major depressive disorder, single episode, unspecified; I51.9 Heart disease, unspecified; Z79.899 Other long term (current) drug therapy
CPT/HCPCS: 64635; 64636; 72100; 77002; 82947; J1030; J2001; J2704

== ENCOUNTER 2022-03-01 10:05 | Emergency (ER) | payer OTHER ==
--- NOTE | 2022-03-01 11:36 | XRAY ---
Indication: Left hip pain. No known injury. Comparison: None AP pelvis and 2 view left hip demonstrates partially visualized ventral hernia mesh graft. No other bony, articular, or soft tissue abnormalities.
[2022-03-01] MEDS ORDERED: TORAdol 30 mg Injection IM ONE (11:51)
[2022-03-01 11:52] VITALS: BP 145/92; PULSE 95
[2022-03-01] MEDS ORDERED: TORAdol 30 mg Injection ONE (11:52)
--- NOTE | 2022-03-01 11:55 | ERPHSYRPT ---
- History of Present Illness Time Seen by Provider: 03/01/22 10:30 Source: patient Exam Limitations: no limitations Patient Subjective Stated Complaint: Left hip pain Triage Nursing Assessment: Patient brought back to ED via w/c and transferred to bed per self. Patient A+O x3. Patient's skin pink, warm and dry. Patient complains of left hip pain that started yesterday when he was getting out of a vehicle. Patient denies recent injury or trauma. Patient states when ambulating the pain is in his left hip and will go into back 10/10. Patient states when at rest pain is 2/10. No shortening of extremity or internal/external rotation noted to left leg. Physician History: Patient 36-year-old male presents to our ED for evaluation of pain to his left hip. Patient has a BMI of 50.8. Patient states he injured his left hip while he was getting into his car. Pain described as an ache that is localized to the left posterior lateral hip. Certain movements cause the pain to radiate towards his back. Patient denies back pain. No testicular pain. No abdominal pain. Pain improved at rest. Pain worse with active motion and weightbearing. Patient denies history of the same. No falls no injuries no trauma. Patient voices no other complaints or concerns at this time. Portions of this note were created with voice recognition technology. There may be grammatical, spelling, punctuation or sound alike errors Method of Injury: unknown Occurred: yesterday Quality: intermittent Severity of Pain-Max: moderate Severity of Pain-Current: mild Lower Extremities Pain: hip: left Modifying Factors: Improves With: movement (Movement weightbearing reproduce symptoms.) Associated Symptoms: none Allergies/Adverse Reactions: adhesive tape Allergy (Verified 03/01/22 10:17) turmeric Allergy (Verified 03/01/22 10:17) Anaphylactic Reaction Home Medications: Divalproex Sodium [Depakote] 1,500 mg PO HS 10/17/16 [History] Duloxetine HCl [Cymbalta] 120 mg PO DAILY 10/17/16 [History] Losartan Potassium [Cozaar] 100 mg PO DAILY 10/17/16 [History] clonazePAM [Klonopin] 1 mg PO TID 10/17/16 [History] Furosemide 40 mg [Lasix 40 MG] 40 mg PO DAILY 12/28/16 [History] Potassium Chloride 8 meq PO DAILY 12/28/16 [History] Aspirin 81 mg PO DAILY 12/12/17 [History] Montelukast Sodium 10 mg [Singulair 10 MG] 10 mg PO DAILY 12/12/17 [History] Naproxen 375 mg [Naprosyn 375 mg] 375 mg PO BID 12/12/17 [History] Sitagliptin Phosphate [Januvia] 25 mg PO DAILY 12/12/17 [History] Fluticasone Propionate [Flonase Allergy Relief] 1 spray NS BID 02/15/18 [His tory] Fluticasone/Salmeterol 500/50* [Advair 500-50 Diskus] 2 each IH BID 02/15/18 [History] Pregabalin [Lyrica 75 mg Cap] 75 mg PO TID 04/19/18 [History] Albuterol Sulfate [Albuterol Sulfate Hfa] 3 inh PO Q6H PRN 11/07/20 [History] Diltiazem HCl [Cardizem] 30 mg PO TID 11/07/20 [History] Dulaglutide [Trulicity] 1.5 mg SQ WEEKLY 11/07/20 [History] Loratadine 10 mg [Claritin 10 mg] 10 mg PO DAILY 11/07/20 [History] Quetiapine Fumarate [Seroquel] 50 mg PO DAILY 11/07/20 [History] Simvastatin 10 mg [Zocor 10MG] 10 mg PO DAILY 11/07/20 [History] buPROPion HCL [Bupropion HCl Sr] 100 mg PO DAILY 11/07/20 [History] carvediloL [Carvedilol] 25 mg PO BID 11/07/20 [History] Hx Tetanus, Diphtheria Vaccination/Date Given: Yes Hx Influenza Vaccination/Date Given: No Hx Pneumococcal Vaccination/Date Given: No Immunizations Up to Date: Yes Travel Risk - International Travel Have you traveled outside of the country in past 3 weeks: No - Coronavirus Screening Are you exhibiting any of the following symptoms?: No Close contact with a COVID-19 positive Pt in past 14-21 Days: No - Vaccine Status Have you recieved a Covid-19 vaccination: Yes 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 - Vaccination Dates Date of 2cond Vaccination (if applicable): November 15, 2020 - Review of Systems Constitutional: No Symptoms, No Fever, No Chills Eyes: No Symptoms Ears, Nose, & Throat: No Symptoms Respiratory: No Symptoms, No Cough, No Dyspnea Cardiac: No Symptoms, No Chest Pain, No Edema, No Syncope Abdominal/Gastrointestinal: No Symptoms, No Abdominal Pain, No Nausea, No Vomiting, No Diarrhea Genitourinary Symptoms: No Symptoms, No Dysuria Musculoskeletal: No Symptoms, No Back Pain, No Neck Pain Skin: No Symptoms, No Rash Neurological: No Symptoms, No Dizziness, No Focal Weakness, No Sensory Changes Psychological: No Symptoms Endocrine: No Symptoms Hematologic/Lymphatic: No Symptoms Immunological/Allergic: No Symptoms All Other Systems: Reviewed and Negative - Past Medical History Pertinent Past Medical History: Yes Neurological History: No Pertinent History ENT History: No Pertinent History Cardiac History: Arrhythmia, High Cholesterol, Hypertension Respiratory History: Asthma, Bronchitis Endocrine Medical History: Diabetes Type II, Other Musculoskeletal History: Fractures, Osteoarthritis GI Medical History: Gallbladder Disease, Hernia, Other History: No Pertinent History Psycho-Social History: Anxiety, Depression, Other Male Reproductive Disorders: No Pertinent History Other Medical History: liver disease, Hemachromatosis. Pt denies COPD but does have hx of asthmatic bronchitis. Tachycardia - Past Surgical History Past Surgical History: Yes Neuro Surgical History: No Pertinent History Cardiac: No Pertinent History Respiratory: No Pertinent History Gastrointestinal: Cholecystectomy, Hernia Repair Genitourinary: No Pertinent History Musculoskeletal: Other Male Surgical History: No Pertinent History Other Surgical History: central line [place] CV catheter X 9 - Social History Smoking Status: Never smoker Exposure to second hand smoke: Yes Drug Use: none Patient Lives Alone: No - Nursing Vital Signs Nursing Vital Signs: Initial Vital Signs Temperature 97.9 F 03/01/22 10:17 Pulse Rate 103 H 03/01/22 10:17 Respiratory Rate 19 03/01/22 10:17 Blood Pressure 188/97 03/01/22 10:17 O2 Sat by Pulse Oximetry 97 03/01/22 10:17 Pain Scale Pain Intensity 10 - Physical Exam General Appearance: no apparent distress, alert Eyes, Ears, Nose, Throat Exam: moist mucous membranes Neck Exam: normal inspection, non-tender, supple Cardiovascular/Respiratory Exam: chest non-tender, normal breath sounds, regular rate/rhythm, no respiratory distress Gastrointestinal/Abdominal Exam: non-tender, guarding Back Exam: normal inspection, No vertebral tenderness Hips Exam: right: non-tender, normal inspection, normal range of motion, no evidence of injury, left: pain, other (Involved left lower extremity is neurovascular tact distally. Compartments are soft. Cap refill less than 2 seconds. Active hip flexion and abduction reproduce pain.) Knees Exam: bilateral knee: non-tender, normal inspection, normal range of motion, no evidence of injury Ankle Exam: bilateral ankle: non-tender, normal inspection, normal range of motion, no evidence of injury Foot Exam: bilateral foot: non-tender, normal inspection, normal range of motion, no evidence of injury Neuro/Tendon Exam: normal sensation, normal motor functions Mental Status Exam: alert, oriented x 3, cooperative Skin Exam: normal color, warm, dry SpO2 Interpretation: normal SpO2: 97 O2 Delivery: Room Air - Course Nursing assessment & vital signs reviewed: Yes - Radiology Exams Hip X-ray Interpretation: Teleradiologist Report (No fractures or dislocations.) Ordered Tests: Active Orders 24 hr Category Date Time Status HIP UNI (2V) INCL PEL IF DONE Stat Exams 03/01/22 11:08 Completed - Progress Progress: improved Progress Note: Patient reassessed. Patient received Toradol for pain control. X-ray negative for fracture dislocation. We will refer patient to the orthopedic clinic for further evaluation and treatment of left hip pain. Patient will follow-up tomorrow as discussed. He voices no other complaints or concerns at this time. We will give patient a pair of bilateral axillary crutches in the meantime. Patient will follow-up in the orthopedic clinic tomorrow. Orthopedic referral completed Portions of this note were created with voice recognition technology. There may be grammatical, spelling, punctuation or sound alike errors 03/01/22 11:56 Counseled pt/family regarding: diagnosis, need for follow-up, rad results - Departure Departure Disposition: Home Clinical Impression: Hip pain, left Condition: Stable Critical Care Time: No Referrals: TIGRE HARDIN [Primary Care Provider] - Follow up/PCP as directed Additional Instructions: Discharge/Care Plan RODNEY GOMEZ was seen on 03/01/22 in the Emergency Room. The patient was counseled regarding Diagnosis,Lab results, Imaging studies, need for follow up and when to return to the Emergency Room. Prescriptions given: Discharge Note I have spoken with the patient and/or caregivers. I have explained the patient's condition, diagnosis and treatment plan based on the information available to me at this time. I have answered the patient's and/or caregiver's questions and addressed any concerns. The patient and/or caregivers have as good understanding of the patient's diagnosis, condition and treatment plan as can be expected at this point. The vital signs have been stable. The patient's condition is stable and appropriate for discharge from the emergency department. The patient will pursue further outpatient evaluation with the primary care physician or other designated or consulting physician as outlined in the discharge instructions. The patient and/or caregivers are agreeable to this plan of care and follow-up instructions have been explained in detail. The patient and/or caregivers have received these instruction. The patient/and or caregivers are aware that any significant change in condition or worsening of symptoms should prompt an immediate return to this or the closest emergency department or call 911. Outpatient Orders: Ortho Referral Time Frame: 1 Day, Facility: [facility]. Hosp, Location: [facility]
[2022-03-01 11:56] VITALS: O2SAT 97
== END 2022-03-01 12:14 | disposition home or self-care (01) ==
LOC: ED 10:05
DX: M25.552 Pain in left hip (principal); E78.5 Hyperlipidemia, unspecified; I10 Essential (primary) hypertension; E11.9 Type 2 diabetes mellitus without complications; Z79.84 Long term (current) use of oral hypoglycemic drugs; Z79.899 Other long term (current) drug therapy
CPT/HCPCS: 73502; 96372; 99283; J1885

== ENCOUNTER 2022-04-25 07:20 | Day surgery (SDC) | payer OTHER ==
[2012-02-26 11:42] VITALS: BP 155/94
[2022-04-25] MEDS ORDERED: BUPIVACAINE 0.5% VIAL IJ ONE (07:21)
[2022-04-25] MEDS ORDERED: Depo-Medrol 40 MG/ML IM ONE (07:21)
[2022-04-25] MEDS ORDERED: DIPRIVAN 200 MG/20 ML IV ONE (09:09)
--- NOTE | 2022-04-25 11:46 | XRAY ---
Indication: Left hip injection. Intraoperative fluoroscopy provided for 21 seconds. Single digital spot image submitted for interpretation demonstrates needle tip lateral to the left femur neck. Small amount of contrast injected for needle tip placement. Correlate with intraoperative findings/report.
--- NOTE | 2022-04-25 12:11 | XRAY ---
21 seconds of fluoroscopy was used in surgery for a left hip intra-articular injection.
[2022-04-25] MEDS ORDERED: Lactated Ringers 1,000 ML IV ONE (12:58)
== END 2022-04-25 09:30 | disposition home or self-care (01) ==
LOC: SDC-PAIN 07:20
PROVIDERS: ATTEND Psychiatry & Neurology Pain Medicine
DX: M16.12 Unilateral primary osteoarthritis, left hip (principal); E11.9 Type 2 diabetes mellitus without complications; Z79.899 Other long term (current) drug therapy
CPT/HCPCS: 20610; 73501; 77002; 77003; 82947; J1030; J2704; Q9966

== ENCOUNTER 2024-03-25 13:15 | Day surgery (SDC) | payer OTHER ==
[2012-02-26 11:42] VITALS: BP 155/94
[2024-03-25] MEDS ORDERED: LIDOCAINE HCL 1% AMPUL 5 ML IJ ONE (13:16)
[2024-03-25] MEDS ORDERED: BUPIVACAINE 0.5% VIAL IJ ONE (13:16)
[2024-03-25] MEDS ORDERED: Depo-Medrol 40 MG/ML IM ONE (13:16)
[2024-03-25] MEDS ORDERED: Lactated Ringers 1,000 ML IV ONE (15:20)
--- NOTE | 2024-03-25 16:55 | XRAY ---
Indication: Right L4-S1 RFA. Intraoperative fluoroscopy provided for 26 seconds. 6 digital spot image submitted for interpretation demonstrates posterior needle tips projecting over the expected right L4-S1 nerve roots. Correlate with intraoperative findings/report.
--- NOTE | 2024-03-25 17:05 | XRAY ---
26 seconds of fluoroscopy were used in surgery for a right L4-S1 RFA.
== END 2024-03-25 15:41 | disposition home or self-care (01) ==
LOC: SDC-PAIN 13:15
PROVIDERS: ATTEND Psychiatry & Neurology Pain Medicine
DX: M47.816 Spondylosis without myelopathy or radiculopathy, lumbar region (principal); E11.9 Type 2 diabetes mellitus without complications
CPT/HCPCS: 64635; 64636; 72100; 77002; 82947

== ENCOUNTER 2024-04-01 15:10 | Day surgery (SDC) | payer OTHER ==
[2012-02-26 11:42] VITALS: BP 155/94
[2024-04-01] MEDS ORDERED: LIDOCAINE HCL 1% AMPUL 5 ML IJ ONE (15:11)
[2024-04-01] MEDS ORDERED: BUPIVACAINE 0.5% VIAL IJ ONE (15:11)
[2024-04-01] MEDS ORDERED: Depo-Medrol 40 MG/ML IM ONE (15:11)
[2024-04-01] MEDS ORDERED: Lactated Ringers 1,000 ML IV ONE (16:56)
--- NOTE | 2024-04-01 18:59 | XRAY ---
Indication: Left L4-S1 RFA. Intraoperative fluoroscopy provided for 30 seconds. 3 digital spot image submitted for interpretation demonstrates posterior needle tips projecting over expected left L4-S1 nerve roots. Correlate with intraoperative findings/report.
--- NOTE | 2024-04-02 09:30 | XRAY ---
30 seconds of fluoroscopy was used in surgery for a left L4-S1 RFA.
== END 2024-04-01 17:37 | disposition home or self-care (01) ==
LOC: SDC-PAIN 15:10
PROVIDERS: ATTEND Psychiatry & Neurology Pain Medicine
DX: M47.816 Spondylosis without myelopathy or radiculopathy, lumbar region (principal)
CPT/HCPCS: 64635; 64636; 72100; 77002; 82947

== ENCOUNTER 2024-10-21 16:13 | Day surgery (SDC) | payer OTHER ==
[2012-02-26 11:42] VITALS: BP 155/94
[2024-10-21] MEDS ORDERED: LIDOCAINE HCL 1% AMPUL 5 ML IJ ONE (16:14)
[2024-10-21] MEDS ORDERED: BUPIVACAINE 0.5% VIAL IJ ONE (16:14)
[2024-10-21] MEDS ORDERED: Depo-Medrol 40 MG/ML IM ONE (16:14)
--- NOTE | 2024-10-21 20:16 | XRAY ---
Indication: Bilateral SI joint injection. Intraoperative fluoroscopy provided for 39 seconds. 3 digital spot images submitted for interpretation demonstrates posterior needle tips projecting over left and right SI joint. Small amount of contrast injected for needle tip placement. Correlate with intraoperative findings/report.
--- NOTE | 2024-10-21 21:51 | XRAY ---
39 seconds of fluoroscopy were used in surgery for bilateral sacroiliac joint injections.
== END 2024-10-21 16:15 | disposition home or self-care (01) ==
LOC: SDC-PAIN 16:13
PROVIDERS: ATTEND Psychiatry & Neurology Pain Medicine
DX: M46.1 Sacroiliitis, not elsewhere classified (principal); E11.9 Type 2 diabetes mellitus without complications
CPT/HCPCS: 27096; 72202; 82947; Q9966

== ENCOUNTER 2024-11-04 14:43 | Day surgery (SDC) | payer OTHER ==
[2012-02-26 11:42] VITALS: BP 155/94
[2024-11-04] MEDS ORDERED: methylPREDNISolone acetate IM ONE (14:44)
[2024-11-04] MEDS ORDERED: LIDOCAINE HCL 1% 50 MG/5 ML VL IJ ONE (14:44)
[2024-11-04] MEDS ORDERED: BUPIVACAINE 0.5% VIAL IJ ONE (14:44)
--- NOTE | 2024-11-04 20:04 | XRAY ---
Indication: Right L4-S1 RFA. Intraoperative fluoroscopy provided for 42 seconds. 3 digital spot image submitted for interpretation demonstrates posterior needle tips projecting over expected right L4-S1 nerve roots. Correlate with intraoperative findings/report.
--- NOTE | 2024-11-05 08:52 | XRAY ---
42 seconds of fluoroscopy was used in surgery for a right L4-S1 RFA.
== END 2024-11-04 17:13 | disposition home or self-care (01) ==
LOC: SDC-PAIN 14:43
PROVIDERS: ATTEND Psychiatry & Neurology Pain Medicine
DX: M47.817 Spondylosis without myelopathy or radiculopathy, lumbosacral region (principal); E11.9 Type 2 diabetes mellitus without complications
CPT/HCPCS: 64635; 64636; 72100; 82947; J1010

== ENCOUNTER 2024-11-05 07:49 | Day surgery (SDC) | payer OTHER ==
[2012-02-26 11:42] VITALS: BP 155/94
[2024-11-05] MEDS ORDERED: methylPREDNISolone acetate IM ONE (07:50)
[2024-11-05] MEDS ORDERED: BUPIVACAINE 0.5% VIAL IJ ONE (07:50)
[2024-11-05] MEDS ORDERED: LIDOCAINE HCL 1% AMPUL 5 ML IJ ONE (07:50)
[2024-11-05] MEDS ORDERED: Lactated Ringers 1,000 ML IV ONE (09:41)
--- NOTE | 2024-11-05 10:56 | XRAY ---
Indication: Left L4-S1 RFA. Intraoperative fluoroscopy provided for 40 seconds. 4 digital spot image submitted for interpretation demonstrates posterior needle tips projecting over expected left L4-S1 nerve roots. Correlate with intraoperative findings/report.
--- NOTE | 2024-11-05 12:22 | XRAY ---
40 seconds of fluoroscopy was used in surgery for a left L4-S1 RFA.
== END 2024-11-05 09:36 | disposition home or self-care (01) ==
LOC: SDC-PAIN 07:49
PROVIDERS: ATTEND Psychiatry & Neurology Pain Medicine
DX: M47.817 Spondylosis without myelopathy or radiculopathy, lumbosacral region (principal); E11.9 Type 2 diabetes mellitus without complications
CPT/HCPCS: 64635; 64636; 72100; 82947; J1010